=== PATIENT | female | born 1970 | race Caucasian/White ===

== ENCOUNTER 2016-06-29 07:07 | Observation (INO) | payer MEDICAID, SELFPAY ==
[2016-06-29] VITALS (16 sets, daily range): BP systolic 102–115; BP diastolic 57–76; PULSE 91–112; RESP 16–32; TEMP 36.4–36.9; O2SAT 95–99; BMI 16.4; BMI 14.5
--- NOTE | 2016-06-29 07:24 | RAD_ITS ---
STUDY: X-RAY CHEST REASON FOR EXAM: Female, 46 years old. The patient has a history of COPD. TECHNIQUE: AP and lateral views of the chest. COMPARISON: Comparison is made with prior study dated June 25, 2016. FINDINGS: EKG electrodes are seen. A battery pack device is seen overlying the right upper hemithorax. Hyperinflation. Once again, there is a severe degree of emphysematous changes in both lungs worse in the upper lobes and more prominent on the left side. This is unchanged. There is no demonstrated pleural abnormality. Normal size heart. Normal mediastinum and yamila. Normal visualized pulmonary arteries. Normal visualized aortic arch and descending thoracic aorta. Normal visualized thoracic spine. Normal visualized ribs, clavicles, and shoulders. There is no demonstrated abnormality of the visualized soft tissue structures of the upper abdomen. RAD/Chest PA and Lateral IMPRESSION: Hyperinflation. Severe emphysematous changes. There has been essentially no change since prior study. Electronically Signed: Jameson Navarro MD at 8:18 EDT Tel [phone], Service support [phone],
--- NOTE | 2016-06-29 07:24 | EKG12_ITS ---
Test Reason : SOB Blood Pressure : / mmHG Vent. Rate : 098 BPM Atrial Rate : 098 BPM P-R Int : 134 ms QRS Dur : 072 ms QT Int : 336 ms P-R-T Axes : 083 203 069 degrees QTc Int : 428 ms Sinus rhythm Biatrial enlargement Abnormal ECG Low voltage QRS Confirmed by LEBRON MINAYA ([id number]), video news editor MICHEL KINNEY ([id number]) on 07/01/2016 2:55:00 PM Referred By: CLAUDIA Confirmed By:LEBRON MINAYA
[2016-06-29] MEDS: Ipratropium/Albuterol Sulfate 3 ML AMPUL.NEB INHALATION ×5 (07:34→22:27)
[2016-06-29] MEDS: MethylPREDNISolone 125 MG/2 ML Vial IV (07:41)
[2016-06-29 07:57] LABS: Absolute Lymphocyte Count 3.38 X10^3/ul (0.83-4.51); Absolute Neutrophil Count 7.4 X10^3/uL (2.0-7.7); Basophil# 0.06 X10^3/uL; Basophil% 0.5 % (0-1); Eosinophil# 0.26 X10^3/uL; Eosinophils% 2.2 % (0-5); Hemoglobin 14.6 g/dl (12.0-15.0); Lymphocyte # 3.38 X10^3/ul (4.0); Lymphocyte % 28.3 % (19-41); Mean Corpuscular Hgb 31.2 pg (27.0-32.0); Mean Corpuscular Volume 91.9 fL (81-99); Mean Platelet Vol. 9.2 fl (6.2-12.0); Monocyte# 0.83 X10^3/uL; Monocyte% 6.9 % (0-10); Neutrophil # 7.39 X10^3/uL (2.7-7.7); Neutrophil % 61.8 % (47-70); Platelet Count 296 K/mm3 (150-450); RBC Distribution Width CV 12.8 % (11.6-14.6); Red Blood Count 4.68 M/mm3 (4.2-5.4)
[2016-06-29 07:58] LABS: POSITIVE COUNT NO; POSITIVE DIFFERENTIAL NO; POSITIVE MORPHOLOGY NO
[2016-06-29 08:10] LABS: Anion Gap 11 (5-15); BUN 8 mg/dL (7-18); BUN/Creat Ratio 12.5 RATIO (10-20); Chloride 98 mmol/L (98-107); Creatinine, Serum 0.64 mg/dL (0.55-1.02); EST Glomerular Filtration Rate 105 mL/min (>60); Est Glom Filt Rate - Afr Amer 127 mL/min (>60); Estimated Creatinine Clearance 75.86 ml/min; Glucose 95 mg/dL (70-110); Potassium 3.6 mmol/L (3.5-5.1); Sodium Level 137 mmol/L (136-145)
--- NOTE | 2016-06-29 08:25 | HP.PCM_ITS ---
History of Present Illness Date of Admission: 06/29/16 Chief Complaint: Shortness of breath The patient is a 46 year old femur female came into the ED complaining of shortness of breath. Patient states that she does have worsening shortness of breath she noticed for the last 2 weeks. Per patient she was treated as outpatient with antibiotics for which he thought his pneumonia, but she did not notice improvement. In the ED patient was tachypnea, labored breathing, but was saturating high 90s on 2 L of oxygen. She did have decreased air entry and wheezing all over. Afebrile. Mildly tachycardic. Patient reports worsening cough productive of yellow sputum for the last 2 weeks, pain in the level of right diaphragm that is persistent and is worse with coughing. She reports chills and rigors, although her temperature at home was 97?F. She reports decreased appetite, mild nausea, but no vomiting. Denies urinary/neuro complaints. She continues to smoke 1 cigarette every hour. Past medical history. Advanced COPD with severe emphysema. Malnutrition. Generalized anxiety disorder. Obsessive-compulsive disorder. Osteoporosis. PTSD. History of panic attacks. Restless leg syndrome. Tobacco use disorder. History of noncompliance with medical recommendations. Social history. Patient lives by herself, visiting aides assisting her with her daily activities. She is using walker to ambulate. Per patient she has some arrangements with assisted, but she is waiting for approval. Patient continues to smoke about 1 pack per day daily,, states that she smokes a cigarette every hour. Denies use of alcohol or street drugs. She is a former alcoholic. Family history. History of psychiatric problems, asthma, COPD, diabetes, dementia, CAD, hypertension. Past Medical History Past Medical History (Chronic Problems): Chronic Problems COPD emphysema severe (Chronic) Generalized anxiety disorder (Chronic) Moderate malnutrition (Chronic) Neuropathy (Chronic) Noncompliance (Chronic) Obsessive compulsive disorder (Chronic) Osteoporosis (Chronic) PTSD (post-traumatic stress disorder) (Chronic) Panic attacks (Chronic) Restless leg syndrome (Chronic) Tobacco abuse (Chronic) Underweight (Chronic) Allergies sulfasalazine Allergy (Verified 06/29/16 07:09) Hives aspartame [From Nutrasweet Aspartame] Adverse Reaction (Verified 06/29/16 07:09) light headedness and nausea light headedness and nausea citric acid Adverse Reaction (Verified 06/29/16 07:09) Mucosal lesions docusate sodium [From Colace] Adverse Reaction (Verified 06/29/16 07:09) dizzy, lightheaded, hallucinations dizzy, light headed, hallucinations fluoxetine Adverse Reaction (Verified 06/29/16 07:09) made me mean made me mean nicotine polacrilex [From Nicorette] Adverse Reaction (Verified 06/29/16 07:09) dizzy spells, light headedness dizzy spells, light headedness phenytoin sodium [From Dilantin] Adverse Reaction (Verified 06/29/16 07:09) made me feel drugged up used for scleroderma, made me feel drugged up phenytoin sodium extended [From Dilantin] Adverse Reaction (Verified 06/29/16 07 :09) made me feel drugged up Home Medications: Ambulatory Orders Medication Instructions Recorded Alendronate Sodium [Fosamax] 70 mg PO TH 02/12/15 Fluticasone/Salmeterol [Advair 1 puff INHALATION BID 02/12/15 250/50 Mcg Diskus] Pantoprazole Sodium [Protonix] 20 mg PO DAILY #30 tablet 08/10/15 Ergocalciferol [Vitamin D] 50,000 unit PO TH 11/06/15 Polyethylene Glycol 3350 [Miralax] 17 gm PO DAILY 11/06/15 Calcium Carbonate/Vitamin D3 2 tab PO DAILY 03/28/16 [Calcium 600-Vit D3 200 Tablet] Ipratropium/Albuterol Sulfate 3 ml INHALATION Q4H 03/28/16 [Duoneb] Guaifenesin [Mucinex] 1,200 mg PO BID #60 tablet 03/30/16 Levalbuterol Tartrate [Xopenex Hfa 2 puff INHALATION Q4H PRN PRN #1 04/23/16 Inhaler] hfa.aer.ad PredniSONE 40 mg PO DAILY@0800 #8 tablet 06/25/16 Surgical History: noncontributory Psychiatric History: No pertinent psych hx INSTRUCTIONAL SUPERVISOR History: No pertinent INSTRUCTIONAL SUPERVISOR history Smoking Status: Current every day smoker - *Family History Maternal History Items: - - Scoliosis and possible bipolar disorder Paternal History Items: Asthma, COPD, Diabetes, Dementia, Heart Disease, Hypertension Sibling History Items: Asthma Offspring History Items: Asthma Review of Systems Constitutional: Reports: Anorexia, Chills, Malaise, Weakness, Weight Change, Fatigue. Denies: Fever, Night Sweats Eyes: Denies: Vision Change HEENT: Denies: Visual Changes Cardiovascular: Reports: Chest Pain - At the level of right diaphragm. Denies: Chest Pressure, Chest Tightness, Edema, Light Headedness, Palpitations, Syncope Respiratory: Reports: Cough, Pleuritic Pain, Shortness of Breath, Shortness of breath at rest, Sputum production, Wheezing. Denies: Hemoptysis Gastrointestinal: Reports: Constipation, Nausea - With cough. Denies: Abdominal Pain, Diarrhea, Dyspepsia, Hematochezia, Melena, Vomiting Genitourinary: Denies: Dysuria, Hematuria, Hesitancy, Incontinence, Retention, Urgency Gynecological: Denies: Vaginal discharge, Vaginal itching Musculoskeletal: Denies: Hand Pain, Joint Pain, Leg Pain, Muscle pain Skin: Denies: Dryness, Jaundice, Lesions Neurological: Denies: Blurred vision, Double vision, Change in Speech, Slurred speech, Confusion, Difficulty swallowing, Focal weakness, Headaches, Incoordination, Numbness, Tingling, Tremor, Seizures Psychiatric: Reports: Anxiety, Depression. Denies: Suicidal Ideations Endocrine: Denies: Change in Body Habitus Hematologic/ Lymphatic: Denies: Adenopathy, Anemia, Petechiae, Purpura, Hx of blood clot VTE Information - Inpt Only VTE Present on Admission: No Objective: General: Patient is laying in bed, in mild respiratory distress due to tachypnea , using accessory muscles. She is able to speak in brief sentences. Awake, alert, oriented ?3. Noted significant muscle wasting all over, no fat tissue noticed, BMI of 14.5. HEENT: Atraumatic, Normocephalic. Clear conjunctiva. Oral mucosa is slightly dry. Neck: No nodules noted, no asymmetry. PERRLA. Skin: Clean, dry, thin and fragile. No visible rashes. Lungs: Diminished air entry bilaterally, wheezing all over, breathing is labored , tachypneic, use of accessory muscles. Mild tenderness to touch in the level of right hemidiaphragm. CVS: S1-S2 present, no murmurs appreciated, regular rate, good radial pulses. Capillary refill is less than 3 Seconds. Abdomen: Soft, nontender, nondistended, bowel sounds present. No CVA tenderness. Extremities: No clubbing, No cyanosis. No visible deformities. No lower extremity edema. Psych/Mental Status: Patient does look somewhat anxious, but cooperative and appropriate. Neuro: No focal neurological findings. - Physical Exam Vital Signs Temp Pulse Resp BP Pulse Ox 36.9 C 99 16 115/69 99 06/29/16 07:09 06/29/16 07:30 06/29/16 07:30 06/29/16 07:09 06/29/16 07:09 Oxygen Flow Rate 2 Oxygen Delivery Method Nasal Cannula Weight: 44.7 kg Body Mass Index (BMI) 16.4 Laboratory Tests Past 24 Hrs 06/29/16 06/29/16 07:30 07:30 WBC 12.0 H RBC 4.68 Hgb 14.6 Hct 43.0 MCV 91.9 MCH 31.2 MCHC 34.0 RDW 12.8 RDW Differential 43.0 Plt Count 296 MPV 9.2 Immature Gran % (Auto) 0.300 Neut % (Auto) 61.8 Lymph % (Auto) 28.3 [place] % (Auto) 6.9 Eos % (Auto) 2.2 Baso % (Auto) 0.5 Absolute Neuts (auto) 7.4 Absolute Lymphs (auto) 3.38 Total Counted Not Reportable Sodium 137 Potassium 3.6 Chloride 98 Carbon Dioxide 28.0 Anion Gap 11 BUN 8 Creatinine 0.64 Estim Creat Clear Calc 75.86 Est GFR (MDRD) Af Amer 127 Est GFR (MDRD) Non-Af 105 BUN/Creatinine Ratio 12.5 Glucose 95 Calcium 9.0 Troponin I < 0.02 Assessment/Plan * Acute COPD exacerbation, appears to be in respiratory distress on arrival, although no hypoxia noted. Patient failed outpatient therapy. Chest x-ray is unchanged, mild elevation of WBC. Clinically she does have acute COPD exacerbation. Suspect upper respiratory infection/acute bronchitis, will follow with respiratory panel and sputum cultures. COPD treatment per protocol. * Failure to thrive with severe deconditioning. PT/OT to evaluate and treat. Patient states it had previous arrangements with assisted placement. Like to be placed in a assisted. * Severe malnutrition. Due to chronic illness as above. Inspector Experimental Assembly consulted. * Tobacco use disorder. Patient still smokes 1 cigarette every hour, states that she is allergic to nicotine patch. I had extensive discussion with her about nicotine use and imminent progression of her COPD, nevertheless it does not sound like she is ready to quit. * Patient does look slightly dehydrated, reports decreased oral intake due to increasing shortness of breath. Will give IV fluids. Encourage oral intake. * DVT prophylaxis with heparin SQ. * The rest of the patient's chronic medical conditions are stable, no signs of exacerbation. Mayra Dictation.
[2016-06-29] MEDS: Dext 5%-0.45% NS 1,000 ML 75 ML IV (10:42)
--- NOTE | 2016-06-29 10:58 | EDS_ITS ---
DATE OF SERVICE: 06/29/2016 METHOD OF ARRIVAL: EMS. CHIEF COMPLAINT: Shortness of breath. PRIMARY CARE: Dr. Mari. HENDRICKSON HISTORY: A 46-year-old female with history of COPD. She currently is on home O2, but this may not last, PTSD, neuropathy, panic disorder, restless leg. The patient comes in with shortness of breath going on for a couple of weeks, gotten worse. She describes it worsening with exertion, it is moderate. She states that ____ and breathing treatments have helped, but she still was worsened. She describes a productive yellow sputum. She has had rhinorrhea. She describes some chest tightness for more than 24 hours constantly. REVIEW OF SYSTEMS: Other than the runny nose, cough, chest discomfort, she has had some loose diarrhea. The patient was seen here on the for the same complaints, was discharged home on steroids, which she has continued to take, but still does not feel well. PHYSICAL EXAMINATION: VITAL SIGNS: Stable. She is tachycardic and tachypneic, but not hypoxic on her O2. HEENT: Unremarkable. NECK: Nontender. HEART: Regular, but borderline tachycardic. LUNGS: Have wheezing throughout. ABDOMEN: Soft, nontender with the remainder of the exam unremarkable. TESTS: Chest x-ray shows hyperaeration, no consolidation. EKG is sinus at 98 with bilateral atrial enlargement. CBC: Her white count is 12, suspect from steroids. Chemistry panel is normal. Troponin is negative. EMERGENCY DEPARTMENT COURSE: The patient was started on IV fluids, aerosols and steroids were given IV. At this time, she has improved, but not back to her baseline. Plan will be admit. CLINICAL IMPRESSION: 1. Dyspnea. 2. Chronic obstructive pulmonary disease exacerbation. MD Emerson Roper C: Ruddy Mari DO T: [facility] JOB: [id number]
[2016-06-29] MEDS: Pantoprazole Sodium 20 MG Tablet PO (13:29)
[2016-06-29] MEDS: Polyethylene Glycol 3350 17 GM PACKET PO (13:29)
[2016-06-29] MEDS: Calcium Carb/Vitamin D 1 TABLET Tablet 2 TABLET PO (13:30)
[2016-06-30] VITALS (17 sets, daily range): BP systolic 105–116; BP diastolic 62–69; PULSE 93–124; RESP 16–20; TEMP 36.6–36.7; O2SAT 2–98
[2016-06-30] MEDS: Dext 5%-0.45% NS 1,000 ML 75 ML IV (01:12)
[2016-06-30] MEDS: Ipratropium/Albuterol Sulfate 3 ML AMPUL.NEB INHALATION ×6 (02:45→23:40)
[2016-06-30 05:40] LABS: Absolute Lymphocyte Count 0.84 X10^3/ul (0.83-4.51); Absolute Neutrophil Count 16.4 X10^3/uL (2.0-7.7); Basophil# 0.01 X10^3/uL; Basophil% 0.1 % (0-1); Hemoglobin 12.9 g/dl (12.0-15.0); Lymphocyte # 0.84 X10^3/ul (4.0); Lymphocyte % 4.6 % (19-41); Mean Corp Hgb Conc 33.9 g/gl (32-36); Mean Corpuscular Hgb 30.9 pg (27.0-32.0); Mean Corpuscular Volume 91.1 fL (81-99); Mean Platelet Vol. 9.5 fl (6.2-12.0); Neutrophil # 16.44 X10^3/uL (2.7-7.7); Neutrophil % 89.1 % (47-70); Platelet Count 302 K/mm3 (150-450); RBC Distribution Width CV 12.6 % (11.6-14.6); RBC Distribution Width SD 40.9 fl (35.1-43.9); Red Blood Count 4.17 M/mm3 (4.2-5.4); White Blood Count 18.4 K/mm3 (4.4-11.0)
[2016-06-30 05:53] LABS: POSITIVE COUNT NO; POSITIVE DIFFERENTIAL NO; POSITIVE MORPHOLOGY NO
[2016-06-30 06:12] LABS: Anion Gap 8 (5-15); BUN 9 mg/dL (7-18); BUN/Creat Ratio 14.2 RATIO (10-20); Calcium,Total 8.8 mg/dL (8.5-10.1); Chloride 101 mmol/L (98-107); Creatinine, Serum 0.64 mg/dL (0.55-1.02); EST Glomerular Filtration Rate 106 mL/min (>60); Est Glom Filt Rate - Afr Amer 128 mL/min (>60); Estimated Creatinine Clearance 69.24 ml/min; Glucose 164 mg/dL (70-110); Potassium 4.1 mmol/L (3.5-5.1); Sodium Level 135 mmol/L (136-145)
[2016-06-30] MEDS: Polyethylene Glycol 3350 17 GM PACKET PO (07:49)
[2016-06-30] MEDS: Calcium Carb/Vitamin D 1 TABLET Tablet 2 TABLET PO (07:49)
[2016-06-30] MEDS: Pantoprazole Sodium 20 MG Tablet PO (07:49)
--- NOTE | 2016-06-30 08:56 | PN_ITS ---
Subjective: Patient is a 46-year-old female with history of advanced COPD came into the ED complaining of worsening shortness of breath. Admitted to the hospital due to COPD exacerbation. Subjective. Patient was seen and examined, sitting in bed, more comfortable today, says that feels better and her breathing is better today. She was able to ambulate with physical therapy more comfortable today. We were able to wean her off oxygen. Denies pain. Denies fever/chills, no nausea/vomiting/diarrhea, no / neuro complaints. General: Patient is sitting in bed, comfortable and cooperative. Awake, alert, oriented ?3. Noted significant muscle wasting all over, no fat tissue noticed, BMI of 14.5. HEENT: Atraumatic, Normocephalic. Clear conjunctiva. Oral mucosa is moist. Neck: No nodules noted, no asymmetry. PERRLA. Skin: Clean, dry, thin and fragile. No visible rashes. Lungs: Improved air entry, minimal wheezing mostly in the upper lobes. CVS: S1-S2 present, no murmurs appreciated, regular rate, good radial pulses. Abdomen: Soft, nontender, nondistended, bowel sounds present. No CVA tenderness. Extremities: No clubbing, No cyanosis. No visible deformities. No lower extremity edema. Psych/Mental Status: Patient is comfortable, cooperative and appropriate. Neuro: No focal neurological findings. Assessment and plan. * Acute COPD exacerbation, appeared to be in respiratory distress on arrival, although no hypoxia noted. Patient failed outpatient therapy. Chest x-ray is unchanged, mild elevation of WBC. Clinically she does have acute COPD exacerbation. Suspect upper respiratory infection/acute bronchitis, will follow with respiratory panel and sputum cultures. COPD treatment per protocol. * History of chronic hypoxic respiratory failure, on home oxygen at 2 L continuously. Patient's hypoxia is improving, will try to wean off oxygen as tolerated. * Leukocytosis-likely reactive due to systemic steroids. * Failure to thrive with severe deconditioning. PT/OT to evaluate and treat. Patient states it had previous arrangements with snf placement. Like to be placed in a snf. * Severe malnutrition. Due to chronic illness as above. Ux Architect consulted. * Tobacco use disorder. Patient still smokes 1 cigarette every hour, states that she is allergic to nicotine patch. I had extensive discussion with her about nicotine use and imminent progression of her COPD, nevertheless it does not sound like she is ready to quit. * Dehydration. Patient did look slightly dehydrated on admission, reports decreased oral intake due to increasing shortness of breath. Gave IV fluids. Encourage oral intake. Improved. * DVT prophylaxis with heparin SQ. * The rest of the patient chronic medical conditions are stable, no signs of exacerbation. Dragon Dictation. Vitals/I&O's: Vital Signs Temp Pulse Resp BP Pulse Ox 36.7 C 102 20 114/69 2 06/30/16 07:46 06/30/16 07:57 06/30/16 07:46 06/30/16 07:46 06/30/16 07:46 Oxygen Flow Rate 2 Oxygen Delivery Method Nasal Cannula Weight: 40.8 kg Body Mass Index (BMI) 14.5 Intake and Output for Last 24 Hours 06/28/16 06/29/16 06/30/16 23:59 23:59 23:59 Intake Total 3918 1716 Output Total 3850 2200 Balance 68 -484 Microbiology Past 72 Hours 06/29/16 10:48 Mucosa - Nasopharyngeal Respiratory Panel (PCR) - Final Laboratory Results 06/30/16 05:10: Sodium 135 L, Potassium 4.1, Chloride 101, Carbon Dioxide 26.0, Anion Gap 8, BUN 9, Creatinine 0.64, Estim Creat Clear Calc 69.24, Est GFR (MDRD ) Af Amer 128, Est GFR (MDRD) Non-Af 106, BUN/Creatinine Ratio 14.2, Glucose 164 H, Calcium 8.8 06/30/16 05:10: WBC 18.4 H, RBC 4.17 L, Hgb 12.9, Hct 38.0, MCV 91.1, MCH 30.9, MCHC 33.9, RDW 12.6, RDW Differential 40.9, Plt Count 302, MPV 9.5, Immature Gran % (Auto) 0.200, Neut % (Auto) 89.1 H, Lymph % (Auto) 4.6 L, [place] % (Auto) 6.0, Eos % (Auto) 0.0, Baso % (Auto) 0.1, Absolute Neuts (auto) 16.4 H, Absolute Lymphs (auto) 0.84, Total Counted Not Reportable Current Medications Acetaminophen (Tylenol) 650 mg PO Q6H PRN PRN PRN Reason: Mild Pain (scale 0-3)/T>100.7 Albuterol Sulfate (Ventolin Aerosols) 2.5 mg INHALATION Q2H PRN PRN PRN Reason: SHORTNESS OF BREATH Albuterol/Ipratropium (Duoneb) 3 ml INHALATION Q4H.RT [facility] Last Admin: 06/30/16 07:26 Dose: 3 ml Calcium/Vitamin D (Os-Phillip 500mg + D) 2 tablet PO DAILYCM [facility] Last Admin: 06/30/16 07:49 Dose: 2 tablet Guaifenesin (Mucinex) 1,200 mg PO BID [facility] Last Admin: 06/30/16 07:49 Dose: 1,200 mg Heparin Sodium (Porcine) (Heparin Na) 5,000 unit SC BID [facility] Last Admin: 06/30/16 07:48 Dose: Not Given Dextrose/Sodium Chloride () 1,000 mls @ 75 mls/hr IV .[id number] [facility] Stop: 06/30/16 12:33 Last Admin: 06/30/16 01:12 Dose: 75 mls/hr Levofloxacin 500 mg/ N/A 100 mls @ 100 mls/hr IV Q24 [facility] Stop: 07/03/16 10:59 Last Admin: 06/29/16 12:21 Dose: 100 mls/hr Methylprednisolone (Solu-Medrol) 40 mg IV Q8 [facility] Stop: 06/30/16 14:01 Last Admin: 06/30/16 05:27 Dose: 40 mg Nutritional Formula (Lactose Free) (Ensure Enlive) 120 ml PO 4X/DAY [facility] Last Admin: 06/30/16 07:48 Dose: Not Given Ondansetron HCl (Zofran) 4 mg IV Q8H PRN PRN PRN Reason: Nausea Pantoprazole Sodium (Protonix) 20 mg PO DAILY [facility] Last Admin: 06/30/16 07:49 Dose: 20 mg Polyethylene Glycol (Miralax) 17 gm PO DAILY [facility] Last Admin: 06/30/16 07:49 Dose: 17 gm Prednisone (Prednisone) 40 mg PO DAILY@0800 [facility] Sodium Chloride () 5 ml IV UD PRN PRN Reason: SALINE FLUSH
--- NOTE | 2016-06-30 11:10 | TREXTCAR_ITS ---
- Diet 06/29/16 09:14 Diet:Regular Diet Type of Dietary Supplement:: [place] Breakfast - Routine Orders/Code Status Enema Type: Fleetz Enema Frequency: Daily PRN Suppository Type: Dulcolax 10mg Suppository Frequency: Daily PRN O2 Frequency: PRN Keep PO Greater than or Equal to (%): 90 Routine Lab Work: CBC, BMP, - - Repeat blood work in 1 - Therapies Weight Bearing: Full weight bearing Physical Therapy: Eval and Treat Occupational Therapy: Eval and Treat - Allergies/Procedures Done in Hospital Allergies/Adverse Reactions: Allergies sulfasalazine Allergy (Verified 06/29/16 07:09) Hives aspartame [From Nutrasweet Aspartame] Adverse Reaction (Verified 06/29/16 07:09) light headedness and nausea light headedness and nausea citric acid Adverse Reaction (Verified 06/29/16 07:09) Mucosal lesions docusate sodium [From Colace] Adverse Reaction (Verified 06/29/16 07:09) dizzy, lightheaded, hallucinations dizzy, light headed, hallucinations fluoxetine Adverse Reaction (Verified 06/29/16 07:09) made me mean made me mean nicotine polacrilex [From Nicorette] Adverse Reaction (Verified 06/29/16 07:09) dizzy spells, light headedness dizzy spells, light headedness phenytoin sodium [From Dilantin] Adverse Reaction (Verified 06/29/16 07:09) made me feel drugged up used for scleroderma, made me feel drugged up phenytoin sodium extended [From Dilantin] Adverse Reaction (Verified 06/29/16 07 :09) made me feel drugged up - Type of Care/Length of Stay Estimated LOS: Convalescent Care Less Than 30 days Type of Care Needed: Skilled Rehab Potential: Fair Prognosis: Fair - Additional Orders/Day of Discharge Day of Discharge: 07/01/16 - Dietary and Speech Recommendations Dietitian Recommendations/Changes: Recommend regular, liberal diet d/t malnutrition. Will d/c ensure medpass d/t pt's dislike. Will provide fortified foods. Will provide magic cup w/ dinner. - Follow Up Care Primary Care Physician: Ruddy Mari DO [Primary Care Provider] - Please follow up with your Primary Care Physician in: 1 WEEK Please Follow Up With: Tres You When: 2 WEEKS
--- NOTE | 2016-06-30 11:19 | CASEMGMT ---
Addendum entered by Libia Sood 06/30/16 14:55: SW spoke w/Bernadette Roa with [facility], let her know we are working on getting pt into [facility] from here. She asked for SW to let her know when pt goes to [facility]. ADRIANNE explained it will be today or tomorrow, SW will continue to follow. SIDRA Walker, [employer]AC[employer] Original Note: Addendum entered by Libia Sood 06/30/16 12:47: SW faxed all information to [facility] for a level of care. SW will continue to follow. SIDRA Walker, [employer]PER[employer]AC[employer] Original Note: SW spoke w/physician during rounds, pt had told physician she was planning to go to a half-way from home. SW met w/pt in room in regard to discharge plan. She states that she had spoken with the social science manager, Nichole at [facility], and that her upper caser Bernadette Roa with [facility] was working on getting pt into [facility]. She states that her upper caser at [facility], Obdulia Morgan also is helping. Pt is agreeable to go to [facility]. ADRIANNE explained will see if we can get pt into [facility] from here. ADRIANNE called Bernadette Roa, message left. SW called [facility], spoke w/Nichole, she confirms they were going to take pt. She has not done a PAS/RR or level of care yet. They would be able to take pt, she is okay w/SW doing a hospital exemption since pt is here as an inpt. ADRIANNE explained will work on getting a level of care. Nichole states this would be helpful. ADRIANNE faxed clinical information to [facility]. ADRIANNE will fax information for level of care to [facility] once all needed paperwork is completed. SIDRA Walker, [employer]
[2016-06-30] MEDS: 0.9% NaCl Peripheral Flush Adult/Peds 5 ML IV (12:57)
--- NOTE | 2016-06-30 14:12 | CHAPLAIN ---
patient has been seen by this pilot captain numerous times in other admissions to hospital; therefore I have background information already on this story; pt always wants pilot captain and the support of the priests; pt tells me that she is being transferred to [facility]; pt says this is a new development and it is happening fast; pt has concerns about going to an ECF but is accepting of this; pt wonders how she can have her possessions moved to there; there is some anxiety for her; at this point pt tells me that she cannot ask her aunt because her aunt will take away all of her cigarettes; this will come up again later and we talk about her continual smoking even though she has a small lung capacity; pt says that she has used less cigarettes in recent months but will not stop because she has the right to smoke if she wants to; pt asks me to pray that her lung capacity will increase and I ask her how consistent is that with her willingness to stop; pt responds that God can do anything for us; I offer prayer and support
--- NOTE | 2016-06-30 16:32 | CASEMGMT ---
The level of care has not yet been received from [facility]. SW let the physician know pt will be here until tomorrow. SW also let the pt know she will be here until tomorrow. SW will continue to follow. SW did complete the hospital exemption in the HENS system. SIDRA Walker, [employer]IVER BOX TOE
--- NOTE | 2016-06-30 22:52 | NURSING ---
Patients home advair placed in bottom med drawer with patients name placed on bag, this was brought in by patients ex- Moises. Will notify next shift.
[2016-07-01] VITALS (11 sets, daily range): BP systolic 120–129; BP diastolic 62–74; PULSE 99–122; RESP 16–24; TEMP 36.4–36.9; O2SAT 94–97
[2016-07-01] MEDS: Ipratropium/Albuterol Sulfate 3 ML AMPUL.NEB INHALATION ×3 (03:12→11:01)
[2016-07-01 06:46] LABS: Absolute Lymphocyte Count 2.63 X10^3/ul (0.83-4.51); Absolute Neutrophil Count 12.6 X10^3/uL (2.0-7.7); Basophil# 0.01 X10^3/uL; Basophil% 0.1 % (0-1); Eosinophil# 0.04 X10^3/uL; Eosinophils% 0.2 % (0-5); Hematocrit 40.1 % (37-47); Hemoglobin 13.2 g/dl (12.0-15.0); Lymphocyte # 2.63 X10^3/ul (4.0); Lymphocyte % 15.8 % (19-41); Mean Corp Hgb Conc 32.9 g/gl (32-36); Mean Corpuscular Hgb 30.4 pg (27.0-32.0); Mean Corpuscular Volume 92.4 fL (81-99); Mean Platelet Vol. 9.5 fl (6.2-12.0); Monocyte# 1.32 X10^3/uL; Monocyte% 7.9 % (0-10); Neutrophil % 75.8 % (47-70); Platelet Count 296 K/mm3 (150-450); RBC Distribution Width CV 12.8 % (11.6-14.6); RBC Distribution Width SD 42.3 fl (35.1-43.9); Red Blood Count 4.34 M/mm3 (4.2-5.4); White Blood Count 16.6 K/mm3 (4.4-11.0)
[2016-07-01 06:59] LABS: POSITIVE COUNT NO; POSITIVE DIFFERENTIAL NO; POSITIVE MORPHOLOGY NO
--- NOTE | 2016-07-01 07:52 | PN_ITS ---
Vitals/I&O's: Vital Signs Temp Pulse Resp BP Pulse Ox 36.9 C 114 20 120/73 96 07/01/16 02:10 07/01/16 07:33 07/01/16 03:12 07/01/16 02:10 07/01/16 02:10 Oxygen Flow Rate 1 Oxygen Delivery Method Room Air Weight: 40.8 kg Body Mass Index (BMI) 14.5 Intake and Output for Last 24 Hours 06/29/16 06/30/16 07/01/16 23:59 23:59 23:59 Intake Total 3918 3841 1000 Output Total 3850 5200 2400 Balance 33 -1619 -2434 Microbiology Past 72 Hours 06/30/16 08:35 Sputum, Expectorated/Coughed Gram Stain - Final 06/29/16 10:48 Mucosa - Nasopharyngeal Respiratory Panel (PCR) - Final Laboratory Results 07/01/16 05:56: WBC 16.6 H, RBC 4.34, Hgb 13.2, Hct 40.1, MCV 92.4, MCH 30.4, MCHC 32.9, RDW 12.8, RDW Differential 42.3, Plt Count 296, MPV 9.5, Immature Gran % (Auto) 0.200, Neut % (Auto) 75.8 H, Lymph % (Auto) 15.8 L, Iron % (Auto) 7.9, Eos % (Auto) 0.2, Baso % (Auto) 0.1, Absolute Neuts (auto) 12.6 H, Absolute Lymphs (auto) 2.63, Total Counted Not Reportable Current Medications Acetaminophen (Tylenol) 650 mg PO Q6H PRN PRN PRN Reason: Mild Pain (scale 0-3)/T>100.7 Albuterol Sulfate (Ventolin Aerosols) 2.5 mg INHALATION Q2H PRN PRN PRN Reason: SHORTNESS OF BREATH Albuterol/Ipratropium (Duoneb) 3 ml INHALATION Q4H.RT [facility] Last Admin: 07/01/16 06:40 Dose: 3 ml Calcium/Vitamin D (Os-Phillip 500mg + D) [facility] Admin: 06/30/16 07:49 Dose: 2 tablet Guaifenesin (Mucinex) 1,200 mg PO BID [facility] Last Admin: 03/16/17 21:55 Dose: 1,200 mg Heparin Sodium (Porcine) (Heparin Na) 5,000 unit SC BID [facility] Last Admin: 06/30/16 21:54 Dose: Not Given Levofloxacin (Levaquin) 500 mg PO DAILY@0600 [facility] Stop: 07/03/16 06:01 Last Admin: 07/01/16 05:22 Dose: 500 mg Ondansetron HCl (Zofran) 4 mg IV Q8H PRN PRN PRN Reason: Nausea Pantoprazole Sodium (Protonix) 20 mg PO DAILY [facility] Last Admin: 06/30/16 07:49 Dose: 20 mg Polyethylene Glycol (Miralax) 17 gm PO DAILY [facility] Last Admin: 06/30/16 07:49 Dose: 17 gm Prednisone (Prednisone) 40 mg PO DAILY@0800 [facility] Sodium Chloride () 5 ml IV UD PRN PRN Reason: SALINE FLUSH Last Admin: 06/30/16 12:57 Dose: 5 ml
[2016-07-01] MEDS: Polyethylene Glycol 3350 17 GM PACKET PO (08:03)
[2016-07-01] MEDS: Pantoprazole Sodium 20 MG Tablet PO (08:04)
[2016-07-01] MEDS: Calcium Carb/Vitamin D 1 TABLET Tablet 2 TABLET PO (08:04)
[2016-07-01] MEDS: Albuterol 2.5 MG/3 ML VIAL.NEB. INHALATION (08:41)
--- NOTE | 2016-07-01 10:59 | PCM.DC.SUM ---
Discharge Date and Diagnosis Date of Admission: 06/29/16 Date of Discharge: 07/01/16 - Primary Discharge Diagnosis Acute COPD exacerbation Failure to thrive with severe deconditioning Severe malnutrition Tobacco use disorder Dehydration - Secondary Discharge Diagnosis Chronic Problems COPD emphysema severe (Chronic) Generalized anxiety disorder (Chronic) Moderate malnutrition (Chronic) Neuropathy (Chronic) Noncompliance (Chronic) Obsessive compulsive disorder (Chronic) Osteoporosis (Chronic) PTSD (post-traumatic stress disorder) (Chronic) Panic attacks (Chronic) Restless leg syndrome (Chronic) Tobacco abuse (Chronic) Underweight (Chronic) Hospital Course and Treatment Imaging Results: Clinical Impression(s) from Imaging Studies Chest X-Ray 06/29/16 07:24 IMPRESSION: Hyperinflation. Severe emphysematous changes. There has been essentially no change since prior study. Electronically Signed: Jameson Navarro MD at 8:18 EDT Tel [phone], Service support [phone], Operations: None Summary of Care Provided: Patient is a 46-year-old female with history of advanced COPD came into the ED complaining of worsening shortness of breath. Admitted to the hospital due to COPD exacerbation. Hospital course: Acute COPD exacerbation, appeared to be in respiratory distress on arrival, although no hypoxia noted. Patient failed outpatient therapy. Chest x-ray is unchanged, mild elevation of WBC. Clinically she does have acute COPD exacerbation. Suspect upper respiratory infection/acute bronchitis, respiratory panel and sputum cultures-negative. COPD treatment per protocol. History of chronic hypoxic respiratory failure, on home oxygen at 2 L continuously. Patient's hypoxia is improving, patient was ultimately weaned off oxygen, did well on room air. Leukocytosis-likely reactive due to systemic steroids. Failure to thrive with severe deconditioning. PT/OT to evaluate and treat. Patient states it had previous arrangements with penitentiary placement. Like to be placed in a penitentiary. Severe malnutrition. Due to chronic illness as above. Road Grader Operator consulted. Tobacco use disorder. Patient still smokes 1 cigarette every hour, states that she is allergic to nicotine patch. I had extensive discussion with her about nicotine use and imminent progression of her COPD, nevertheless it does not sound like she is ready to quit. Dehydration. Patient did look slightly dehydrated on admission, reports decreased oral intake due to increasing shortness of breath. Gave IV fluids. Encourage oral intake. Improved. DVT prophylaxis with heparin SQ. The rest of the patient chronic medical conditions are stable, no signs of exacerbation. On the day of discharge patient was seen and examined. Sitting in bed, comfortable. Denies any new complaints. No new findings of the physical exam. Discussed with patient current medical condition, options and plans for management. Patient understood and agreed. All questions were answered. Dragon dictation. Home Medications: Medications to take at Discharge Alendronate Sodium [Fosamax] 70 mg PO TH 02/12/15 Fluticasone/Salmeterol [Advair 250/50 Mcg Diskus] 1 puff INHALATION BID 02/12/15 Pantoprazole Sodium [Protonix] 20 mg PO DAILY #30 tablet 08/10/15 Ergocalciferol [Vitamin D] 50,000 unit PO TH 11/06/15 Polyethylene Glycol 3350 [Miralax] 17 gm PO DAILY 11/06/15 Calcium Carbonate/Vitamin D3 [Calcium 600-Vit D3 200 Tablet] 2 tab PO DAILY 03/28/16 Ipratropium/Albuterol Sulfate [Duoneb] 3 ml INHALATION Q4H 03/28/16 Guaifenesin [Mucinex] 1,200 mg PO BID #60 tablet 03/30/16 Levalbuterol Tartrate [Xopenex Hfa Inhaler] 2 puff INHALATION Q4H PRN PRN #1 hfa.aer.ad 04/23/16 Albuterol Aerosols [Ventolin Aerosols] 2.5 mg INHALATION Q2H PRN PRN #0 vial.neb. 07/01/16 Levofloxacin [Levaquin] 500 mg PO DAILY@0600 #4 tablet 07/01/16 Prednisone 10 mg PO DAILY #26 tab.ds.pk 07/01/16 Senna [Senokot] 1 tablet PO DAILY tablet 07/01/16 Following Prescrptions Were Given to Patient: Prednisone 10 mg PO DAILY #26 tab.ds.pk Primary Care Physician: Ruddy Mari DO [Primary Care Provider] - Please follow up with your Primary Care Physician in: 1 WEEK Please Follow Up With: Tres You When: 2 WEEKS Disposition: Half-Way facility Minutes spent on discharge:: 40 Patient Condition:: Fair Meaningful Use Info Meaningful Use Diagnoses (Choose all that apply): None applicable
--- NOTE | 2016-07-01 11:32 | CASEMGMT ---
SW received intermediate level of care from [facility]. Physician completed discharge paperwork, SW faxed it to [facility] along with the level of care and hospital exemption. SW set up a 1pm ambulette w/[facility] [place]. SW let pt know, she is agreeable. SW also let Nichole at [facility] know the time, RN here also knows the time. No further needs are anticipated. SIDRA Walker, CONTRACT SHELTERED WORKSHOP SUPERVISOR
== END 2016-07-01 13:02 | disposition skilled nursing facility (03) | DRG 140 ==
LOC: ED 08-31 08:10 → MS2 08-31 08:10
PROVIDERS: Admitting Provider Internal Medicine; Emergency Provider Emergency Medicine; Family Provider Student in an Organized Health Care Education/Training Program; PCP Student in an Organized Health Care Education/Training Program; Visit Provider Internal Medicine
DX: J44.1 Chronic obstructive pulmonary disease with (acute) exacerbation (principal); E43 Unspecified severe protein-calorie malnutrition; Z68.1 Body mass index [BMI] 19.9 or less, adult; Z99.81 Dependence on supplemental oxygen; R62.7 Adult failure to thrive; F17.210 Nicotine dependence, cigarettes, uncomplicated; E86.0 Dehydration; F41.1 Generalized anxiety disorder; G62.9 Polyneuropathy, unspecified; F42.9 Obsessive-compulsive disorder, unspecified; M81.0 Age-related osteoporosis without current pathological fracture; F43.12 Post-traumatic stress disorder, chronic; G25.81 Restless legs syndrome; F41.0 Panic disorder [episodic paroxysmal anxiety]; Z91.19 Patient's noncompliance with other medical treatment and regimen; J96.11 Chronic respiratory failure with hypoxia
CPT/HCPCS: 36415; 71020; 80048; 84484; 85025; 87070; 87205; 87633; 93005; 94640; 97116; 97161; 97166; 97802; 99218; 99285; G0378; J7799

== ENCOUNTER 2018-07-27 12:08 | Inpatient (IN) | payer MEDICAID, SELFPAY ==
[2018-07-27] VITALS (18 sets, daily range): BP systolic 87–117; BP diastolic 50–86; PULSE 88–102; RESP 13–24; TEMP 36.2–37.2; O2SAT 93–98; BMI 15.0; BMI 14.1
--- NOTE | 2018-07-27 12:19 | ED.RN ---
After being checked in Pt expresses multiple new complaints. States shes not eating and drinking because I just don't feel like it Pt expresses she feels dizzy and nauseous at times. When asked when all these symptoms started pt states they have been going on for a while
--- NOTE | 2018-07-27 12:32 | EKG12_ITS ---
Test Reason : CP ADMISSION Blood Pressure : / mmHG Vent. Rate : 097 BPM Atrial Rate : 097 BPM P-R Int : 124 ms QRS Dur : 080 ms QT Int : 430 ms P-R-T Axes : 085 082 244 degrees QTc Int : 546 ms Normal sinus rhythm Pulmonary disease pattern ST & Marked T wave abnormality, consider anterolateral ischemia Prolonged QT Abnormal ECG When compared with ECG of 27-JUL-2018 12:53, MANUAL COMPARISON REQUIRED, DATA IS UNCONFIRMED Confirmed by RONEN WASHINGTON, JUNG ([id number]), school photograph editor MICHEL KINNEY ([id number]) on 08/01/2018 1:46:23 PM Referred By: Juan Skaggs Confirmed By:JUNG HARDWICK MD
--- NOTE | 2018-07-27 12:33 | RAD_ITS ---
STUDY: X-RAY CHEST REASON FOR EXAM: Female, 48 years old. Cough and shortness of breath. TECHNIQUE: Single AP portable view of the chest. COMPARISON: Comparison is made with prior study dated June 29, 2016. FINDINGS: Marked degree of hyperinflation. Marked degree of the increased bilateral bronchovascular markings especially in the upper lobes suggestive of diffuse emphysematous changes and possible bullous formation. There has been essentially no change as compared to prior study. Blunting of both costophrenic angles. Normal size heart. Normal mediastinum and yamila. Normal visualized pulmonary arteries. Normal visualized aortic arch and descending thoracic aorta. Normal visualized thoracic spine. Normal visualized ribs, clavicles, and shoulders. There is no demonstrated abnormality of the visualized soft tissue structures of the upper abdomen. RAD/Chest 1 View (Portable) IMPRESSION: Stable examination. Marked degree of hyperinflation as well as decreased bilateral bronchovascular markings suggestive of severe emphysema with possible bullous formation in both lungs. Electronically Signed: Jameson Navarro, at 12:51 EDT , Service support ,
[2018-07-27] MEDS: MethylPREDNISolone 125 MG/2 ML Vial IV (12:54)
[2018-07-27] MEDS: Ipratropium/Albuterol Sulfate 3 ML AMPUL.NEB INHALATION ×3 (12:54→23:04)
[2018-07-27] MEDS: Albuterol 2.5 MG/3 ML VIAL.NEB. INHALATION (12:54)
[2018-07-27 13:06] LABS: Absolute Lymphocyte Count 1.16 X10^3/ul (0.83-4.51); Absolute Neutrophil Count 7.4 X10^3/uL (2.0-7.7); Basophil# 0.03 X10^3/uL; Basophil% 0.3 % (0-1); Eosinophil# 0.02 X10^3/uL; Eosinophils% 0.2 % (0-5); Hemoglobin 13.7 g/dl (12.0-15.0); Lymphocyte # 1.16 X10^3/ul (4.0); Mean Corp Hgb Conc 32.6 g/gl (32-36); Mean Corpuscular Hgb 29.7 pg (27.0-32.0); Mean Corpuscular Volume 91.1 fL (81-99); Mean Platelet Vol. 10.5 fl (6.2-12.0); Monocyte# 0.32 X10^3/uL; Monocyte% 3.6 % (0-10); Neutrophil # 7.35 X10^3/uL (2.7-7.7); Neutrophil % 82.8 % (47-70); POSITIVE COUNT NO; POSITIVE DIFFERENTIAL NO; POSITIVE MORPHOLOGY NO; Platelet Count 232 K/mm3 (150-450); RBC Distribution Width CV 13.6 % (11.6-14.6); RBC Distribution Width SD 44.9 fl (35.1-43.9); Red Blood Count 4.61 M/mm3 (4.2-5.4); White Blood Count 8.9 K/mm3 (4.4-11.0)
[2018-07-27] MEDS: Aspirin 81 MG TAB.CHEW 162 MG PO (13:07)
[2018-07-27 13:16] LABS: Anion Gap 2 (5-15); BUN 5 mg/dL (7-18); BUN/Creat Ratio 7.4 RATIO (10-20); Calcium,Total 9.3 mg/dL (8.5-10.1); Chloride 101 mmol/L (98-107); Creatinine, Serum 0.68 mg/dL (0.55-1.02); EST Glomerular Filtration Rate 98 mL/min (>60); Est Glom Filt Rate - Afr Amer 119 mL/min (>60); Estimated Creatinine Clearance 65.91 ml/min; Glucose 142 mg/dL (74-106); Potassium 4.2 mmol/L (3.5-5.1); Sodium Level 138 mmol/L (136-145)
[2018-07-27 14:06] LABS: Partial Thromboplast Time 32.5 Seconds (24.1-36.2)
[2018-07-27] MEDS: HEPARIN/D5w 25,000 UNITS 25,000 UNITS/250 ML IV.SOLN. 7 UNITS IV (14:09)
--- NOTE | 2018-07-27 14:25 | CON.PCM_ITS ---
Problem List (1) Chest pain Status: Acute (2) Abnormal EKG Status: Acute (3) Non-STEMI (non-ST elevated myocardial infarction) Status: Acute (4) Shortness of breath Status: Acute (5) Tobacco abuse Status: Chronic Reason for Consult Date of Consultation: 07/27/18 Reason for Consultation: Chest pain, non-STEMI, abnormal EKG, tobacco abuse History of Present Illness: The patient is a 48 year old F with severe COPD, on chronic O2 therapy, status post tracheostomy in 2018, despite all this is a current half pack per day smoker, used to smoke about 5 packs/day starting in 1986. Patient has no known coronary artery disease and is never had a catheterization. She apparently sees Dr. Katz a well logger in the region, and was told that she has cor pulmonale although we do not have echo confirmation of that. She lives in an assisted living center. Patient has had multiple admissions for COPD exacerbation. While she was in her bed she developed what she described as severe shortness of breath and could not catch her breath. This was associated with pinpoint fleeting type chest pain and when her symptoms did not improve she came to the [facility] ER. In addition she had an episode of diarrhea this morning. She complained of diaphoresis, but it is very warm and her apartment. She denied any nausea or vomiting but did complain of shortness of breath during this time. An initial EKG was performed which showed normal sinus rhythm with newly discovered anterior and inferior T wave inversion. Her previous EKG showed normal sinus rhythm with baseline right bundle branch block. Her initial troponin is 0.10. She is currently stable, chest pain-free, and in no acute distress. At no time when she hypertensive. [] Past Medical History Allergies/Adverse Reactions: Allergies sulfasalazine Allergy (Verified 07/27/18 12:15) Hives aspartame [From Nutrasweet Aspartame] Adverse Reaction (Verified 07/27/18 12:15) light headedness and nausea light headedness and nausea citric acid Adverse Reaction (Verified 07/27/18 12:15) Mucosal lesions docusate sodium [From Colace] Adverse Reaction (Verified 07/27/18 12:15) dizzy, lightheaded, hallucinations dizzy, light headed, hallucinations fluoxetine Adverse Reaction (Verified 07/27/18 12:15) made me mean made me mean nicotine polacrilex [From Nicorette] Adverse Reaction (Verified 07/27/18 12:15) dizzy spells, light headedness dizzy spells, light headedness phenytoin sodium [From Dilantin] Adverse Reaction (Verified 07/27/18 12:15) made me feel drugged up used for scleroderma, made me feel drugged up phenytoin sodium extended [From Dilantin] Adverse Reaction (Verified 07/27/18 12:15) made me feel drugged up Home Medications: Ambulatory Orders Medication Instructions Recorded Alendronate Sodium [Fosamax] 70 mg PO TH 02/12/15 Fluticasone/Salmeterol [Advair 1 puff INHALATION BID 02/12/15 250/50 Mcg Diskus] Polyethylene Glycol 3350 [Miralax] 17 gm PO DAILY PRN 11/06/15 Ipratropium/Albuterol Sulfate 3 ml INHALATION Q4H 03/28/16 [Duoneb] Albuterol Aerosols [Ventolin 2.5 mg INHALATION Q2H PRN PRN #0 07/01/16 Aerosols] vial.neb. Prednisone 10 mg PO DAILY #26 tab.ds.pk 07/01/16 Senna [Senokot] 1 tablet PO DAILY tablet 07/01/16 Acetaminophen [Tylenol Extra 500 mg PO Q4H PRN PRN 07/27/18 Strength] Acidophilus 1 tab BID 07/27/18 Azithromycin 250 mg DAILY 07/27/18 Benzonatate [Tessalon Perle] 100 mg PO TID PRN PRN 07/27/18 Budesonide Aerosol [Pulmicort 0.5 mg INHALATION BID 07/27/18 Aerosol] Buspirone HCl 5 mg BID 07/27/18 Calcium Carb/Magnesium Hydrox 1 each PO TID 07/27/18 [Antacid Chewable Tablet] Calcium Carb/Vitamin D 1 tab PO BIDCM 07/27/18 [Caltrate-600 With Vit D Tab] Guaifenesin [Mucinex] 600 mg PO BID 07/27/18 Hydrocodone-Acetamin 5-325 mg 1 tab TID PRN 07/27/18 Loratadine 10 mg DAILY 07/27/18 Lorazepam [Ativan] 1 mg PO BID 07/27/18 Lorazepam [Ativan] 1 mg PO BID PRN PRN 07/27/18 Melatonin 10 mg PO QHS 07/27/18 Mucinex 400 mg TID PRN 07/27/18 Multivitamins,Therapeutic 1 tablet PO DAILY 07/27/18 [Multivitamin] Omeprazole 40 mg DAILY 07/27/18 Paroxetine HCl 20 mg DAILY 07/27/18 Past Medical History (Chronic Problems): Chronic Problems Osteoporosis (Chronic) Neuropathy (Chronic) Restless leg syndrome (Chronic) Moderate malnutrition (Chronic) Panic attacks (Chronic) Generalized anxiety disorder (Chronic) COPD emphysema severe (Chronic) Tobacco abuse (Chronic) Underweight (Chronic) PTSD (post-traumatic stress disorder) (Chronic) Obsessive compulsive disorder (Chronic) Noncompliance (Chronic) Surgical History: noncontributory Psychiatric History: No pertinent psych hx CELL ROOM OPERATOR History: No pertinent CELL ROOM OPERATOR history - *Family History Maternal History Items: - - Scoliosis and possible bipolar disorder Paternal History Items: Asthma, COPD, Diabetes, Dementia, Heart Disease, Hypertension Sibling History Items: Asthma Offspring History Items: Asthma Smoking Status: Current every day smoker Review of Systems - Review of Systems General: Denies: Fever, Night Sweats, Fatigue Cardiovascular: Reports: Chest Discomfort at Rest, Shortness of Breath at Rest, Shortness of Breath with Exertion Respiratory: Denies: Cough, Sputum Production, Hemoptysis Gastrointestinal: Denies: Hematemesis, Hematochezia, Melena Genitourinary: Denies: Dysuria, Hematuria Subjectve: Patient laying in bed, no acute distress. Objective: Vital Signs Temp Pulse Resp BP Pulse Ox 98.8 F 92 13 91/59 L 97 07/27/18 12:08 07/27/18 12:56 07/27/18 12:56 07/27/18 12:15 07/27/18 12:56 Oxygen Flow Rate (L/min) 3 Oxygen Delivery Method Nasal Cannula Weight: 93 lb Body Mass Index (BMI) 15.0 General: Awake, Alert, Oriented x 3 HEENT: PERRL, EOMI, Sclera Non Icteric Neck: Supple, Good ROM, No Lymph Node Enlargement Lungs: Clear to auscultation Cardiovascular: Regular Rhythm, Normal S1, Normal S2, No Rubs, No Gallops Murmur Murmur: Grade 2/6, Holosystolic Vascular: No Carotid Bruits, Normal Femoral Pulses, Normal Radial Pulses, Normal Dorsalis Pedal Pulse, Normal Posterior Tibial Pulses Abdomen: Bowel Sounds Present, Soft, Non Tender, No HSM, No Organomegaly Extremities: No Cyanosis, No Clubbing, No edema Neurological: No Focal Motor or Sensory Deficit 07/27/18 12:45: WBC 8.9, RBC 4.61, Hgb 13.7, Hct 42.0, MCV 91.1, MCH 29.7, MCHC 32.6, RDW 13.6, RDW Differential 44.9 H, Plt Count 232, MPV 10.5, Immature Gran % (Auto) 0.100, Neut % (Auto) 82.8 H, Lymph % (Auto) 13.0 L, [place] % (Auto) 3.6, Eos % (Auto) 0.2, Baso % (Auto) 0.3, Absolute Neuts (auto) 7.4, Total Counted Not Reportable 07/27/18 12:45: Sodium 138, Potassium 4.2, Chloride 101, Carbon Dioxide 35.0 H, Anion Gap 2 L, BUN 5 L, Creatinine 0.68, Est GFR (MDRD) Af Amer 119, Est GFR (MDRD) Non-Af 98, BUN/Creatinine Ratio 7.4 L, Glucose 142 H, Calcium 9.3 07/27/18 12:45: Troponin I 0.103 H 07/27/18 12:45: APTT 32.5 Rhythm: EKG: ECHO: Stress Test: Cardiac Cath: PCI: CT Surgery: Holter monitor: EPS: PPM: CXR: Chest CT Scan: Assessment/Plan 1. Abnormal EKG: The patient presents with significant air hunger, shortness of breath, superimposed on recent event of diarrhea, with new onset anterior inferior T wave inversion. She supposedly comes with a diagnosis of cor pulmonale given her by Dr. Katz, but she cannot recall ever having an echocardiogram let alone a catheterization. We have no records of this in our computer. She is on no anticoagulation despite her diagnosis of cor pulmonale. She is on chronic O2 therapy, but unfortunately continues to smoke. In addition she had a very small troponin release with her first initial troponin. She is currently asymptomatic. It is possible the patient may have significant coronary occlusive disease especially given her severe amount of smoking and known COPD at a young age. I recommended that we have an urgent echocardiogram done at the bedside to dete juan if she has any wall motion and normalities consistent with either anterior ischemia and/or Takostubos cardiomyopathy to explain her EKG changes. She had no overt anginal symptoms but simply pinpoint fleeting type chest pain while she was under significant amount of anxiety. In addition recommend loading her with 4 baby aspirin, 180 of Brilinta given her abnormal troponin and abnormal EKG followed by 90 mg p.o. twice daily, as well as 4000 units of IV heparin followed by an IV heparin drip. Once the echocardiogram is completed we will determine whether the patient requires a left and right heart catheterization versus a stress test. Beta-adamaris therapy may be somewhat problematic given her severe COPD. Patient may benefit from calcium channel blockers to assist with coronary vasodilatation such as Cardizem CD 120 mg p.o. daily. Would recommend ruling out for myocardial infarction and admitting her to the hospital under the hospitalist service. 2. Tobacco cessation: I had a long and thorough discussion regarding the patient's tobacco use and strongly encouraged her to discontinue all tobacco products. Fortunately she has the sense not to smoke with her oxygen on. 3. Hyperlipidemia: Recommend obtaining a fasting lipid profile and treating her LDL to below 70. 4. Thank you very much for the opportunity to participate in the cardiac care of your patient. Consultation time took place between 145 and 2:30 PM. Code Visit Inpatient E&M: 33490 Subs Hosp L2
--- NOTE | 2018-07-27 14:29 | ECHOD_ITS ---
Reason For Study: Abn EKG Procedure This was a 2D Doppler, Color Flow transthoracic echocardiogram. The study was technically difficult. Exam performed portable in ED. Left Ventricle Normal size and thickness. The estimated ejection fraction is 65 %. Normal diastology for age. No regional wall motion abnormalities noted. Right Ventricle Normal size and thickness. Normal systolic function. Atria Normal left atrium. Normal right atrium. Normal atrial septum. Mitral Valve The mitral valve is structurally normal. No prolapse or stenosis seen. Tricuspid Valve Normal tricuspid valve. Mild (1+) tricuspid valve insufficiency. Right ventricular systolic pressure estimated to be 34 mmHg. Aortic Valve Trisinus/trileaflet aortic valve. Normal aortic valve. Pulmonic Valve Normal pulmonic valve. Great Vessels Normal aortic root. Normal arch. Normal inferior vena cava. Inferior vena cava collapse with sniff. Pericardium/Pleural Trivial pericardial effusion. There are no echocardiographic indications of cardiac tamponade. MMode/2D Measurements & Calculations LVIDd: 3.8 cm IVSd: 0.53 cm Ao root diam: 2.7 cm LVIDs: 2.0 cm LVPWd: 0.69 cm LA dimension: 2.0 cm FS: 48.0 % Doppler Measurements & Calculations MV E max bambi: 56.3 cm/sec Ao V2 max: 113.9 cm/sec LV V1 max: 89.0 cm/sec MV A max bambi: 52.2 cm/sec Ao max P.2 mmHg LV V1 max P.2 mmHg MV E/A: 1.1 PA V2 max: 98.0 cm/sec TR max bambi: 269.5 cm/sec TR max P.3 mmHg Interpretation Summary The estimated ejection fraction is 65 %. Normal diastology for age. Mild (1+) tricuspid valve insufficiency. Right ventricular systolic pressure estimated to be 34 mmHg. Trivial pericardial effusion. There are no echocardiographic indications of cardiac tamponade. No evidence of cor pulmonale. There is no comparison study available. Ordering Physician: Jace English Referring Physician: Ruddy Zapata Performed By: Kellen Daley RDCS
[2018-07-27] MEDS: TICAGRELOR 90 MG TABLET 180 MG PO (14:43)
[2018-07-27] MEDS: Heparin 10,000 UNITS/10 ML Vial 4000 UNITS IV (14:43)
[2018-07-27 14:48] LABS: Lactic Acid 1.9 mmol/L (0.4-2.0)
--- NOTE | 2018-07-27 14:55 | ED.RN ---
Extensive education given on the medications administered, the testing done in ED and the possible testing to up done after admission. Pt appeared anxious before and during conversation but after lengthy conversation pt seems more calm and relaxed. Pt given water and a snack per patient request after permission from Dr. Trujillo was given.
--- NOTE | 2018-07-27 15:08 | ED.DCSUM_ITS ---
History of Present Illness Chief Complaint: Anxiety Narrative: This is a 48-year-old female with a history of COPD, on continuous oxygen at baseline, presenting from assisted living with an anxiety attack. She states that she has a history of anxiety and panic attacks and felt very anxious as afternoon, developing chest pain as well. She states that the chest pain was brief, no specific locality, just diffuse. Her main symptom was anxiety and a feeling of panic which she states felt similar to her usual anxiety attack. She took an Ativan and her symptoms nearly resolved prior to arrival. - Past Medical History (1) Abnormal EKG Status: Acute (2) Chest pain Status: Acute (3) Non-STEMI (non-ST elevated myocardial infarction) Status: Acute (4) Shortness of breath Status: Acute (5) Thrush Status: Acute (6) COPD emphysema severe Status: Chronic (7) Generalized anxiety disorder Status: Chronic (8) Moderate malnutrition Status: Chronic (9) Neuropathy Status: Chronic (10) Noncompliance Status: Chronic (11) Obsessive compulsive disorder Status: Chronic (12) Osteoporosis Status: Chronic (13) PTSD (post-traumatic stress disorder) Status: Chronic (14) Panic attacks Status: Chronic (15) Restless leg syndrome Status: Chronic (16) Tobacco abuse Status: Chronic (17) Underweight Status: Chronic Past Medical History - Allergies and Home Meds Allergies/Adverse Reactions: Allergies sulfasalazine Allergy (Verified 07/27/18 12:15) Hives aspartame [From Nutrasweet Aspartame] Adverse Reaction (Verified 07/27/18 12:15) light headedness and nausea light headedness and nausea citric acid Adverse Reaction (Verified 07/27/18 12:15) Mucosal lesions docusate sodium [From Colace] Adverse Reaction (Verified 07/27/18 12:15) dizzy, lightheaded, hallucinations dizzy, light headed, hallucinations fluoxetine Adverse Reaction (Verified 07/27/18 12:15) made me mean made me mean nicotine polacrilex [From Nicorette] Adverse Reaction (Verified 07/27/18 12:15) dizzy spells, light headedness dizzy spells, light headedness phenytoin sodium [From Dilantin] Adverse Reaction (Verified 07/27/18 12:15) made me feel drugged up used for scleroderma, made me feel drugged up phenytoin sodium extended [From Dilantin] Adverse Reaction (Verified 07/27/18 12:15) made me feel drugged up Primary Care Physician: Ruddy Mari DO [Primary Care Provider] - Surgical History: noncontributory Smoking Status: Current every day smoker - Family History Maternal Family History: Reports: - - Scoliosis and possible bipolar disorder Paternal Family History: Reports: Asthma, COPD, Diabetes, Dementia, Heart Disease, Hypertension Sibling Family History: Reports: Asthma Offspring Family History: Reports: Asthma Review of Systems All systems negative except as indicated General: Reports: Malaise. Denies: Chills, Fever, Sweats Eyes: Denies: Visual changes - bilaterally, Diplopia ENT: Denies: Rhinorrhea, Sore throat Cardiovascular: Reports: Chest pain. Denies: Palpitations Respiratory: Reports: Dyspnea, Cough, Dyspnea on exertion Gastrointestinal: Denies: Abdominal pain, Nausea, Vomiting, Diarrhea, Melena, Hematochezia Genitourinary: Denies: Dysuria, Hematuria, Frequency Musculoskeletal: Denies: Back pain, Extremity Pain Skin: Denies: Rash, Wounds Neurological: Denies: Headache, Weakness, Numbness Psych: Reports: Anxiety. Denies: Depression, Suicidal thoughts, Suicidal ideations Hematologic: Denies: Easy bleeding Physical Exam Vital Signs/Narrative: Vital Signs Temp Pulse Resp BP Pulse Ox 07/27/18 14:30 93 17 95/71 97 07/27/18 14:00 98.7 F 94 17 104/62 97 07/27/18 13:30 93 18 102/72 96 07/27/18 13:15 91 17 88/68 L 95 07/27/18 13:00 96 19 H 92/64 96 07/27/18 12:56 92 13 97 07/27/18 12:15 89 20 H 91/59 L 98 07/27/18 12:08 98.8 F 99 22 H 88/78 L 96 Inital Vital Signs reviewed: Yes General: Well developed, Cachectic, Acute Distress Head: Normocephalic, Atraumatic Eyes: Perrl, EOMI ENT: Moist mucous membranes, No rhinorrhea Neck: Supple, Nontender Cardiovascular: Regular rate, Regular rhythm, No murmurs Respiratory: No distress, Chest nontender, Decreased Air Movement Abdomen: Soft, Nontender, Nondistended, Normal bowel sounds Back: Nontender, Normal Inspection Extremities: Nontender, No edema Skin: Normal color, No rash Neurological: Alert, Oriented x3, Cranial nerves II-XII grossly intact, Normal Strength, Normal Sensation Psychological: Normal affect, Normal Mood Diagnostic/Tx/Re-eval - Medical Decision Making EKG revealed a sinus rhythm with diffuse T wave inversion and slight ST elevation in aVR. Rate was 95. No QRS widening. It was changed from prior. Chest x-ray negative for acute process. CBC and chemistries reviewed. Creatinine normal. Troponin elevated at 0.110. She was treated with aspirin. I discussed the case with Dr. English who came down to the emergency department and performed a consultation. He recommended a heparin drip, Plavix, echocardiogram, and admission to the PCU. He will follow. She may undergo heart catheterization depending on ultrasound results. She re mained chest pain-free in the emergency department and vital signs remained within normal limits. I did consider pulmonary embolism however she has no clinical evidence of DVT and she states the pain was not pleuritic in nature. She is not hypoxic on her baseline amount of oxygen and we are treating her with a heparin drip so I did not want to risk another contrast load with the heart catheterization planned and therefore did not perform CT angiogram. At time of dictation, she is resting comfortably. - Critical Care Time Critical care time (excluding procedures): 30-74 minutes, Discussing w/Patient &/or Family/[employer], Discussing w/Consultants, Arranging Admission or Transfer, Performing Direct Patient Care at Bedside ED Disposition - Plan for ED Patient: Diagnosis: NSTEMI (non-ST elevated myocardial infarction) Referrals: Ruddy Mari DO [Primary Care Provider] -
--- NOTE | 2018-07-27 15:15 | CM.ED ---
Social Work Note Attempted to pt who was presently in with nursing staff. Reviewed pt's chart and it appears that she lives alone in a [facility] apartment in [place]. History of Home Care Waiver Services. Placed call to [facility] at [phone] and left a vm with her continuous pillowcase cutter, Giancarlo Parkinson, requesting a return phone call to verify pt's services. SW to continue to follow and assist with discharge planning. Antonina Alba, SANITARIAN AIDE, [place]
[2018-07-27 15:23] LABS: Cholesterol 234 mg/dL (200); High Density Lipoprotein 81 mg/dL; Triglycerides 116 mg/dL; Very Low Density Lipoprotein 23 mg/dL (5-40)
--- NOTE | 2018-07-27 15:52 | PCM.HP.STD ---
Problem List (1) COPD exacerbation Status: Chronic (2) Abnormal EKG Status: Acute (3) Chest pain Status: Acute (4) Non-STEMI (non-ST elevated myocardial infarction) Status: Acute (5) Shortness of breath Status: Acute (6) Thrush Status: Acute (7) COPD emphysema severe Status: Chronic (8) Generalized anxiety disorder Status: Chronic (9) Moderate malnutrition Status: Chronic (10) Neuropathy Status: Chronic (11) Noncompliance Status: Chronic (12) Obsessive compulsive disorder Status: Chronic (13) Osteoporosis Status: Chronic (14) PTSD (post-traumatic stress disorder) Status: Chronic (15) Panic attacks Status: Chronic (16) Restless leg syndrome Status: Chronic (17) Tobacco abuse Status: Chronic (18) Underweight Status: Chronic History of Present Illness Date of Admission: 07/27/18 Chief Complaint: Shortness of breath and chest pain The patient is a 48 year of with history of severe COPD/emphysema on 3 L of home oxygen at [facility] came to ED with anxiety attack this afternoon. Later on she also developed intermittent chest pain, diffuse over left side, most to right across ribs. She has severe shortness of breath even on minimal activity like dressing but he states she is not short of breath at rest. Shortness of breath got worse and last 1 or 2 weeks. She is not a good historian and currently also gets short of breath on conversation. [] In ED, her blood pressure was low 88/68, heart rate in 90s pulse ox 95% on 3 L of oxygen. EKG was done for chest pain and showed T inversion in V3 to V6 and inferior leads which was new since previous EKG of June 2016. Troponin is also elevated 0.103. Barrel Bander was consulted and is started on aspirin, loading dose of Brilinta, IV heparin drip with loading dose and a stat echo. She is also on multiple antianxiety/antidepression medications including Ativan, trazodone, paroxetine and buspirone. Past Medical History Past Medical History (Chronic Problems): Chronic Problems COPD exacerbation (Chronic) Osteoporosis (Chronic) Neuropathy (Chronic) Restless leg syndrome (Chronic) Moderate malnutrition (Chronic) Panic attacks (Chronic) Generalized anxiety disorder (Chronic) COPD emphysema severe (Chronic) Tobacco abuse (Chronic) Underweight (Chronic) PTSD (post-traumatic stress disorder) (Chronic) Obsessive compulsive disorder (Chronic) Noncompliance (Chronic) Allergies sulfasalazine Allergy (Verified 07/27/18 12:15) Hives aspartame [From Nutrasweet Aspartame] Adverse Reaction (Verified 07/27/18 12:15) light headedness and nausea light headedness and nausea citric acid Adverse Reaction (Verified 07/27/18 12:15) Mucosal lesions docusate sodium [From Colace] Adverse Reaction (Verified 07/27/18 12:15) dizzy, lightheaded, hallucinations dizzy, light headed, hallucinations fluoxetine Adverse Reaction (Verified 07/27/18 12:15) made me mean made me mean nicotine polacrilex [From Nicorette] Adverse Reaction (Verified 07/27/18 12:15) dizzy spells, light headedness dizzy spells, light headedness phenytoin sodium [From Dilantin] Adverse Reaction (Verified 07/27/18 12:15) made me feel drugged up used for scleroderma, made me feel drugged up phenytoin sodium extended [From Dilantin] Adverse Reaction (Verified 07/27/18 12:15) made me feel drugged up Home Medications: Ambulatory Orders Medication Instructions Recorded Ipratropium/Albuterol Sulfate 3 ml INHALATION 4X/DAY 03/28/16 [Duoneb] Budesonide Aerosol [Pulmicort 0.5 mg INHALATION BID 07/27/18 Aerosol] Calcium Carbonate [Calcium] 500 mg PO TID 07/27/18 Calcium Carbonate/Vitamin D3 1 tab PO BID 07/27/18 [Calcium 600-Vit D3 200 Tablet] Guaifenesin [Mucus Relief ER] 600 mg PO BID 07/27/18 Lactobacillus Acidophilus 1 each PO BID 07/27/18 [Acidophilus] Loratadine 10 mg PO DAILY 07/27/18 Lorazepam [Ativan] 1 mg PO BID 07/27/18 Melatonin 10 mg PO QHS 07/27/18 Multivitamins,Therapeutic 1 tablet PO DAILY 07/27/18 [Multivitamin] Omeprazole 40 mg PO DAILY 07/27/18 Paroxetine HCl 20 mg PO DAILY 07/27/18 Polyvinyl Alcohol [Artificial 15 ml OP 4X/DAY 07/27/18 Tears] Prednisone 10 mg PO DAILY 07/27/18 Senna [Senokot] 2 tablet PO BID 07/27/18 Trazodone HCl 25 mg PO QHS 07/27/18 busPIRone [Buspar] 7.5 mg PO BID 07/27/18 Surgical History: noncontributory Smoking Status: Current every day smoker - *Family History Maternal History Items: - - Scoliosis and possible bipolar disorder Paternal History Items: Asthma, COPD, Diabetes, Dementia, Heart Disease, Hypertension Sibling History Items: Asthma Offspring History Items: Asthma Review of Systems Constitutional: Reports: Fatigue, - - Very short of breath. Denies: Chills, Fever, Weight Change HEENT: Denies: Head Aches, Sinus Congestion, Sinus Drainage Cardiovascular: Reports: Chest Pain. Denies: Palpitations Respiratory: Reports: Cough, Shortness of breath at rest, Shortness of breath upon exertion. Denies: Sputum production Gastrointestinal: Denies: Abdominal Pain, Nausea, Vomiting Genitourinary: Denies: Dysuria, Frequency, Hematuria, Hesitancy Musculoskeletal: Denies: Joint Pain, Joint Tenderness Skin: Denies: Rash, Wounds Neurological: Denies: Numbness, Tingling, Focal weakness Psychiatric: Reports: Anxiety, Depression - Is. Denies: Homicidal Ideations, Suicidal Ideations Hematologic/ Lymphatic: Denies: Easy Bruising, Easy Bleeding VTE Information - Inpt Only VTE Present on Admission: No VTE Mechan Device Prophylaxis: SCD's VTE Pharm Prophylaxis ordered?: Yes Patient Problems: Active and Suspected Problems Chest pain (Acute) Abnormal EKG (Acute) Non-STEMI (non-ST elevated myocardial infarction) (Acute) - Physical Exam General: Oriented x3, Cooperative, Lethargic HEENT: Atraumatic, PERRLA, EOMI, Normocephalic Oral: Dry Mucosa Neck: Supple, No JVD, Negative Carotid Bruits Lungs: Diminished - Air entry severely diminished., Rhonchi, Short of Breath, Tachypneic, Using Accessory Muscles Cardiovascular: Regular rate, Regular Rhythm, Normal S1, Normal S2, No murmurs Abdomen: Bowel Sounds Present, Soft, Non Tender, Non-Distended Extremities: No edema, Capillary Refill Less than 3 Seconds Skin: No rashes, No breakdown Musculoskeletal: No Tenderness to Palpation of Joints or Extremities, Arthritic Changes, Muscle Wasting Lymphatic: Cervical Adenopathy Neurological: Cranial nerves II-XII grossly intact, Deep Tendon Reflexes 2+/4 and Symmetrical, Neuro grossly intact Psych/Mental Status: Anxious, Depressed Vital Signs Temp Pulse Resp BP Pulse Ox 98.2 F 93 16 104/62 96 07/27/18 15:48 07/27/18 15:48 07/27/18 15:48 07/27/18 15:48 07/27/18 15:48 Oxygen Flow Rate (L/min) 3 Oxygen Delivery Method Nasal Cannula Weight: 93 lb Body Mass Index (BMI) 15.0 Laboratory Tests Past 24 Hrs 07/27/18 07/27/18 07/27/18 12:45 12:45 12:45 WBC 8.9 RBC 4.61 Hgb 13.7 Hct 42.0 MCV 91.1 MCH 29.7 MCHC 32.6 RDW 13.6 RDW Differential 44.9 H Plt Count 232 MPV 10.5 Immature Gran % (Auto) 0.100 Neut % (Auto) 82.8 H Lymph % (Auto) 13.0 L [place] % (Auto) 3.6 Eos % (Auto) 0.2 Baso % (Auto) 0.3 Absolute Neuts (auto) 7.4 Absolute Lymphs (auto) 1.16 Total Counted Not Reportable APTT Sodium 138 Potassium 4.2 Chloride 101 Carbon Dioxide 35.0 H Anion Gap 2 L BUN 5 L Creatinine 0.68 Estim Creat Clear Calc 65.91 Est GFR (MDRD) Af Amer 119 Est GFR (MDRD) Non-Af 98 BUN/Creatinine Ratio 7.4 L Glucose 142 H Lactic Acid Calcium 9.3 Troponin I 0.103 H Triglycerides Cholesterol LDL Cholesterol VLDL Cholesterol HDL Cholesterol 07/27/18 07/27/18 07/27/18 12:45 12:45 13:45 WBC RBC Hgb Hct MCV MCH MCHC RDW RDW Differential Plt Count MPV Immature Gran % (Auto) Neut % (Auto) Lymph % (Auto) [place] % (Auto) Eos % (Auto) Baso % (Auto) Absolute Neuts (auto) Absolute Lymphs (auto) Total Counted APTT 32.5 Sodium Potassium Chloride Carbon Dioxide Anion Gap BUN Creatinine Estim Creat Clear Calc Est GFR (MDRD) Af Amer Est GFR (MDRD) Non-Af BUN/Creatinine Ratio Glucose Lactic Acid 1.9 Calcium Troponin I Triglycerides 116 Cholesterol 234 H LDL Cholesterol 130 VLDL Cholesterol 23 HDL Cholesterol 81 Assessment/Plan All Active Problems Chest pain (Acute) Abnormal EKG (Acute) Non-STEMI (non-ST elevated myocardial infarction) (Acute) Shortness of breath (Acute) Thrush (Acute) Hyponatremia (Resolved) The patient is a 48 year of with history of severe COPD/emphysema on 3 L of home oxygen at [facility] living [place] came to ED with anxiety attack this afternoon. Later on she also developed intermittent chest pain, diffuse over left side, most to right across ribs. She has severe shortness of breath even on minimal activity like dressing but he states she is not short of breath at rest. Shortness of breath got worse and last 1 or 2 weeks. She is not a good historian and currently also gets short of breath on conversation. [] In ED, her blood pressure was low 88/68, heart rate in 90s pulse ox 95% on 3 L of oxygen. EKG was done for chest pain and showed T inversion in V3 to V6 and inferior leads which was new since previous EKG of June 2016. Troponin is also elevated 0.103. Barrel Bander was consulted and is started on aspirin, loading dose of Brilinta, IV heparin drip with loading dose and a stat echo. She is also on multiple antianxiety/antidepression medications including Ativan, trazodone, paroxetine and buspirone. 1. Atypical chest pain possible non-STEMI/Takotsubo syndrome: The patient is being admitted in the stepdown. Patient is on IV heparin drip, aspirin, Brilinta. As patient in COPD exacerbation, she is not candidate for beta-adamaris at this time but may be considered later on. No KAMERON or arm elevated secondary to mild hypotension in the ER but may be considered later on 2. COPD exacerbation: Patient has severe emphysema as mentioned above. On DuoNeb, albuterol as needed, Solu-Medrol, doxycycline, incentive spirometry and chest physiotherapy. BiPAP as needed. ABG ordered. Patient had previously VBG. Because of multiple QT prolonging antidepressant drugs, will not recommend Zithromax. 3. Severe protein calorie malnutrition secondary to advanced COPD: Patient BMI is 14. Mounter S[employer] consult. 4. Chronic smoker/nicotine dependence: Patient started smoking at the age of 16 with a pack of cigarettes per day. Smoked 3 packs/day from 199903/18/2016 and currently about half a pack a day. On nicotine patch. Smoking cessation counseling done. 5. Multiple anxiety and depression conditions including anxiety/panic attack, PTSD, obsessive-compulsive disorder: Home antidepressant medications continued. Laboratory Results 07/27/18 12:45: WBC 8.9, RBC 4.61, Hgb 13.7, Hct 42.0, MCV 91.1, MCH 29.7, MCHC 32.6, RDW 13.6, RDW Differential 44.9 H, Plt Count 232, MPV 10.5, Immature Gran % (Auto) 0.100, Neut % (Auto) 82.8 H, Lymph % (Auto) 13.0 L, [place] % (Auto) 3.6, Eos % (Auto) 0.2, Baso % (Auto) 0.3, Absolute Neuts (auto) 7.4, Absolute Lymphs (auto) 1.16, Total Counted Not Reportable 07/27/18 12:45: Sodium 138, Potassium 4.2, Chloride 101, Carbon Dioxide 35.0 H, Anion Gap 2 L, BUN 5 L, Creatinine 0.68, Estim Creat Clear Calc 65.91, Est GFR (MDRD) Af Amer 119, Est GFR (MDRD) Non-Af 98, BUN/Creatinine Ratio 7.4 L, Glucose 142 H, Calcium 9.3 07/27/18 12:45: Troponin I 0.103 H 07/27/18 12:45: APTT 32.5 07/27/18 12:45: Triglycerides 116, Cholesterol 234 H, LDL Cholesterol 130, VLDL Cholesterol 23, HDL Cholesterol 81 07/27/18 13:45: Lactic Acid 1.9 Clinical Impression(s) from Imaging Studies Chest X-Ray 07/27/18 12:33 IMPRESSION: Stable examination. Marked degree of hyperinflation as well as decreased bilateral bronchovascular markings suggestive of severe emphysema with possible bullous formation in both lungs. Code Visit Inpatient E&M: 13642 Init Hosp L3
--- NOTE | 2018-07-27 15:55 | HP.PCM_ITS ---
Problem List (1) COPD exacerbation Status: Chronic (2) Abnormal EKG Status: Acute (3) Chest pain Status: Acute (4) Non-STEMI (non-ST elevated myocardial infarction) Status: Acute (5) Shortness of breath Status: Acute (6) Thrush Status: Acute (7) COPD emphysema severe Status: Chronic (8) Generalized anxiety disorder Status: Chronic (9) Moderate malnutrition Status: Chronic (10) Neuropathy Status: Chronic (11) Noncompliance Status: Chronic (12) Obsessive compulsive disorder Status: Chronic (13) Osteoporosis Status: Chronic (14) PTSD (post-traumatic stress disorder) Status: Chronic (15) Panic attacks Status: Chronic (16) Restless leg syndrome Status: Chronic (17) Tobacco abuse Status: Chronic (18) Underweight Status: Chronic History of Present Illness Date of Admission: 07/27/18 Chief Complaint: Shortness of breath and chest pain The patient is a 48 year of with history of severe COPD/emphysema on 3 L of home oxygen at [facility] came to ED with anxiety attack this afternoon. Later on she also developed intermittent chest pain, diffuse over left side, most to right across ribs. She has severe shortness of breath even on minimal activity like dressing but he states she is not short of breath at rest. Shortness of breath got worse and last 1 or 2 weeks. She is not a good historian and currently also gets short of breath on conversation. [] In ED, her blood pressure was low 88/68, heart rate in 90s pulse ox 95% on 3 L of oxygen. EKG was done for chest pain and showed T inversion in V3 to V6 and inferior leads which was new since previous EKG of June 2016. Troponin is also elevated 0.103. Graduate Fellow was consulted and is started on aspirin, loading dose of Brilinta, IV heparin drip with loading dose and a stat echo. She is also on multiple antianxiety/antidepression medications including Ativan, trazodone, paroxetine and buspirone. Past Medical History Past Medical History (Chronic Problems): Chronic Problems COPD exacerbation (Chronic) Osteoporosis (Chronic) Neuropathy (Chronic) Restless leg syndrome (Chronic) Moderate malnutrition (Chronic) Panic attacks (Chronic) Generalized anxiety disorder (Chronic) COPD emphysema severe (Chronic) Tobacco abuse (Chronic) Underweight (Chronic) PTSD (post-traumatic stress disorder) (Chronic) Obsessive compulsive disorder (Chronic) Noncompliance (Chronic) Allergies sulfasalazine Allergy (Verified 07/27/18 12:15) Hives aspartame [From Nutrasweet Aspartame] Adverse Reaction (Verified 07/27/18 12:15) light headedness and nausea light headedness and nausea citric acid Adverse Reaction (Verified 07/27/18 12:15) Mucosal lesions docusate sodium [From Colace] Adverse Reaction (Verified 07/27/18 12:15) dizzy, lightheaded, hallucinations dizzy, light headed, hallucinations fluoxetine Adverse Reaction (Verified 07/27/18 12:15) made me mean made me mean nicotine polacrilex [From Nicorette] Adverse Reaction (Verified 07/27/18 12:15) dizzy spells, light headedness dizzy spells, light headedness phenytoin sodium [From Dilantin] Adverse Reaction (Verified 07/27/18 12:15) made me feel drugged up used for scleroderma, made me feel drugged up phenytoin sodium extended [From Dilantin] Adverse Reaction (Verified 07/27/18 12:15) made me feel drugged up Home Medications: Ambulatory Orders Medication Instructions Recorded Ipratropium/Albuterol Sulfate 3 ml INHALATION 4X/DAY 03/28/16 [Duoneb] Budesonide Aerosol [Pulmicort 0.5 mg INHALATION BID 07/27/18 Aerosol] Calcium Carbonate [Calcium] 500 mg PO TID 07/27/18 Calcium Carbonate/Vitamin D3 1 tab PO BID 07/27/18 [Calcium 600-Vit D3 200 Tablet] Guaifenesin [Mucus Relief ER] 600 mg PO BID 07/27/18 Lactobacillus Acidophilus 1 each PO BID 07/27/18 [Acidophilus] Loratadine 10 mg PO DAILY 07/27/18 Lorazepam [Ativan] 1 mg PO BID 07/27/18 Melatonin 10 mg PO QHS 07/27/18 Multivitamins,Therapeutic 1 tablet PO DAILY 07/27/18 [Multivitamin] Omeprazole 40 mg PO DAILY 07/27/18 Paroxetine HCl 20 mg PO DAILY 07/27/18 Polyvinyl Alcohol [Artificial 15 ml OP 4X/DAY 07/27/18 Tears] Prednisone 10 mg PO DAILY 07/27/18 Senna [Senokot] 2 tablet PO BID 07/27/18 Trazodone HCl 25 mg PO QHS 07/27/18 busPIRone [Buspar] 7.5 mg PO BID 07/27/18 Surgical History: noncontributory Smoking Status: Current every day smoker - *Family History Maternal History Items: - - Scoliosis and possible bipolar disorder Paternal History Items: Asthma, COPD, Diabetes, Dementia, Heart Disease, Hypertension Sibling History Items: Asthma Offspring History Items: Asthma Review of Systems Constitutional: Reports: Fatigue, - - Very short of breath. Denies: Chills, Fever, Weight Change HEENT: Denies: Head Aches, Sinus Congestion, Sinus Drainage Cardiovascular: Reports: Chest Pain. Denies: Palpitations Respiratory: Reports: Cough, Shortness of breath at rest, Shortness of breath upon exertion. Denies: Sputum production Gastrointestinal: Denies: Abdominal Pain, Nausea, Vomiting Genitourinary: Denies: Dysuria, Frequency, Hematuria, Hesitancy Musculoskeletal: Denies: Joint Pain, Joint Tenderness Skin: Denies: Rash, Wounds Neurological: Denies: Numbness, Tingling, Focal weakness Psychiatric: Reports: Anxiety, Depression - Is. Denies: Homicidal Ideations, Suicidal Ideations Hematologic/ Lymphatic: Denies: Easy Bruising, Easy Bleeding VTE Information - Inpt Only VTE Present on Admission: No VTE Mechan Device Prophylaxis: SCD's VTE Pharm Prophylaxis ordered?: Yes Patient Problems: Active and Suspected Problems Chest pain (Acute) Abnormal EKG (Acute) Non-STEMI (non-ST elevated myocardial infarction) (Acute) - Physical Exam General: Oriented x3, Cooperative, Lethargic HEENT: Atraumatic, PERRLA, EOMI, Normocephalic Oral: Dry Mucosa Neck: Supple, No JVD, Negative Carotid Bruits Lungs: Diminished - Air entry severely diminished., Rhonchi, Short of Breath, T achypneic, Using Accessory Muscles Cardiovascular: Regular rate, Regular Rhythm, Normal S1, Normal S2, No murmurs Abdomen: Bowel Sounds Present, Soft, Non Tender, Non-Distended Extremities: No edema, Capillary Refill Less than 3 Seconds Skin: No rashes, No breakdown Musculoskeletal: No Tenderness to Palpation of Joints or Extremities, Arthritic Changes, Muscle Wasting Lymphatic: Cervical Adenopathy Neurological: Cranial nerves II-XII grossly intact, Deep Tendon Reflexes 2+/4 and Symmetrical, Neuro grossly intact Psych/Mental Status: Anxious, Depressed Vital Signs Temp Pulse Resp BP Pulse Ox 98.2 F 93 16 104/62 96 07/27/18 15:48 07/27/18 15:48 07/27/18 15:48 07/27/18 15:48 07/27/18 15:48 Oxygen Flow Rate (L/min) 3 Oxygen Delivery Method Nasal Cannula Weight: 93 lb Body Mass Index (BMI) 15.0 Laboratory Tests Past 24 Hrs 07/27/18 07/27/18 07/27/18 12:45 12:45 12:45 WBC 8.9 RBC 4.61 Hgb 13.7 Hct 42.0 MCV 91.1 MCH 29.7 MCHC 32.6 RDW 13.6 RDW Differential 44.9 H Plt Count 232 MPV 10.5 Immature Gran % (Auto) 0.100 Neut % (Auto) 82.8 H Lymph % (Auto) 13.0 L [place] % (Auto) 3.6 Eos % (Auto) 0.2 Baso % (Auto) 0.3 Absolute Neuts (auto) 7.4 Absolute Lymphs (auto) 1.16 Total Counted Not Reportable APTT Sodium 138 Potassium 4.2 Chloride 101 Carbon Dioxide 35.0 H Anion Gap 2 L BUN 5 L Creatinine 0.68 Estim Creat Clear Calc 65.91 Est GFR (MDRD) Af Amer 119 Est GFR (MDRD) Non-Af 98 BUN/Creatinine Ratio 7.4 L Glucose 142 H Lactic Acid Calcium 9.3 Troponin I 0.103 H Triglycerides Cholesterol LDL Cholesterol VLDL Cholesterol HDL Cholesterol 07/27/18 07/27/18 07/27/18 12:45 12:45 13:45 WBC RBC Hgb Hct MCV MCH MCHC RDW RDW Differential Plt Count MPV Immature Gran % (Auto) Neut % (Auto) Lymph % (Auto) [place] % (Auto) Eos % (Auto) Baso % (Auto) Absolute Neuts (auto) Absolute Lymphs (auto) Total Counted APTT 32.5 Sodium Potassium Chloride Carbon Dioxide Anion Gap BUN Creatinine Estim Creat Clear Calc Est GFR (MDRD) Af Amer Est GFR (MDRD) Non-Af BUN/Creatinine Ratio Glucose Lactic Acid 1.9 Calcium Troponin I Triglycerides 116 Cholesterol 234 H LDL Cholesterol 130 VLDL Cholesterol 23 HDL Cholesterol 81 Assessment/Plan All Active Problems Chest pain (Acute) Abnormal EKG (Acute) Non-STEMI (non-ST elevated myocardial infarction) (Acute) Shortness of breath (Acute) Thrush (Acute) Hyponatremia (Resolved) The patient is a 48 year of with history of severe COPD/emphysema on 3 L of home oxygen at [facility] [place] came to ED with anxiety attack this afternoon. Later on she also developed intermittent chest pain, diffuse over left side, most to right across ribs. She has severe shortness of breath even on minimal activity like dressing but he states she is not short of breath at rest. Shortness of breath got worse and last 1 or 2 weeks. She is not a good historian and currently also gets short of breath on conversation. [] In ED, her blood pressure was low 88/68, heart rate in 90s pulse ox 95% on 3 L of oxygen. EKG was done for chest pain and showed T inversion in V3 to V6 and inferior leads which was new since previous EKG of June 2016. Troponin is also elevated 0.103. Graduate Fellow was consulted and is started on aspirin, loading dose of Brilinta, IV heparin drip with loading dose and a stat echo. She is also on multiple antianxiety/antidepression medications including Ativan, trazodone, paroxetine and buspirone. 1. Atypical chest pain possible non-STEMI/Takotsubo syndrome: The patient is be ing admitted in the stepdown. Patient is on IV heparin drip, aspirin, Brilinta. As patient in COPD exacerbation, she is not candidate for beta-adamaris at this time but may be considered later on. No KAMERON or arm elevated secondary to mild hypotension in the ER but may be considered later on 2. COPD exacerbation: Patient has severe emphysema as mentioned above. On DuoNeb, albuterol as needed, Solu-Medrol, doxycycline, incentive spirometry and chest physiotherapy. BiPAP as needed. ABG ordered. Patient had previously VBG. Because of multiple QT prolonging antidepressant drugs, will not recommend Zithromax. 3. Severe protein calorie malnutrition secondary to advanced COPD: Patient BMI is 14. Molding Line Assistant consult. 4. Chronic smoker/nicotine dependence: Patient started smoking at the age of 16 with a pack of cigarettes per day. Smoked 3 packs/day from 199903/18/2016 and currently about half a pack a day. On nicotine patch. Smoking cessation counseling done. 5. Multiple anxiety and depression conditions including anxiety/panic attack, PTSD, obsessive-compulsive disorder: Home antidepressant medications continued. Laboratory Results 07/27/18 12:45: WBC 8.9, RBC 4.61, Hgb 13.7, Hct 42.0, MCV 91.1, MCH 29.7, MCHC 32.6, RDW 13.6, RDW Differential 44.9 H, Plt Count 232, MPV 10.5, Immature Gran % (Auto) 0.100, Neut % (Auto) 82.8 H, Lymph % (Auto) 13.0 L, [place] % (Auto) 3.6, Eos % (Auto) 0.2, Baso % (Auto) 0.3, Absolute Neuts (auto) 7.4, Absolute Lymphs (auto) 1.16, Total Counted Not Reportable 07/27/18 12:45: Sodium 138, Potassium 4.2, Chloride 101, Carbon Dioxide 35.0 H, Anion Gap 2 L, BUN 5 L, Creatinine 0.68, Estim Creat Clear Calc 65.91, Est GFR (MDRD) Af Amer 119, Est GFR (MDRD) Non-Af 98, BUN/Creatinine Ratio 7.4 L, Gluc ose 142 H, Calcium 9.3 07/27/18 12:45: Troponin I 0.103 H 07/27/18 12:45: APTT 32.5 07/27/18 12:45: Triglycerides 116, Cholesterol 234 H, LDL Cholesterol 130, VLDL Cholesterol 23, HDL Cholesterol 81 07/27/18 13:45: Lactic Acid 1.9 Clinical Impression(s) from Imaging Studies Chest X-Ray 07/27/18 12:33 IMPRESSION: Stable examination. Marked degree of hyperinflation as well as decreased bilateral bronchovascular markings suggestive of severe emphysema with possible bullous formation in both lungs. Code Visit Inpatient E&M: 10059 Init Hosp L3
--- NOTE | 2018-07-27 16:08 | EKG12_ITS ---
Test Reason : Blood Pressure : / mmHG Vent. Rate : 095 BPM Atrial Rate : 095 BPM P-R Int : 116 ms QRS Dur : 080 ms QT Int : 420 ms P-R-T Axes : 084 087 251 degrees QTc Int : 527 ms Normal sinus rhythm Indeterminate axis Pulmonary disease pattern ST & Marked T wave abnormality, consider anterolateral ischemia Prolonged QT Abnormal ECG Confirmed by LEBRON MINAYA ([id number]), department editor MICHEL KINNEY ([id number] on 07/30/2018 4:46:28 PM Referred By: Juan Skaggs Confirmed By:LEBRON MINAYA
[2018-07-27 16:45] LABS: Allen Test POS; Base Excess 2 mmol/L (-2 to +2); Bicarbonate 26.5 mmol/L (22-26); Blood Gas Specimen Type ART; O2 Delivery Device Nasal Can; PO2 44 mmHG (75-100); SITE R Radial; SO2 80 % (95-99); Time Given 1638; Total Carbon Dioxide 28 mmol/L; pCO2 41.7 mmHg (35-45); pH 7.41 (7.35-7.45)
[2018-07-27] MEDS: 0.9% Normal Saline 1,000 ML 100 ML IV (16:48)
[2018-07-27] MEDS: LORazepam 1 MG Tablet PO ×2 (16:49→21:50)
--- NOTE | 2018-07-27 16:50 | CPS ---
1450 Dr Skaggs made aware of ABG result and informed that based off result sample may have been mixed. Pt pulse ox on [address] lpm was 97%. Dr Skaggs made aware and was asked if he would like pt re-stuck for ABG. Dr Skaggs stated no need to re-stick pt.
[2018-07-27] MEDS: Calcium Carb/Vitamin D 1 TABLET Tablet PO (17:43)
[2018-07-27] MEDS: oxyCODONE 5 MG Tablet PO (19:06)
--- NOTE | 2018-07-27 20:15 | CPS ---
Patient stated she does not wear a Bipap/Cpap at night. She does not want to wear one at all because it scares her and she can't breathe on it.
[2018-07-27] MEDS: busPIRone 5 MG Tablet PO (21:50)
[2018-07-27] MEDS: Doxycycline 100 MG CAPSULE PO (21:50)
[2018-07-27] MEDS: MELATONIN 10 MG TABLET PO (21:50)
[2018-07-27] MEDS: TICAGRELOR 90 MG TABLET PO (21:50)
[2018-07-27] MEDS: Atorvastatin Calcium 40 MG Tablet PO (21:50)
[2018-07-27] MEDS: guaiFENesin 600 MG Tablet PO (21:50)
[2018-07-27 22:04] LABS: Partial Thromboplast Time > 250.0 Seconds (24.1-36.2)
[2018-07-27] MEDS: BENZOCAINE/MENTHOL 1 LOZENGE 2 LOZENGE MUCOUS MEM (23:27)
[2018-07-28] VITALS (22 sets, daily range): BP systolic 95–129; BP diastolic 54–75; PULSE 74–105; RESP 16–24; TEMP 36.6–37; O2SAT 94–100
[2018-07-28] MEDS: 0.9% Normal Saline 1,000 ML 999 ML IV (00:31)
[2018-07-28] MEDS: LORazepam 1 MG Tablet PO ×4 (02:59→21:57)
[2018-07-28] MEDS: Ipratropium/Albuterol Sulfate 3 ML AMPUL.NEB INHALATION ×6 (03:13→22:23)
[2018-07-28] MEDS: 0.9% Normal Saline 1,000 ML 100 ML IV ×3 (03:47→22:07)
[2018-07-28 04:27] LABS: Hemoglobin 11.7 g/dl (12.0-15.0); Mean Corp Hgb Conc 32.5 g/gl (32-36); Mean Corpuscular Hgb 29.3 pg (27.0-32.0); Mean Corpuscular Volume 90.2 fL (81-99); Platelet Count 218 K/mm3 (150-450); RBC Distribution Width CV 13.2 % (11.6-14.6); Red Blood Count 3.99 M/mm3 (4.2-5.4); White Blood Count 11.4 K/mm3 (4.4-11.0)
[2018-07-28 04:36] LABS: Scan Indicated on CBC? Y/N NO
[2018-07-28 04:41] LABS: Partial Thromboplast Time 59.4 Seconds (24.1-36.2)
[2018-07-28 05:06] LABS: ALB/GLOB Ratio 1.4 RATIO (0.9-2.4); AST(SGOT) 33 U/L (15-37); Alanine Aminotransfer ALT/SGPT 35 U/L (13-56); Albumin, Serum 3.4 g/dL (3.2-5.0); Alkaline Phosphatase 34 U/L (45-117); Anion Gap 3 (5-15); BUN 4 mg/dL (7-18); BUN/Creat Ratio 9.5 RATIO (10-20); Calcium,Total 7.7 mg/dL (8.5-10.1); Chloride 110 mmol/L (98-107); Creatinine, Serum 0.42 mg/dL (0.55-1.02); EST Glomerular Filtration Rate 169 mL/min (>60); Est Glom Filt Rate - Afr Amer 204 mL/min (>60); Estimated Creatinine Clearance 100.98 ml/min; Globulin 2.4 g/dL (2.2-4.2); Glucose 130 mg/dL (74-106); Potassium 3.9 mmol/L (3.5-5.1); Protein, Total 5.8 g/dL (6.4-8.2); Sodium Level 142 mmol/L (136-145)
[2018-07-28 08:25] LABS: Free T3 1.7 pg/mL (2.18-3.98); T4 Free Direct 1.09 ng/dL (0.76-1.46)
--- NOTE | 2018-07-28 09:14 | PCM.PN.CARD ---
Subjectve: Patient doing better this morning, still complains of some minor chest pain but much improved. Telemetry overnight showed normal sinus rhythm with rare PACs. EKG shows normal sinus rhythm with anterior lateral T wave inversion. Echocardiogram yesterday showed intact LV function without evidence of Takostubos cardiomyopathy. Peak troponin of 0.123. Trending downwards. Trivial anterior pericardial effusion without evidence of collapse. Objective: Vital Signs Temp Pulse Resp BP Pulse Ox 98 F 87 22 H 100/56 L 100 07/28/18 08:35 07/28/18 08:35 07/28/18 08:35 07/28/18 08:35 07/28/18 08:35 Oxygen Flow Rate (L/min) 3 Oxygen Delivery Method Nasal Cannula Weight: 88 lb Body Mass Index (BMI) 14.1 Intake and Output for Last 24 Hours 07/26/18 07/27/18 07/28/18 23:59 23:59 23:59 Intake Total 217 / 217 1119.4 / 1119.4 Output Total 100 / 100 900 / 900 Balance 117 / 117 219.4 / 219.4 General: Awake, Alert, Oriented x 3 HEENT: PERRL, EOMI, Sclera Non Icteric Neck: Supple, Good ROM, No Lymph Node Enlargement Lungs: Clear to auscultation Cardiovascular: Regular Rhythm, Normal S1, Normal S2, No Murmurs, No Rubs, No Gallops Vascular: No Carotid Bruits, Normal Femoral Pulses, Normal Radial Pulses, Normal Dorsalis Pedal Pulse, Normal Posterior Tibial Pulses Abdomen: Bowel Sounds Present, Soft, Non Tender, No HSM, No Organomegaly Extremities: No Cyanosis, No Clubbing, No edema Neurological: No Focal Motor or Sensory Deficit 07/27/18 12:45: WBC 8.9, RBC 4.61, Hgb 13.7, Hct 42.0, MCV 91.1, MCH 29.7, MCHC 32.6, RDW 13.6, RDW Differential 44.9 H, Plt Count 232, MPV 10.5, Immature Gran % (Auto) 0.100, Neut % (Auto) 82.8 H, Lymph % (Auto) 13.0 L, [place] % (Auto) 3.6, Eos % (Auto) 0.2, Baso % (Auto) 0.3, Absolute Neuts (auto) 7.4, Total Counted Not Reportable 04/12/19 12:45: Sodium 138, Potassium 4.2, Chloride 101, Carbon Dioxide 35.0 H, Anion Gap 2 L, BUN 5 L, Creatinine 0.68, Est GFR (MDRD) Af Amer 119, Est GFR (MDRD) Non-Af 98, BUN/Creatinine Ratio 7.4 L, Glucose 142 H, Calcium 9.3 07/27/18 12:45: Troponin I 0.103 H 07/27/18 12:45: APTT 32.5 07/27/18 12:45: Triglycerides 116, Cholesterol 234 H, LDL Cholesterol 130, VLDL Cholesterol 23, HDL Cholesterol 81 07/27/18 13:45: Lactic Acid 1.9 07/27/18 16:39: pH 7.41, Bicarbonate Actual 26.5 H, POC Total CO2 28, Base Excess 2, O2 Saturation 80 L, ABG pCO2 41.7, ABG pO2 44 L, Jcarlos Test POS 07/27/18 17:55: Troponin I 0.123 H 07/27/18 20:25: APTT > 250.0 H* 07/27/18 20:25: Troponin I 0.094 H 07/28/18 03:58: WBC 11.4 H, RBC 3.99 L, Hgb 11.7 L, Hct 36.0 L, MCV 90.2, MCH 29.3, MCHC 32.5, RDW 13.2, RDW Differential 43.0, Plt Count 218, MPV 11.0 07/28/18 03:58: Sodium 142, Potassium 3.9, Chloride 110 H, Carbon Dioxide 29.0, Anion Gap 3 L, BUN 4 L, Creatinine 0.42 L, Est GFR (MDRD) Af Amer 204, Est GFR (MDRD) Non-Af 169, BUN/Creatinine Ratio 9.5 L, Glucose 130 H, Calcium 7.7 L, Total Bilirubin 0.40 07/28/18 03:58: APTT 59.4 H Rhythm: EKG: ECHO: Stress Test: Cardiac Cath: PCI: CT Surgery: Holter monitor: EPS: PPM: CXR: Chest CT Scan: Medical Necessity - Tobacco Use Smoking Status: Current every day smoker Assessment/Plan 1. Abnormal EKG: The patient presents with significant air hunger, shortness of breath, superimposed on recent event of diarrhea, with new onset anterior inferior T wave inversion. She supposedly comes with a diagnosis of cor pulmonale given her by Dr. Katz, but she cannot recall ever having an echocardiogram let alone a catheterization. We have no records of this in our computer. She is on no anticoagulation despite her diagnosis of cor pulmonale. She is on chronic O2 therapy, but unfortunately continues to smoke. In addition she had a very small troponin release with her first initial troponin. She is currently asymptomatic. It is possible the patient may have significant coronary occlusive disease especially given her severe amount of smoking and known COPD at a young age. Stat bedside echocardiogram showed intact LV function, no evidence of cardiomyopathy, and a trivial amount of anterior pericardial effusion without evidence of pericardial tamponade. Patient was placed on IV heparin drip and loaded with aspirin and Brilinta. Patient's peak troponin was 0.123, and is trending downwards. She had no overt anginal symptoms but simply pinpoint fleeting type chest pain while she was under significant amount of anxiety. Given her cardiac history we will proceed with left and right heart catheterization on Monday morning. Recommend continuing her IV heparin drip to keep her PTT between 50 and 70 given her ongoing EKG changesBeta-adamaris therapy may be somewhat problematic given her severe COPD. Given her tachycardia, and severe emphysema, recommend starting her on Cardizem CD 120 mg p.o. daily and titrating up from there to keep her heart rate less than 100. 2. Tobacco cessation: I had a long and thorough discussion regarding the patient's tobacco use and strongly encouraged her to discontinue all tobacco products. Fortunately she has the sense not to smoke with her oxygen on. Patient did not tolerate the nicotine patch or the nicotine gum, and has tried Wellbutrin in the past with minimal improvement. She was offered Chantix and then it was removed for unknown reasons. Possibly due to psychiatric issues. 3. Hyperlipidemia: Recommend obtaining a fasting lipid profile and treating her LDL to below 70. 4. Thank you very much for the opportunity to participate in the cardiac care of your patient. Discussed with Dr. Cardenas. Code Visit Inpatient E&M: 95890 Subs Hosp L2
[2018-07-28] MEDS: busPIRone 5 MG Tablet PO ×2 (09:30→21:56)
[2018-07-28] MEDS: Doxycycline 100 MG CAPSULE PO ×2 (09:30→21:57)
[2018-07-28] MEDS: Pantoprazole Sodium 40 MG Tablet PO (09:30)
[2018-07-28] MEDS: Paroxetine 20 MG Tablet PO (09:30)
[2018-07-28] MEDS: Senna Tablet 1 TABLET PO (09:30)
[2018-07-28] MEDS: Multivitamins,Therapeutic Tablet 1 TABLET PO (09:31)
[2018-07-28] MEDS: guaiFENesin 600 MG Tablet PO ×2 (09:31→21:56)
[2018-07-28] MEDS: Calcium Carb/Vitamin D 1 TABLET Tablet PO ×2 (09:31→16:46)
[2018-07-28] MEDS: Aspirin E.C. 81 MG Tablet PO (09:31)
[2018-07-28] MEDS: TICAGRELOR 90 MG TABLET PO ×2 (09:31→22:07)
[2018-07-28 09:47] LABS: Partial Thromboplast Time 55.7 Seconds (24.1-36.2)
[2018-07-28] MEDS: dilTIAZem CD 120 MG Capsule PO (10:51)
--- NOTE | 2018-07-28 11:10 | NURSING ---
Student nurse charting reviewed.
--- NOTE | 2018-07-28 12:13 | PCM.PN.HOSP ---
Patient Problems: Active and Suspected Problems Chest pain (Acute) Abnormal EKG (Acute) Non-STEMI (non-ST elevated myocardial infarction) (Acute) Subjective: Patient was admitted with a complaint of an anxiety attack as well as intermittent chest pain which is diffuse over the left side and moved to her right and across her ribs. She also had associated severe shortness of breath and has a history of chronic respiratory failure due to COPD on 3 L of oxygen at home. She was admitted from assisted living facility where EKG done showed T wave inversions in leads V3 to V6 in the inferior leads as well which were new. Troponin was elevated at 0.103. She has been managed for non-STEMI. Patient seen and examined this morning. She looks very anxious but states she has not had any chest pain overnight. She denies any shortness of breath or palpitations, dizziness, diarrhea or vomiting. Patient did complain of severe anxiety which is not new and wanted medication to help with anxiety. Labs and vitals reviewed. Vitals/I&O's: Vital Signs Temp Pulse Resp BP Pulse Ox 98.2 F 104 H 20 H 129/75 H 99 07/28/18 10:26 07/28/18 11:08 07/28/18 11:08 07/28/18 10:26 07/28/18 11:08 Oxygen Flow Rate (L/min) 4 Oxygen Delivery Method Nasal Cannula Weight: 88 lb Body Mass Index (BMI) 14.1 Intake and Output for Last 24 Hours 07/26/18 07/27/18 07/28/18 23:59 23:59 23:59 Intake Total 217 / 217 1119.4 / 1119.4 Output Total 100 / 100 900 / 900 Balance 117 / 117 219.4 / 219.4 General: Alert, Oriented x3, Cooperative, No apparent distress HEENT: Atraumatic, PERRLA, EOMI, Normocephalic Oral: Moist Mucosa Neck: Supple, No JVD, Negative Carotid Bruits Lungs: Clear to auscultation, Normal air movement, - - on 3L of oxygen, which is her baseline Cardiovascular: Regular rate, Regular Rhythm, Normal S1, Normal S2, No murmurs Abdomen: Bowel Sounds Present, Soft, Non Tender, Non-Distended, No Hepato-splenomegaly Extremities: No clubbing, No cyanosis, No edema, Capillary Refill Less than 3 Seconds Skin: No rashes, No breakdown Musculoskeletal: No Tenderness to Palpation of Joints or Extremities Lymphatic: No Cervical, Supraclavicular, or Inguinal Adenopathy Neurological: Cranial nerves II-XII grossly intact, Neuro grossly intact, Motor Exam 5/5 strength throughout Psych/Mental Status: Anxious, Alert and oriented to time, place, person, mood and affect Microbiology Past 72 Hours 07/27/18 16:38 Mucosa - Nasopharyngeal Respiratory Panel (PCR) - Final Laboratory Results 07/27/18 12:45: WBC 8.9, RBC 4.61, Hgb 13.7, Hct 42.0, MCV 91.1, MCH 29.7, MCHC 32.6, RDW 13.6, RDW Differential 44.9 H, Plt Count 232, MPV 10.5, Immature Gran % (Auto) 0.100, Neut % (Auto) 82.8 H, Lymph % (Auto) 13.0 L, [place] % (Auto) 3.6, Eos % (Auto) 0.2, Baso % (Auto) 0.3, Absolute Neuts (auto) 7.4, Absolute Lymphs (auto) 1.16, Total Counted Not Reportable 07/27/18 12:45: Sodium 138, Potassium 4.2, Chloride 101, Carbon Dioxide 35.0 H, Anion Gap 2 L, BUN 5 L, Creatinine 0.68, Estim Creat Clear Calc 65.91, Est GFR (MDRD) Af Amer 119, Est GFR (MDRD) Non-Af 98, BUN/Creatinine Ratio 7.4 L, Glucose 142 H, Calcium 9.3 07/27/18 12:45: Troponin I 0.103 H 07/27/18 12:45: APTT 32.5 07/27/18 12:45: Triglycerides 116, Cholesterol 234 H, LDL Cholesterol 130, VLDL Cholesterol 23, HDL Cholesterol 81 07/27/18 13:45: Lactic Acid 1.9 07/27/18 16:39: Specimen Type ART, Sample Site R Radial, pH 7.41, Bicarbonate Actual 26.5 H, POC Total CO2 28, Base Excess 2, O2 Saturation 80 L, ABG pCO2 41.7, ABG pO2 44 L, Jcarlos Test POS, O2 Delivery Device Nasal Can, Liter Flow 3.0, Blood Gas Notified Whom VINCENT W[place], Blood Gas Notified Time 1638 07/27/18 17:55: Troponin I 0.123 H 07/27/18 20:25: APTT > 250.0 H* 07/27/18 20:25: Troponin I 0.094 H 07/28/18 03:58: WBC 11.4 H, RBC 3.99 L, Hgb 11.7 L, Hct 36.0 L, MCV 90.2, MCH 29.3, MCHC 32.5, RDW 13.2, RDW Differential 43.0, Plt Count 218, MPV 11.0 07/28/18 03:58: Sodium 142, Potassium 3.9, Chloride 110 H, Carbon Dioxide 29.0, Anion Gap 3 L, BUN 4 L, Creatinine 0.42 L, Estim Creat Clear Calc 100.98, Est GFR (MDRD) Af Amer 204, Est GFR (MDRD) Non-Af 169, BUN/Creatinine Ratio 9.5 L, Glucose 130 H, Calcium 7.7 L, Total Bilirubin 0.40, AST 33, ALT 35, Alkaline Phosphatase 34 L, Total Protein 5.8 L, Albumin 3.4, Globulin 2.4, Albumin/Globulin Ratio 1.4, TSH 0.10 L 07/28/18 03:58: APTT 59.4 H 07/28/18 03:58: Free T4 1.09, Free T3 pg/dL 1.7 L 07/28/18 09:30: APTT 55.7 H Diagnostic Data Chest X-Ray 07/27/18 12:33 IMPRESSION: Stable examination. Marked degree of hyperinflation as well as decreased bilateral bronchovascular markings suggestive of severe emphysema with possible bullous formation in both lungs. Electronically Signed: Jameson Navarro, at 12:51 EDT , Service support , Current Medications Acetaminophen (Tylenol) 650 mg PO Q6H PRN PRN PRN Reason: Mild Pain (scale 0-3)/T>100.7 Hydrocodone Bitart/Acetaminophen ([place] 5mg-325mg) 1 tablet PO TID PRN PRN Reason: PAIN Albuterol Sulfate (Ventolin Aerosols) 2.5 mg INHALATION Q2H PRN PRN PRN Reason: SHORTNESS OF BREATH Albuterol/Ipratropium (Duoneb) 3 ml INHALATION Q4H.RT [facility] Last Admin: 07/28/18 11:08 Dose: 3 ml Aspirin (Ecotrin) 81 mg PO DAILY@0800 [facility] Last Admin: 07/28/18 09:31 Dose: 81 mg Atorvastatin Calcium (Lipitor) 40 mg PO QHS [facility] Last Admin: 07/27/18 21:50 Dose: 40 mg Benzonatate (Tessalon Perle) 100 mg PO TID PRN PRN PRN Reason: COUGH Buspirone HCl (Buspar) 5 mg PO BID [facility] Last Admin: 07/28/18 09:30 Dose: 5 mg Calcium/Vitamin D (Os-Phillip 500mg + D) [facility] Last Admin: 07/28/18 09:31 Dose: 1 tablet Diltiazem HCl (Cardizem Cd) 120 mg PO DAILY [facility] Last Admin: 07/28/18 10:51 Dose: 120 mg Doxycycline Monohydrate (Doxycycline) 100 mg PO BID [facility] Stop: 08/01/18 22:01 Last Admin: 07/28/18 09:30 Dose: 100 mg Guaifenesin (Mucinex) 600 mg PO BID [facility] Last Admin: 07/28/18 09:31 Dose: 600 mg Heparin Sodium (Porcine) (Heparin Na) 0 unit IV UD PRN; Protocol Sodium Chloride () 500 mls @ 999 mls/hr IV .Q31M ONE Last Admin: 07/27/18 12:52 Dose: 999 mls/hr Heparin Sodium/Dextrose () 25,000 units in 250 mls @ 10 mls/hr IV .Q25H [facility]; Protocol Last Admin: 07/27/18 14:09 Dose: 7 mls/hr Sodium Chloride () 1,000 mls @ 100 mls/hr IV .Q10H [facility] Last Admin: 07/28/18 03:47 Dose: 100 mls/hr Loratadine (Claritin) 10 mg PO DAILY PRN PRN Reason: NASAL CONGESTATION Lorazepam (Ativan) 1 mg PO BID PRN PRN PRN Reason: ANXIETY Last Admin: 07/28/18 02:59 Dose: 1 mg Lorazepam (Ativan) 1 mg PO BID [facility] Last Admin: 07/28/18 09:31 Dose: 1 mg Melatonin (Melatonin) 10 mg PO QHS [facility] Last Admin: 07/27/18 21:50 Dose: 10 mg Methylprednisolone (Solu-Medrol) 40 mg IV Q8 [facility] Last Admin: 07/28/18 06:48 Dose: 40 mg Multivitamins (Multivitamin) 1 tablet PO DAILY@0800 [facility] Last Admin: 07/28/18 09:31 Dose: 1 tablet Nitroglycerin (Nitrostat) 0.4 mg SUBLINGUAL Q5M PRN PRN Reason: CHEST PAIN Nutritional Formula (Lactose Free) (Ensure Enlive) 120 ml PO 4X/DAY [facility] Last Admin: 07/28/18 09:28 Dose: 120 ml Oxycodone HCl (Oxyir) 5 mg PO Q4H PRN PRN PRN Reason: Moderate Pain (pain scale 4-5) Last Admin: 07/27/18 19:06 Dose: 5 mg Pantoprazole Sodium (Protonix) 40 mg PO DAILY [facility] Last Admin: 07/28/18 09:30 Dose: 40 mg Paroxetine HCl (Paxil) 20 mg PO DAILY [facility] Last Admin: 07/28/18 09:30 Dose: 20 mg Polyethylene Glycol (Miralax) 17 gm PO DAILY PRN PRN Reason: Constipation Senna (Senokot) 1 tablet PO DAILY [facility] Last Admin: 07/28/18 09:30 Dose: 1 tablet Sodium Chloride () 5 - 15 ml IV UD PRN PRN Reason: SALINE FLUSH Throat Lozenges (Cepacol Sore Throat Lozenge) 2 lozenge MUCOUS MEM Q2H PRN PRN PRN Reason: SORE THROAT Last Admin: 07/27/18 23:27 Dose: 2 lozenge Ticagrelor (Brilinta) 90 mg PO BID [facility] Last Admin: 07/28/18 09:31 Dose: 90 mg Medical Necessity - Tobacco Use Smoking Status: Current every day smoker Assessment/Plan All Active Problems Chest pain (Acute) Abnormal EKG (Acute) Non-STEMI (non-ST elevated myocardial infarction) (Acute) Shortness of breath (Acute) Thrush (Acute) Hyponatremia (Resolved) 1. NSTEMI chest pain didnt recur overnight CKG showed T wave inversions in leads V3-6 and inferior leads. troponin trended 0.103->0.123->0.094 on heparin drip, and received a loading dose of brilinta. currently on asprin, heparin and brilinta. to have cardiac cath Monday per cardiology 2D echo report pending started on cardizem for tachycardia, as beta adamaris might aggravate her COPD 2. COPD exacerbation: SOB has improved. on her baseline 3L of oxygen. Breathing treatments. On PO doxycycline. ABG done showed pH of 7.41 with PCO2 of 41 and PO2 of 44. on her baseline 3L of oxygen. 3. Nicotine dependence Still continues to smoke initially on oxygen. States she is now smokes about 10 cigarettes a day but smoked 3 packs a day up to 2067. States she is allergic to nicotine patch and nicotine gum. Counseled to stop smoking. Also states that she was told not to take Chantix but is not clear of the reason why. 4. severe anxiety: On Ativan 1 mg twice daily, paroxetine and trazodone as well as buspirone. 5. Severe protein calorie malnutrition: BMI is only 14. Nutrition consulted. DVT prophylaxis: On heparin drip. Code Visit Inpatient E&M: 51621 Subs Hosp L3
--- NOTE | 2018-07-28 12:20 | PN_ITS ---
Patient Problems: Active and Suspected Problems Chest pain (Acute) Abnormal EKG (Acute) Non-STEMI (non-ST elevated myocardial infarction) (Acute) Subjective: Patient was admitted with a complaint of an anxiety attack as well as intermittent chest pain which is diffuse over the left side and moved to her right and across her ribs. She also had associated severe shortness of breath and has a history of chronic respiratory failure due to COPD on 3 L of oxygen at home. She was admitted from assisted living facility where EKG done showed T wave inversions in leads V3 to V6 in the inferior leads as well which were new. Troponin was elevated at 0.103. She has been managed for non-STEMI. Patient seen and examined this morning. She looks very anxious but states she has not had any chest pain overnight. She denies any shortness of breath or palpitations, dizziness, diarrhea or vomiting. Patient did complain of severe anxiety which is not new and wanted medication to help with anxiety. Labs and vitals reviewed. Vitals/I&O's: Vital Signs Temp Pulse Resp BP Pulse Ox 98.2 F 104 H 20 H 129/75 H 99 07/28/18 10:26 07/28/18 11:08 07/28/18 11:08 07/28/18 10:26 07/28/18 11:08 Oxygen Flow Rate (L/min) 4 Oxygen Delivery Method Nasal Cannula Weight: 88 lb Body Mass Index (BMI) 14.1 Intake and Output for Last 24 Hours 07/26/18 07/27/18 07/28/18 23:59 23:59 23:59 Intake Total 217 / 217 1119.4 / 1119.4 Output Total 100 / 100 900 / 900 Balance 117 / 117 219.4 / 219.4 General: Alert, Oriented x3, Cooperative, No apparent distress HEENT: Atraumatic, PERRLA, EOMI, Normocephalic Oral: Moist Mucosa Neck: Supple, No JVD, Negative Carotid Bruits Lungs: Clear to auscultation, Normal air movement, - - on 3L of oxygen, which is her baseline Cardiovascular: Regular rate, Regular Rhythm, Normal S1, Normal S2, No murmurs Abdomen: Bowel Sounds Present, Soft, Non Tender, Non-Distended, No Hepato- splenomegaly Extremities: No clubbing, No cyanosis, No edema, Capillary Refill Less than 3 Seconds Skin: No rashes, No breakdown Musculoskeletal: No Tenderness to Palpation of Joints or Extremities Lymphatic: No Cervical, Supraclavicular, or Inguinal Adenopathy Neurological: Cranial nerves II-XII grossly intact, Neuro grossly intact, Motor Exam 5/5 strength throughout Psych/Mental Status: Anxious, Alert and oriented to time, place, person, mood and affect Microbiology Past 72 Hours 07/27/18 16:38 Mucosa - Nasopharyngeal Respiratory Panel (PCR) - Final Laboratory Results 07/27/18 12:45: WBC 8.9, RBC 4.61, Hgb 13.7, Hct 42.0, MCV 91.1, MCH 29.7, MCHC 32.6, RDW 13.6, RDW Differential 44.9 H, Plt Count 232, MPV 10.5, Immature Gran % (Auto) 0.100, Neut % (Auto) 82.8 H, Lymph % (Auto) 13.0 L, [place] % (Auto) 3.6, Eos % (Auto) 0.2, Baso % (Auto) 0.3, Absolute Neuts (auto) 7.4, Absolute Lymphs (auto) 1.16, Total Counted Not Reportable 07/27/18 12:45: Sodium 138, Potassium 4.2, Chloride 101, Carbon Dioxide 35.0 H, Anion Gap 2 L, BUN 5 L, Creatinine 0.68, Estim Creat Clear Calc 65.91, Est GFR (MDRD) Af Amer 119, Est GFR (MDRD) Non-Af 98, BUN/Creatinine Ratio 7.4 L, Glucose 142 H, Calcium 9.3 07/27/18 12:45: Troponin I 0.103 H 07/27/18 12:45: APTT 32.5 07/27/18 12:45: Triglycerides 116, Cholesterol 234 H, LDL Cholesterol 130, VLDL Cholesterol 23, HDL Cholesterol 81 07/27/18 13:45: Lactic Acid 1.9 07/27/18 16:39: Specimen Type ART, Sample Site R Radial, pH 7.41, Bicarbonate Actual 26.5 H, POC Total CO2 28, Base Excess 2, O2 Saturation 80 L, ABG pCO2 41.7, ABG pO2 44 L, Jcarlos Test POS, O2 Delivery Device Nasal Can, Liter Flow 3.0, Blood Gas Notified Whom VINCENT [place], Blood Gas Notified Time 1638 07/27/18 17:55: Troponin I 0.123 H 07/27/18 20:25: APTT > 250.0 H* 07/27/18 20:25: Troponin I 0.094 H 07/28/18 03:58: WBC 11.4 H, RBC 3.99 L, Hgb 11.7 L, Hct 36.0 L, MCV 90.2, MCH 29.3, MCHC 32.5, RDW 13.2, RDW Differential 43.0, Plt Count 218, MPV 11.0 07/28/18 03:58: Sodium 142, Potassium 3.9, Chloride 110 H, Carbon Dioxide 29.0, Anion Gap 3 L, BUN 4 L, Creatinine 0.42 L, Estim Creat Clear Calc 100.98, Est GFR (MDRD) Af Amer 204, Est GFR (MDRD) Non-Af 169, BUN/Creatinine Ratio 9.5 L, Glucose 130 H, Calcium 7.7 L, Total Bilirubin 0.40, AST 33, ALT 35, Alkaline Phosphatase 34 L, Total Protein 5.8 L, Albumin 3.4, Globulin 2.4, Albumin/Globulin Ratio 1.4, TSH 0.10 L 07/28/18 03:58: APTT 59.4 H 07/28/18 03:58: Free T4 1.09, Free T3 pg/dL 1.7 L 07/28/18 09:30: APTT 55.7 H Diagnostic Data Chest X-Ray 07/27/18 12:33 IMPRESSION: Stable examination. Marked degree of hyperinflation as well as decreased bilateral bronchovascular markings suggestive of severe emphysema with possible bullous formation in both lungs. Electronically Signed: Jameson Navarro, at 12:51 EDT , Service support , Current Medications Acetaminophen (Tylenol) 650 mg PO Q6H PRN PRN PRN Reason: Mild Pain (scale 0-3)/T>100.7 Hydrocodone Bitart/Acetaminophen ([place] 5mg-325mg) 1 tablet PO TID PRN PRN Reason: PAIN Albuterol Sulfate (Ventolin Aerosols) 2.5 mg INHALATION Q2H PRN PRN PRN Reason: SHORTNESS OF BREATH Albuterol/Ipratropium (Duoneb) 3 ml INHALATION Q4H.RT [facility] Last Admin: 07/28/18 11:08 Dose: 3 ml Aspirin (Ecotrin) 81 mg PO DAILY@0800 [facility] Last Admin: 07/28/18 09:31 Dose: 81 mg Atorvastatin Calcium (Lipitor) 40 mg PO QHS [facility] Last Admin: 07/27/18 21:50 Dose: 40 mg Benzonatate (Tessalon Perle) 100 mg PO TID PRN PRN PRN Reason: COUGH Buspirone HCl (Buspar) 5 mg PO BID [facility] Last Admin: 07/28/18 09:30 Dose: 5 mg Calcium/Vitamin D (Os-Phillip 500mg + D) [facility] Last Admin: 07/28/18 09:31 Dose: 1 tablet Diltiazem HCl (Cardizem Cd) 120 mg PO DAILY [facility] Last Admin: 07/28/18 10:51 Dose: 120 mg Doxycycline Monohydrate (Doxycycline) 100 mg PO BID [facility] Stop: 08/01/18 22:01 Last Admin: 07/28/18 09:30 Dose: 100 mg Guaifenesin (Mucinex) 600 mg PO BID [facility] Last Admin: 07/28/18 09:31 Dose: 600 mg Heparin Sodium (Porcine) (Heparin Na) 0 unit IV UD PRN; Protocol Sodium Chloride () 500 mls @ 999 mls/hr IV .Q31M ONE Last Admin: 07/27/18 12:52 Dose: 999 mls/hr Heparin Sodium/Dextrose () 25,000 units in 250 mls @ 10 mls/hr IV .Q25H [facility]; Protocol Last Admin: 07/27/18 14:09 Dose: 7 mls/hr Sodium Chloride () 1,000 mls @ 100 mls/hr IV .Q10H [facility] Last Admin: 07/28/18 03:47 Dose: 100 mls/hr Loratadine (Claritin) 10 mg PO DAILY PRN PRN Reason: NASAL CONGESTATION Lorazepam (Ativan) 1 mg PO BID PRN PRN PRN Reason: ANXIETY Last Admin: 07/28/18 02:59 Dose: 1 mg Lorazepam (Ativan) 1 mg PO BID [facility] Last Admin: 07/28/18 09:31 Dose: 1 mg Melatonin (Melatonin) 10 mg PO QHS [facility] Last Admin: 07/27/18 21:50 Dose: 10 mg Methylprednisolone (Solu-Medrol) 40 mg IV Q8 [facility] Last Admin: 07/28/18 06:48 Dose: 40 mg Multivitamins (Multivitamin) 1 tablet PO DAILY@0800 [facility] Last Admin: 07/28/18 09:31 Dose: 1 tablet Nitroglycerin (Nitrostat) 0.4 mg SUBLINGUAL Q5M PRN PRN Reason: CHEST PAIN Nutritional Formula (Lactose Free) (Ensure Enlive) 120 ml PO 4X/DAY [facility] Last Admin: 07/28/18 09:28 Dose: 120 ml Oxycodone HCl (Oxyir) 5 mg PO Q4H PRN PRN PRN Reason: Moderate Pain (pain scale 4-5) Last Admin: 07/27/18 19:06 Dose: 5 mg Pantoprazole Sodium (Protonix) 40 mg PO DAILY [facility] Last Admin: 07/28/18 09:30 Dose: 40 mg Paroxetine HCl (Paxil) 20 mg PO DAILY [facility] Last Admin: 07/28/18 09:30 Dose: 20 mg Polyethylene Glycol (Miralax) 17 gm PO DAILY PRN PRN Reason: Constipation Senna (Senokot) 1 tablet PO DAILY [facility] Last Admin: 07/28/18 09:30 Dose: 1 tablet Sodium Chloride () 5 - 15 ml IV UD PRN PRN Reason: SALINE FLUSH Throat Lozenges (Cepacol Sore Throat Lozenge) 2 lozenge MUCOUS MEM Q2H PRN PRN PRN Reason: SORE THROAT Last Admin: 07/27/18 23:27 Dose: 2 lozenge Ticagrelor (Brilinta) 90 mg PO BID [facility] Last Admin: 07/28/18 09:31 Dose: 90 mg Medical Necessity - Tobacco Use Smoking Status: Current every day smoker Assessment/Plan All Active Problems Chest pain (Acute) Abnormal EKG (Acute) Non-STEMI (non-ST elevated myocardial infarction) (Acute) Shortness of breath (Acute) Thrush (Acute) Hyponatremia (Resolved) 1. NSTEMI * chest pain didnt recur overnight * CKG showed T wave inversions in leads V3-6 and inferior leads. * troponin trended 0.103->0.123->0.094 * on heparin drip, and received a loading dose of brilinta. currently on asprin, heparin and brilinta. * to have cardiac cath Monday per cardiology * 2D echo report pending * started on cardizem for tachycardia, as beta adamaris might aggravate her COPD * 2. COPD exacerbation: * SOB has improved. on her baseline 3L of oxygen. * Breathing treatments. On PO doxycycline. * ABG done showed pH of 7.41 with PCO2 of 41 and PO2 of 44. * on her baseline 3L of oxygen. * 3. Nicotine dependence * Still continues to smoke initially on oxygen. States she is now smokes about 10 cigarettes a day but smoked 3 packs a day up to 2067. * States she is allergic to nicotine patch and nicotine gum. Counseled to stop smoking. * Also states that she was told not to take Chantix but is not clear of the reason why. * 4. severe anxiety: On Ativan 1 mg twice daily, paroxetine and trazodone as well as buspirone. 5. Severe protein calorie malnutrition: BMI is only 14. Nutrition consulted. DVT prophylaxis: On heparin drip. Code Visit Inpatient E&M: 57252 Subs Hosp L3
[2018-07-28] MEDS: Acetaminophen 325 MG Tablet 650 MG PO (14:39)
[2018-07-28 15:55] LABS: Partial Thromboplast Time 49.9 Seconds (24.1-36.2)
--- NOTE | 2018-07-28 16:26 | CM.UR ---
RN CM Assessment Met face to face with patient for initial transition planning/care coordination assessment. Introduced myself and my role. Verb understanding and agreement for assessment. Presentation: NSTEMI, COPD Thought she was having anxiety attack. PCP: Dr. Mari Specialists: None Preferred Pharmacy: [place] [facility] Insurance: [facility] Prescription Benefit: Yes. gets meds through [place]. LNOK: Aunbelkis Oneill Home: Lives in [facility] ADLs: Needs help with most ADLs and IADLs Transportation: requires w/c ambulance DME: Has o2, w/c, hospital bed, shower chair, handheld shower, grab bars, nebulizer. O2 is from [facility]. SNF/HHC: Used to have waiver through [place]. Previously been at [facility]. Passport/waiver event mgr: [facility] [phone] Advance Directives: States has both and DPOA is Aunbelkis Oneill JARED PLAN: Back to [place]
[2018-07-28] MEDS: Heparin Injection (Vial) 5,000 UNIT/ML VIAL IV (16:31)
[2018-07-28] MEDS: Albuterol 2.5 MG/3 ML VIAL.NEB. INHALATION ×2 (20:28→23:59)
--- NOTE | 2018-07-28 20:28 | CPS ---
PATIENT RECIEVED PRN TREATMENT DUE TO SOB.
[2018-07-28] MEDS: Atorvastatin Calcium 40 MG Tablet PO (21:56)
[2018-07-28] MEDS: MELATONIN 10 MG TABLET PO (21:56)
[2018-07-28] MEDS: Fluticasone 0.05% 1 SPRAY NASAL.SRY NASAL (21:57)
[2018-07-28] MEDS: traZODone 50 MG Tablet 25 MG PO (21:57)
[2018-07-28] MEDS: 0.9% NaCl Peripheral Flush Adult/Peds IV (22:08)
--- NOTE | 2018-07-28 23:04 | CPS ---
PATIENT REFUSED BIPAP AT TIME OF VISIT.
[2018-07-28 23:13] LABS: Partial Thromboplast Time 90.5 Seconds (24.1-36.2)
[2018-07-29] VITALS (20 sets, daily range): BP systolic 94–111; BP diastolic 61–81; PULSE 77–140; RESP 18–24; TEMP 36.2–36.7; O2SAT 94–99
--- NOTE | 2018-07-29 00:05 | CPS ---
patient requested prn treatment due to sob post return from bathroom.
[2018-07-29] MEDS: LORazepam 1 MG Tablet PO ×4 (02:01→21:06)
[2018-07-29] MEDS: Ipratropium/Albuterol Sulfate 3 ML AMPUL.NEB INHALATION ×6 (02:46→22:34)
[2018-07-29 06:29] LABS: Absolute Lymphocyte Count 0.28 X10^3/ul (0.83-4.51); Hematocrit 34.5 % (37-47); Hemoglobin 11.1 g/dl (12.0-15.0); Lymphocyte # 0.28 X10^3/ul (4.0); Lymphocyte % 2.4 % (19-41); Mean Corp Hgb Conc 32.2 g/gl (32-36); Mean Corpuscular Hgb 29.6 pg (27.0-32.0); Mean Platelet Vol. 11.2 fl (6.2-12.0); Monocyte# 0.27 X10^3/uL; Monocyte% 2.3 % (0-10); Neutrophil % 95.2 % (47-70); Platelet Count 185 K/mm3 (150-450); RBC Distribution Width CV 13.6 % (11.6-14.6); RBC Distribution Width SD 44.7 fl (35.1-43.9); Red Blood Count 3.75 M/mm3 (4.2-5.4); White Blood Count 11.6 K/mm3 (4.4-11.0)
[2018-07-29 06:41] LABS: Differential Indicated SCAN CRITERIA MET; POSITIVE COUNT NO; POSITIVE DIFFERENTIAL YES; POSITIVE MORPHOLOGY NO
[2018-07-29 06:47] LABS: Anion Gap 5 (5-15); BUN 3 mg/dL (7-18); BUN/Creat Ratio 7.2 RATIO (10-20); Calcium,Total 8.1 mg/dL (8.5-10.1); Chloride 112 mmol/L (98-107); Creatinine, Serum 0.41 mg/dL (0.55-1.02); EST Glomerular Filtration Rate 172 mL/min (>60); Est Glom Filt Rate - Afr Amer 208 mL/min (>60); Estimated Creatinine Clearance 103.44 ml/min; Glucose 136 mg/dL (74-106); Potassium 3.6 mmol/L (3.5-5.1); Sodium Level 146 mmol/L (136-145)
[2018-07-29 07:00] LABS: Differential Comment SCANNED
[2018-07-29 07:47] LABS: Partial Thromboplast Time 54.5 Seconds (24.1-36.2)
[2018-07-29] MEDS: Calcium Carb/Vitamin D 1 TABLET Tablet PO ×2 (09:39→16:40)
[2018-07-29] MEDS: Aspirin E.C. 81 MG Tablet PO (09:39)
[2018-07-29] MEDS: guaiFENesin 600 MG Tablet PO ×2 (09:39→21:08)
[2018-07-29] MEDS: Pantoprazole Sodium 40 MG Tablet PO (09:39)
[2018-07-29] MEDS: Senna Tablet 1 TABLET PO (09:39)
[2018-07-29] MEDS: Paroxetine 20 MG Tablet PO (09:39)
[2018-07-29] MEDS: Doxycycline 100 MG CAPSULE PO ×2 (09:39→21:07)
[2018-07-29] MEDS: dilTIAZem CD 120 MG Capsule PO (09:40)
[2018-07-29] MEDS: busPIRone 5 MG Tablet PO ×2 (09:40→21:07)
[2018-07-29] MEDS: Multivitamins,Therapeutic Tablet 1 TABLET PO (09:40)
[2018-07-29] MEDS: Fluticasone 0.05% 1 SPRAY NASAL.SRY NASAL ×2 (09:41→21:07)
--- NOTE | 2018-07-29 09:50 | PN.CARD_ITS ---
Subjectve: Patient continues to have difficulty with shortness of breath this morning, currently undergoing a coaching session for anxiety. Patient has had some difficulty laying down flat, but this is not a new thing. No chest pain or angina. Telemetry shows sinus tachycardia with inverted T waves. Left her catheterization pending tomorrow morning. Objective: Vital Signs Temp Pulse Resp BP Pulse Ox 97.8 F 101 H 20 H 101/63 96 07/29/18 08:00 07/29/18 08:00 07/29/18 08:00 07/29/18 08:00 07/29/18 08:00 Oxygen Flow Rate (L/min) 3 Oxygen Delivery Method Nasal Cannula Weight: 87 lb 15.995 oz Body Mass Index (BMI) 14.1 Intake and Output for Last 24 Hours 07/27/18 07/28/18 07/29/18 23:59 23:59 23:59 Intake Total 217 / 217 3939.4 / 3939.4 1488.9 / 1488.9 Output Total 100 / 100 2225 / 2225 1275 / 1275 Balance 117 / 117 1714.4 / 1714.4 213.9 / 213.9 General: Awake, Alert, Oriented x 3 HEENT: PERRL, EOMI, Sclera Non Icteric Neck: Supple, Good ROM, No Lymph Node Enlargement Lungs: Clear to auscultation, Diminished [place] Cardiovascular: Regular Rhythm, Normal S1, Normal S2, No Murmurs, No Rubs, No Gallops Vascular: No Carotid Bruits, Normal Femoral Pulses, Normal Radial Pulses, Normal Dorsalis Pedal Pulse, Normal Posterior Tibial Pulses Abdomen: Bowel Sounds Present, Soft, Non Tender, No HSM, No Organomegaly Extremities: No Cyanosis, No Clubbing, No edema Neurological: No Focal Motor or Sensory Deficit 07/28/18 09:30: APTT 55.7 H 07/28/18 15:33: APTT 49.9 H 07/28/18 22:40: APTT 90.5 H* 07/29/18 05:35: WBC 11.6 H, RBC 3.75 L, Hgb 11.1 L, Hct 34.5 L, MCV 92.0, MCH 29.6, MCHC 32.2, RDW 13.6, RDW Differential 44.7 H, Plt Count 185, MPV 11.2, Immature Gran % (Auto) 0.100, Neut % (Auto) 95.2 H, Lymph % (Auto) 2.4 L, [place] % (Auto) 2.3, Eos % (Auto) 0.0, Baso % (Auto) 0.0, Absolute Neuts (auto) 11.0 H, Total Counted Not Reportable 07/29/18 05:35: Sodium 146 H, Potassium 3.6, Chloride 112 H, Carbon Dioxide 29.0, Anion Gap 5, BUN 3 L, Creatinine 0.41 L, Est GFR (MDRD) Af Amer 208, Est GFR (MDRD) Non-Af 172, BUN/Creatinine Ratio 7.2 L, Glucose 136 H, Calcium 8.1 L 07/29/18 07:10: APTT 54.5 H Rhythm: EKG: ECHO: Stress Test: Cardiac Cath: PCI: CT Surgery: Holter monitor: EPS: PPM: CXR: Chest CT Scan: Medical Necessity - Tobacco Use Smoking Status: Current every day smoker Assessment/Plan 1. Abnormal EKG: The patient presents with significant air hunger, shortness of breath, superimposed on recent event of diarrhea, with new onset anterior inferior T wave inversion. She supposedly comes with a diagnosis of cor pulmona le given her by Dr. Katz, but she cannot recall ever having an echocardiogram let alone a catheterization. We have no records of this in our computer. She is on no anticoagulation despite her diagnosis of cor pulmonale. She is on chronic O2 therapy, but unfortunately continues to smoke. In addition she had a very small troponin release with her first initial troponin. She is currently asymptomatic. It is possible the patient may have significant coronary occlusive disease especially given her severe amount of smoking and known COPD at a young age. Stat bedside echocardiogram showed intact LV function, no evidence of cardiomyopathy, and a trivial amount of anterior pericardial effusion without evidence of pericardial tamponade. Patient was placed on IV heparin drip and loaded with aspirin and Brilinta. Patient's peak troponin was 0.123, and is trending downwards. She had no overt anginal symptoms but simply pinpoint fleeting type chest pain while she was under significant amount of anxiety. Given her cardiac history we will proceed with left and right heart catheterization on Monday morning. Recommend continuing her IV heparin drip to keep her PTT between 50 and 70 given her ongoing EKG changes. Beta-adamaris therapy may be somewhat problematic given her severe COPD. Given her tachycardia, and severe emphysema, we did start Cardizem CD 120 mg p.o. daily yesterday and would not recommend increasing it given her hypotension. I would not recommend amiodarone either as the patient has severe COPD and this make worsen her pulmonary function test and DLCO. 2. Tobacco cessation: I had a long and thorough discussion regarding the patient's tobacco use and strongly encouraged her to discontinue all tobacco products. Fortunately she has the sense not to smoke with her oxygen on. Patient did not tolerate the nicotine patch or the nicotine gum, and has tried Wellbutrin in the past with minimal improvement. She was offered Chantix and then it was removed for unknown reasons. Possibly due to psychiatric issues. 3. Hyperlipidemia: Recommend obtaining a fasting lipid profile and treating her LDL to below 70. 4. Thank you very much for the opportunity to participate in the cardiac care of your patient. Left and right heart cath tomorrow morning assuming the patient is able to lay down flat. Code Visit Inpatient E&M: 36118 Subs Hosp L2
[2018-07-29] MEDS: TICAGRELOR 90 MG TABLET PO ×2 (10:03→21:11)
[2018-07-29] MEDS: BENZOCAINE/MENTHOL 1 LOZENGE 2 LOZENGE MUCOUS MEM ×3 (10:37→20:06)
--- NOTE | 2018-07-29 11:37 | PCM.PN.HOSP ---
Patient Problems: Active and Suspected Problems Chest pain (Acute) Abnormal EKG (Acute) Non-STEMI (non-ST elevated myocardial infarction) (Acute) Subjective: Patient seen and examined. She still complains of severe anxiety. Chest pain did not recur overnight. She still does have shortness of breath which is her baseline. She denies any palpitations. Review of systems otherwise negative. Labs and vitals reviewed. Sodium noted to have trended up slightly at 146 with chloride also up to 112. She still remains mildly tachycardic and tachypneic. Vitals/I&O's: Vital Signs Temp Pulse Resp BP Pulse Ox 97.8 F 104 H 22 H 101/63 99 07/29/18 08:00 07/29/18 10:45 07/29/18 10:45 07/29/18 08:00 07/29/18 10:45 Oxygen Flow Rate (L/min) 4 Oxygen Delivery Method Nasal Cannula Weight: 87 lb 15.995 oz Body Mass Index (BMI) 14.1 Intake and Output for Last 24 Hours 07/27/18 07/28/18 07/29/18 23:59 23:59 23:59 Intake Total 217 / 217 3939.4 / 3939.4 1488.9 / 1488.9 Output Total 100 / 100 2225 / 2225 1275 / 1275 Balance 117 / 117 1714.4 / 1714.4 213.9 / 213.9 General: Alert, Oriented x3, Cooperative, No apparent distress HEENT: Atraumatic, PERRLA, EOMI, Normocephalic Oral: Moist Mucosa Neck: Supple, No JVD, Negative Carotid Bruits Lungs: Clear to auscultation, Normal air movement, - - on 3L of oxygen, which is her baseline Cardiovascular: Regular rate, Regular Rhythm, Normal S1, Normal S2, No murmurs Abdomen: Bowel Sounds Present, Soft, Non Tender, Non-Distended, No Hepato-splenomegaly Extremities: No clubbing, No cyanosis, No edema, Capillary Refill Less than 3 Seconds Skin: No rashes, No breakdown Musculoskeletal: No Tenderness to Palpation of Joints or Extremities Lymphatic: No Cervical, Supraclavicular, or Inguinal Adenopathy Neurological: Cranial nerves II-XII grossly intact, Neuro grossly intact, Motor Exam 5/5 strength throughout Psych/Mental Status: Anxious, Alert and oriented to time, place, person, mood and affect Microbiology Past 72 Hours 07/27/18 13:45 Blood Culture (Wb) #2 - Right Forearm Blood Culture - Preliminary No growth in 48 hours. 07/27/18 13:40 Blood Culture (Wb) #2 - Anticubital Left Blood Culture - Preliminary No growth in 48 hours. 07/27/18 16:38 Mucosa - Nasopharyngeal Respiratory Panel (PCR) - Final Laboratory Results 07/28/18 15:33: APTT 49.9 H 07/28/18 22:40: APTT 90.5 H* 07/29/18 05:35: WBC 11.6 H, RBC 3.75 L, Hgb 11.1 L, Hct 34.5 L, MCV 92.0, MCH 29.6, MCHC 32.2, RDW 13.6, RDW Differential 44.7 H, Plt Count 185, MPV 11.2, Immature Gran % (Auto) 0.100, Neut % (Auto) 95.2 H, Lymph % (Auto) 2.4 L, [place] % (Auto) 2.3, Eos % (Auto) 0.0, Baso % (Auto) 0.0, Absolute Neuts (auto) 11.0 H, Absolute Lymphs (auto) 0.28 L, Total Counted Not Reportable, Differential Comment SCANNED 07/29/18 05:35: Sodium 146 H, Potassium 3.6, Chloride 112 H, Carbon Dioxide 29.0, Anion Gap 5, BUN 3 L, Creatinine 0.41 L, Estim Creat Clear Calc 103.44, Est GFR (MDRD) Af Amer 208, Est GFR (MDRD) Non-Af 172, BUN/Creatinine Ratio 7.2 L, Glucose 136 H, Calcium 8.1 L 07/29/18 07:10: APTT 54.5 H Current Medications Acetaminophen (Tylenol) 650 mg PO Q6H PRN PRN PRN Reason: Mild Pain (scale 0-3)/T>100.7 Last Admin: 07/28/18 14:39 Dose: 650 mg Hydrocodone Bitart/Acetaminophen ([place] 5mg-325mg) 1 tablet PO TID PRN PRN Reason: PAIN Albuterol Sulfate (Ventolin Aerosols) 2.5 mg INHALATION Q2H PRN PRN PRN Reason: SHORTNESS OF BREATH Last Admin: 07/28/18 23:59 Dose: 2.5 mg Albuterol/Ipratropium (Duoneb) 3 ml INHALATION Q4H.RT [facility] Last Admin: 07/29/18 10:45 Dose: 3 ml Aspirin (Ecotrin) 81 mg PO DAILY@0800 [facility] Last Admin: 07/29/18 09:39 Dose: 81 mg Atorvastatin Calcium (Lipitor) 40 mg PO QHS [facility] Last Admin: 07/28/18 21:56 Dose: 40 mg Benzonatate (Tessalon Perle) 100 mg PO TID PRN PRN PRN Reason: COUGH Buspirone HCl (Buspar) 5 mg PO BID [facility] Last Admin: 07/29/18 09:40 Dose: 5 mg Calcium/Vitamin D (Os-Phillip 500mg + D[facility] Last Admin: 07/29/18 09:39 Dose: 1 tablet Diltiazem HCl (Cardizem Cd) 120 mg PO DAILY [facility] Last Admin: 07/29/18 09:40 Dose: 120 mg Diphenhydramine HCl (Benadryl) 50 mg PO X1 ONE Stop: 07/30/18 07:01 Doxycycline Monohydrate (Doxycycline) 100 mg PO BID [facility] Stop: 08/01/18 22:01 Last Admin: 07/29/18 09:39 Dose: 100 mg Fluticasone Propionate (Flonase Nasal [place]) 1 spray NASAL BID [facility] Last Admin: 07/29/18 09:41 Dose: 1 spray Guaifenesin (Mucinex) 600 mg PO BID [facility] Last Admin: 07/29/18 09:39 Dose: 600 mg Heparin Sodium (Porcine) (Heparin Na) 0 unit IV UD PRN; Protocol Last Admin: 07/28/18 16:31 Dose: 1,000 unit Heparin Sodium/Dextrose () 25,000 units in 250 mls @ 10 mls/hr IV .Q25H [facility]; Protocol Last Admin: 07/29/18 02:23 Dose: Not Given Sodium Chloride () 1,000 mls @ 15 mls/hr IV .Q48H [facility] Loratadine (Claritin) 10 mg PO DAILY PRN PRN Reason: NASAL CONGESTATION Lorazepam (Ativan) 1 mg PO BID PRN PRN PRN Reason: ANXIETY Last Admin: 07/29/18 02:01 Dose: 1 mg Lorazepam (Ativan) 1 mg PO BID [facility] Last Admin: 07/29/18 09:44 Dose: 1 mg Melatonin (Melatonin) 10 mg PO QHS [facility] Last Admin: 07/28/18 21:56 Dose: 10 mg Methylprednisolone (Solu-Medrol) 40 mg IV Q8 [facility] Last Admin: 07/29/18 05:45 Dose: 40 mg Multivitamins (Multivitamin) 1 tablet PO DAILY@0800 [facility] Last Admin: 07/29/18 09:40 Dose: 1 tablet Nitroglycerin (Nitrostat) 0.4 mg SUBLINGUAL Q5M PRN PRN Reason: CHEST PAIN Nutritional Formula (Lactose Free) (Ensure Enlive) 120 ml PO 4X/DAY [facility] Last Admin: 07/29/18 09:42 Dose: Not Given Oxycodone HCl (Oxyir) 5 mg PO Q4H PRN PRN PRN Reason: Moderate Pain (pain scale 4-5) Last Admin: 07/27/18 19:06 Dose: 5 mg Pantoprazole Sodium (Protonix) 40 mg PO DAILY [facility] Last Admin: 07/29/18 09:39 Dose: 40 mg Paroxetine HCl (Paxil) 20 mg PO DAILY [facility] Last Admin: 07/29/18 09:39 Dose: 20 mg Polyethylene Glycol (Miralax) 17 gm PO DAILY PRN PRN Reason: Constipation Senna (Senokot) 1 tablet PO DAILY [facility] Last Admin: 07/29/18 09:39 Dose: 1 tablet Sodium Chloride () 5 - 15 ml IV UD PRN PRN Reason: SALINE FLUSH Last Admin: 07/28/18 22:08 Dose: 10 ml Throat Lozenges (Cepacol Sore Throat Lozenge) 2 lozenge MUCOUS MEM Q2H PRN PRN PRN Reason: SORE THROAT Last Admin: 07/29/18 10:37 Dose: 1 lozenge Ticagrelor (Brilinta) 90 mg PO BID [facility] Last Admin: 07/29/18 10:03 Dose: 90 mg Trazodone HCl (Desyrel) 25 mg PO QHS [facility] Last Admin: 07/28/18 21:57 Dose: 25 mg Medical Necessity - Tobacco Use Smoking Status: Current every day smoker Assessment/Plan All Active Problems Chest pain (Acute) Abnormal EKG (Acute) Non-STEMI (non-ST elevated myocardial infarction) (Acute) Shortness of breath (Acute) Thrush (Acute) Hyponatremia (Resolved) 1. NSTEMI chest pain didnt recur overnight CKG showed T wave inversions in leads V3-6 and inferior leads. troponin trended 0.103->0.123->0.094 on heparin drip, and received a loading dose of brilinta. currently on asprin, heparin and brilinta. to have cardiac cath Monday per cardiology 2D echo: EF of 65%, normal diastology for age, no regionl wall motion abnormalities. RVSp is 34mmhg on cardizem for tachycardia; no beta adamaris o/a of COPD. 2. COPD exacerbation: SOB has improved. on her baseline 3L of oxygen. Breathing treatments. On PO doxycycline. ABG done showed pH of 7.41 with PCO2 of 41 and PO2 of 44. on her baseline 3L of oxygen. 3. Nicotine dependence Still continues to smoke initially on oxygen. States she is now smokes about 10 cigarettes a day but smoked 3 packs a day up to 2067. States she is allergic to nicotine patch and nicotine gum. Counseled to stop smoking. counselled to quit 4. severe anxiety: On Ativan 1 mg twice daily, paroxetine and trazodone as well as buspirone. 5. Severe protein calorie malnutrition: BMI is only 14. Nutrition consulted. DVT prophylaxis: On heparin drip. Code Visit Inpatient E&M: 78393 [facility] Hosp L3
--- NOTE | 2018-07-29 11:48 | PN_ITS ---
Patient Problems: Active and Suspected Problems Chest pain (Acute) Abnormal EKG (Acute) Non-STEMI (non-ST elevated myocardial infarction) (Acute) Subjective: Patient seen and examined. She still complains of severe anxiety. Chest pain did not recur overnight. She still does have shortness of breath which is her baseline. She denies any palpitations. Review of systems otherwise negative. Labs and vitals reviewed. Sodium noted to have trended up slightly at 146 with chloride also up to 112. She still remains mildly tachycardic and tachypneic. Vitals/I&O's: Vital Signs Temp Pulse Resp BP Pulse Ox 97.8 F 104 H 22 H 101/63 99 07/29/18 08:00 07/29/18 10:45 07/29/18 10:45 07/29/18 08:00 07/29/18 10:45 Oxygen Flow Rate (L/min) 4 Oxygen Delivery Method Nasal Cannula Weight: 87 lb 15.995 oz Body Mass Index (BMI) 14.1 Intake and Output for Last 24 Hours 07/27/18 07/28/18 07/29/18 23:59 23:59 23:59 Intake Total 217 / 217 3939.4 / 3939.4 1488.9 / 1488.9 Output Total 100 / 100 2225 / 2225 1275 / 1275 Balance 117 / 117 1714.4 / 1714.4 213.9 / 213.9 General: Alert, Oriented x3, Cooperative, No apparent distress HEENT: Atraumatic, PERRLA, EOMI, Normocephalic Oral: Moist Mucosa Neck: Supple, No JVD, Negative Carotid Bruits Lungs: Clear to auscultation, Normal air movement, - - on 3L of oxygen, which is her baseline Cardiovascular: Regular rate, Regular Rhythm, Normal S1, Normal S2, No murmurs Abdomen: Bowel Sounds Present, Soft, Non Tender, Non-Distended, No Hepato- splenomegaly Extremities: No clubbing, No cyanosis, No edema, Capillary Refill Less than 3 Seconds Skin: No rashes, No breakdown Musculoskeletal: No Tenderness to Palpation of Joints or Extremities Lymphatic: No Cervical, Supraclavicular, or Inguinal Adenopathy Neurological: Cranial nerves II-XII grossly intact, Neuro grossly intact, Motor Exam 5/5 strength throughout Psych/Mental Status: Anxious, Alert and oriented to time, place, person, mood and affect Microbiology Past 72 Hours 07/27/18 13:45 Blood Culture (Wb) #2 - Right Forearm Blood Culture - Preliminary No growth in 48 hours. 07/27/18 13:40 Blood Culture (Wb) #2 - Anticubital Left Blood Culture - Preliminary No growth in 48 hours. 07/27/18 16:38 Mucosa - Nasopharyngeal Respiratory Panel (PCR) - Final Laboratory Results 07/28/18 15:33: APTT 49.9 H 07/28/18 22:40: APTT 90.5 H* 07/29/18 05:35: WBC 11.6 H, RBC 3.75 L, Hgb 11.1 L, Hct 34.5 L, MCV 92.0, MCH 29.6, MCHC 32.2, RDW 13.6, RDW Differential 44.7 H, Plt Count 185, MPV 11.2, Immature Gran % (Auto) 0.100, Neut % (Auto) 95.2 H, Lymph % (Auto) 2.4 L, [place] % (Auto) 2.3, Eos % (Auto) 0.0, Baso % (Auto) 0.0, Absolute Neuts (auto) 11.0 H, Absolute Lymphs (auto) 0.28 L, Total Counted Not Reportable, Differential Comment SCANNED 07/29/18 05:35: Sodium 146 H, Potassium 3.6, Chloride 112 H, Carbon Dioxide 29.0, Anion Gap 5, BUN 3 L, Creatinine 0.41 L, Estim Creat Clear Calc 103.44, Est GFR (MDRD) Af Amer 208, Est GFR (MDRD) Non-Af 172, BUN/Creatinine Ratio 7.2 L, Glucose 136 H, Calcium 8.1 L 07/29/18 07:10: APTT 54.5 H Current Medications Acetaminophen (Tylenol) 650 mg PO Q6H PRN PRN PRN Reason: Mild Pain (scale 0-3)/T>100.7 Last Admin: 07/28/18 14:39 Dose: 650 mg Hydrocodone Bitart/Acetaminophen ([place] 5mg-325mg) 1 tablet PO TID PRN PRN Reason: PAIN Albuterol Sulfate (Ventolin Aerosols) 2.5 mg INHALATION Q2H PRN PRN PRN Reason: SHORTNESS OF BREATH Last Admin: 07/28/18 23:59 Dose: 2.5 mg Albuterol/Ipratropium (Duoneb) 3 ml INHALATION Q4H.RT [facility] Last Admin: 07/29/18 10:45 Dose: 3 ml Aspirin (Ecotrin) 81 mg PO DAILY@0800 [facility] Last Admin: 07/29/18 09:39 Dose: 81 mg Atorvastatin Calcium (Lipitor) 40 mg PO QHS [facility] Last Admin: 07/28/18 21:56 Dose: 40 mg Benzonatate (Tessalon Perle) 100 mg PO TID PRN PRN PRN Reason: COUGH Buspirone HCl (Buspar) 5 mg PO BID [facility] Last Admin: 07/29/18 09:40 Dose: 5 mg Calcium/Vitamin D (Os-Phillip 500mg + D) [facility] Last Admin: 07/29/18 09:39 Dose: 1 tablet Diltiazem HCl (Cardizem Cd) 120 mg PO DAILY [facility] Last Admin: 07/29/18 09:40 Dose: 120 mg Diphenhydramine HCl (Benadryl) 50 mg PO X1 ONE Stop: 07/30/18 07:01 Doxycycline Monohydrate (Doxycycline) 100 mg PO BID [facility] Stop: 08/01/18 22:01 Last Admin: 07/29/18 09:39 Dose: 100 mg Fluticasone Propionate (Flonase Nasal [place]) 1 spray NASAL BID [facility] Last Admin: 07/29/18 09:41 Dose: 1 spray Guaifenesin (Mucinex) 600 mg PO BID [facility] Last Admin: 07/29/18 09:39 Dose: 600 mg Heparin Sodium (Porcine) (Heparin Na) 0 unit IV UD PRN; Protocol Last Admin: 07/28/18 16:31 Dose: 1,000 unit Heparin Sodium/Dextrose () 25,000 units in 250 mls @ 10 mls/hr IV .Q25H [facility]; Protocol Last Admin: 07/29/18 02:23 Dose: Not Given Sodium Chloride () 1,000 mls @ 15 mls/hr IV .Q48H [facility] Loratadine (Claritin) 10 mg PO DAILY PRN PRN Reason: NASAL CONGESTATION Lorazepam (Ativan) 1 mg PO BID PRN PRN PRN Reason: ANXIETY Last Admin: 07/29/18 02:01 Dose: 1 mg Lorazepam (Ativan) 1 mg PO BID [facility] Last Admin: 07/29/18 09:44 Dose: 1 mg Melatonin (Melatonin) 10 mg PO QHS [facility] Last Admin: 07/28/18 21:56 Dose: 10 mg Methylprednisolone (Solu-Medrol) 40 mg IV Q8 [facility] Last Admin: 07/29/18 05:45 Dose: 40 mg Multivitamins (Multivitamin) 1 tablet PO DAILY@0800 [facility] Last Admin: 07/29/18 09:40 Dose: 1 tablet Nitroglycerin (Nitrostat) 0.4 mg SUBLINGUAL Q5M PRN PRN Reason: CHEST PAIN Nutritional Formula (Lactose Free) (Ensure Enlive) 120 ml PO 4X/DAY [facility] Last Admin: 07/29/18 09:42 Dose: Not Given Oxycodone HCl (Oxyir) 5 mg PO Q4H PRN PRN PRN Reason: Moderate Pain (pain scale 4-5) Last Admin: 07/27/18 19:06 Dose: 5 mg Pantoprazole Sodium (Protonix) 40 mg PO DAILY [facility] Last Admin: 07/29/18 09:39 Dose: 40 mg Paroxetine HCl (Paxil) 20 mg PO DAILY [facility] Last Admin: 07/29/18 09:39 Dose: 20 mg Polyethylene Glycol (Miralax) 17 gm PO DAILY PRN PRN Reason: Constipation Senna (Senokot) 1 tablet PO DAILY [facility] Last Admin: 07/29/18 09:39 Dose: 1 tablet Sodium Chloride () 5 - 15 ml IV UD PRN PRN Reason: SALINE FLUSH Last Admin: 07/28/18 22:08 Dose: 10 ml Throat Lozenges (Cepacol Sore Throat Lozenge) 2 lozenge MUCOUS MEM Q2H PRN PRN PRN Reason: SORE THROAT Last Admin: 07/29/18 10:37 Dose: 1 lozenge Ticagrelor (Brilinta) 90 mg PO BID [facility] Last Admin: 07/29/18 10:03 Dose: 90 mg Trazodone HCl (Desyrel) 25 mg PO QHS [facility] Last Admin: 07/28/18 21:57 Dose: 25 mg Medical Necessity - Tobacco Use Smoking Status: Current every day smoker Assessment/Plan All Active Problems Chest pain (Acute) Abnormal EKG (Acute) Non-STEMI (non-ST elevated myocardial infarction) (Acute) Shortness of breath (Acute) Thrush (Acute) Hyponatremia (Resolved) 1. NSTEMI * chest pain didnt recur overnight * CKG showed T wave inversions in leads V3-6 and inferior leads. * troponin trended 0.103->0.123->0.094 * on heparin drip, and received a loading dose of brilinta. currently on asprin, heparin and brilinta. * to have cardiac cath Monday per cardiology * 2D echo: EF of 65%, normal diastology for age, no regionl wall motion abnormalities. RVSp is 34mmhg * on cardizem for tachycardia; no beta adamaris o/a of COPD. * 2. COPD exacerbation: * SOB has improved. on her baseline 3L of oxygen. * Breathing treatments. On PO doxycycline. * ABG done showed pH of 7.41 with PCO2 of 41 and PO2 of 44. * on her baseline 3L of oxygen. * 3. Nicotine dependence * Still continues to smoke initially on oxygen. States she is now smokes about 10 cigarettes a day but smoked 3 packs a day up to 2067. * States she is allergic to nicotine patch and nicotine gum. Counseled to stop smoking. * counselled to quit * 4. severe anxiety: On Ativan 1 mg twice daily, paroxetine and trazodone as well as buspirone. 5. Severe protein calorie malnutrition: BMI is only 14. Nutrition consulted. DVT prophylaxis: On heparin drip. Code Visit Inpatient E&M: 67030 [facility] Hosp L3
[2018-07-29] MEDS: 0.9% NaCl Peripheral Flush Adult/Peds IV ×2 (12:54→21:16)
[2018-07-29] MEDS: Albuterol 2.5 MG/3 ML VIAL.NEB. INHALATION (12:57)
[2018-07-29 14:52] LABS: Partial Thromboplast Time 50.9 Seconds (24.1-36.2)
[2018-07-29] MEDS: Heparin Injection (Vial) 5,000 UNIT/ML VIAL IV (15:10)
[2018-07-29] MEDS: HEPARIN/D5w 25,000 UNITS 25,000 UNITS/250 ML IV.SOLN. 10 UNITS IV (15:16)
[2018-07-29 16:05] LABS: Magnesium 2.2 mg/dL (1.6-2.6); Potassium 3.4 mmol/L (3.5-5.1)
[2018-07-29] MEDS: Acetaminophen 325 MG Tablet 650 MG PO (16:40)
[2018-07-29] MEDS: Calcium Carbonate 500 MG Tablet 1000 MG PO (21:05)
[2018-07-29] MEDS: MELATONIN 10 MG TABLET PO (21:07)
[2018-07-29] MEDS: Atorvastatin Calcium 40 MG Tablet PO (21:07)
[2018-07-29] MEDS: traZODone 50 MG Tablet 25 MG PO (21:07)
[2018-07-29 22:30] LABS: Partial Thromboplast Time 95.6 Seconds (24.1-36.2)
[2018-07-29 22:36] LABS: Bacteria 0 SEEN /hpf (None Seen); Mucous, Urine 0 SEEN /hpf (<or=2+); Red Blood Cells-Urine 0 SEEN /hpf (0-5); Squamous Epithelial Cells - UA 0 SEEN /hpf (5-10); White Blood Cells 0 SEEN /hpf (0-5)
[2018-07-29 22:41] LABS: Internal QC Validated? YES +Cl - CLEAR BKGD
[2018-07-29 22:42] LABS: Pregnancy, Urine Negative Negative
[2018-07-29 22:50] LABS: Color, Urine Yellow (Yellow); Glucose, Dipstick Normal (Normal); Ketone-Dipstick Negative (Negative); Leukocyte Esterase-Dipstick 25 /ul (Negative); Nitrite-Dipstick Negative (Negative); Occult Blood-Urine Negative /ul (Negative); Protein-Dipstick Negative (Negative); Urine Bilirubin Dipstick Negative (Negative); Urine Clarity Clear (Clear); Urine Urobilinogen Normal (Normal)
[2018-07-30] VITALS (30 sets, daily range): BP systolic 102–151; BP diastolic 64–94; PULSE 90–140; RESP 16–28; TEMP 35.8–37; O2SAT 92–98
[2018-07-30] MEDS: Ipratropium/Albuterol Sulfate 3 ML AMPUL.NEB INHALATION ×5 (03:21→23:49)
[2018-07-30 04:46] LABS: Anion Gap 5 (5-15); BUN 7 mg/dL (7-18); BUN/Creat Ratio 14.4 RATIO (10-20); Calcium,Total 8.3 mg/dL (8.5-10.1); Chloride 109 mmol/L (98-107); Creatinine, Serum 0.49 mg/dL (0.55-1.02); EST Glomerular Filtration Rate 143 mL/min (>60); Est Glom Filt Rate - Afr Amer 173 mL/min (>60); Estimated Creatinine Clearance 86.55 ml/min; Glucose 164 mg/dL (74-106); Potassium 3.7 mmol/L (3.5-5.1); Sodium Level 145 mmol/L (136-145)
[2018-07-30] MEDS: LORazepam 1 MG Tablet PO ×5 (05:08→21:49)
[2018-07-30 05:17] LABS: Partial Thromboplast Time 45.7 Seconds (24.1-36.2)
--- NOTE | 2018-07-30 05:55 | EKG12_ITS ---
Test Reason : AM EKG Blood Pressure : / mmHG Vent. Rate : 086 BPM Atrial Rate : 086 BPM P-R Int : 130 ms QRS Dur : 082 ms QT Int : 414 ms P-R-T Axes : 084 077 245 degrees QTc Int : 495 ms Poor data quality, interpretation may be adversely affected Normal sinus rhythm ST & Marked T wave abnormality, consider anterolateral ischemia Prolonged QT Abnormal ECG When compared with ECG of 27-JUL-2018 16:17, MANUAL COMPARISON REQUIRED, DATA IS UNCONFIRMED Confirmed by RONEN WASHINGTON, JUNG ([id number]), legal editor MICHEL KINNEY ([id number] on 08/01/2018 10:01:56 AM Referred By: Juan Skaggs Confirmed By:JUNG HARDWICK MD
[2018-07-30] MEDS: dilTIAZem CD 120 MG Capsule PO (05:57)
[2018-07-30] MEDS: Aspirin E.C. 81 MG Tablet PO (05:57)
[2018-07-30] MEDS: TICAGRELOR 90 MG TABLET PO (05:57)
[2018-07-30] MEDS: 0.9% Normal Saline 1,000 ML 15 ML IV (05:58)
[2018-07-30 06:02] LABS: Absolute Lymphocyte Count 0.39 X10^3/ul (0.83-4.51); Absolute Neutrophil Count 13.7 X10^3/uL (2.0-7.7); Hematocrit 34.1 % (37-47); Hemoglobin 10.9 g/dl (12.0-15.0); Lymphocyte # 0.39 X10^3/ul (4.0); Lymphocyte % 2.7 % (19-41); Mean Corpuscular Hgb 29.5 pg (27.0-32.0); Mean Corpuscular Volume 92.4 fL (81-99); Monocyte# 0.19 X10^3/uL; Monocyte% 1.3 % (0-10); Neutrophil # 13.66 X10^3/uL (2.7-7.7); Neutrophil % 95.9 % (47-70); Platelet Count 187 K/mm3 (150-450); RBC Distribution Width CV 13.9 % (11.6-14.6); RBC Distribution Width SD 47.1 fl (35.1-43.9); Red Blood Count 3.69 M/mm3 (4.2-5.4); White Blood Count 14.3 K/mm3 (4.4-11.0)
[2018-07-30 06:03] LABS: Differential Indicated SCAN CRITERIA MET; International Normalized Ratio 1.2; POSITIVE COUNT NO; POSITIVE DIFFERENTIAL YES; POSITIVE MORPHOLOGY NO
[2018-07-30 06:49] LABS: Differential Comment SCANNED
[2018-07-30] MEDS: DiphenhydrAMINE 25 MG Capsule 50 MG PO (07:57)
[2018-07-30] MEDS: Albuterol 2.5 MG/3 ML VIAL.NEB. INHALATION ×2 (09:58→16:12)
[2018-07-30] MEDS: Fluticasone 0.05% 1 SPRAY NASAL.SRY NASAL ×2 (11:32→21:51)
[2018-07-30] MEDS: busPIRone 5 MG Tablet PO ×2 (11:32→21:50)
--- NOTE | 2018-07-30 12:09 | NURSING ---
Pt taken to lab animal technician, report called to Jackelyn WALLACE.
[2018-07-30 13:05] LABS: Blood Gas Specimen Type VEN; VBG BASE EXCESS 10 mmol/L (-1.0-3.5); VBG Bicarbonate 36 mmol/L (22-26); VBG Oxygen Content 38 mmol/L (23-33); VBG PO2 26 mmHg (25-40); VBG SO2 41 % (50-70); VBG pCO2 67.1 mmHg (41-51); VBG pH 7.33 (7.32-7.42)
[2018-07-30 13:05] LABS: Blood Gas Specimen Type VEN; VBG BASE EXCESS 9 mmol/L (-1.0-3.5); VBG Bicarbonate 35 mmol/L (22-26); VBG Oxygen Content 37 mmol/L (23-33); VBG PO2 24 mmHg (25-40); VBG SO2 37 % (50-70); VBG pCO2 66.9 mmHg (41-51); VBG pH 7.33 (7.32-7.42)
--- NOTE | 2018-07-30 13:05 | CL.D_ITS ---
Patient Name: ANDI GOODWIN Study Date: 07/30/2018 Performing: Jace English MD Ht: 66.14 inches 168 cm : 1970 Wt: 88.18 lbs 40 kg Age: 48 Gender: female BSA: 1.41 PROCEDURE(S) PERFORMED LL32-USV/LHC/COR/LV CLINICAL PROFILE AND INDICATIONS Indications: New Onset Angina <= 2 months, Suspected CAD Heart Failure: None Stress/Imaging Stress/Image Study Performed: No Angina Classification Anginal Classification w/in 2 Weeks: CCS IV CAD Presentations: Unstable angina. Comorbidities/Risk Factors: Current/Recent Smoker (< 1year) Hypertension Chronic Lung Disease CONCLUSIONS Normal coronary arteries Perserved Left Ventricular systolic function with normal EDP Normal coronary arteries The patient has pulmonary hypertension which is moderate to severe. RECOMMENDATIONS Management as per referring Market Manager D/c brparvizta, continue asa. Consider halfway anti-coagulation for moderate to severe pulmonary HTN . DESCRIPTION OF PROCEDURE The patient arrived to the procedure lab. The risks and benefits of the procedure as well as a full d escription of our services here and current unavailability of surgical backup were fully explained to the patient and/or their significant other prior to the catheterization. The Timeout was completed, verifying the correct patient and procedure. The patient's procedural site was prepped and draped in the usual fashion. Local anesthetic was given subcutaneously to right groin region with Lidocaine 2%. Using a modified Seldinger technique, arterial access was obtained via the right femoral artery, a 4 Fr sheath was inserted Venous access was obtained via the right femoral vein, a 7Fr sheath was insert ed. A 7Fr thermal dilution catheter was inserted and right heart pressures were recorded, it was then advanced to PA position for cardiac outputs. Thermal dilution cardiac outputs were then recorded. O2 saturations were then obtained. The Thermal dilution catheter was then removed. Left Ventriculography was performed in TORREZ projection using a 4 Fr. Pigtail catheter. Simultaneous pressur es were then recorded. LV to AO pullback pressures were then recorded. Left Coronary Artery selective angiography was performed in multiple views using a 4 Fr. JL5 catheter. Right Coronary Artery select doni angiography was then performed in multiple views using a 4 Fr. 3DRC catheter.The arterial sheath was pulled and manual compression applied until hemostasis is achieved.. The venous sheath was then p ulled and manual compression applied until hemostasis achieved CORONARY ANGIOGRAPHY DOMINANCE: Right Dominant LEFT HEART ASSESSMENT Left Ventricular Ejection Fraction: by LV Gram 75 % Normal LV wall motion Normal Left Ventricular systolic function Left Ventricular Hypertrophy RIGHT HEART ASSESSMENT Thermal CO: 4.46 Thermal CI: 3.16 Jason CO: 2.26 Jason CI: 1.6 PW: 52/56 41 PA: 65/23 48 RV: 61/10 16 RA: 06/18 -5 PVR: 126 LEFT MAIN: Angiographically normal LEFT ANTERIOR DECENDING ARTERY: Angiographically normal CIRCUMFLEX ARTERY: Angiographically normal RIGHT CORONARY ARTERY: Angiographically normal COMPLICATIONS No Complications PROCEDURE MEDICATIONS Oxygen: 3 L/min via nasal cannula Cardizem 10 mg IV 07/30/2018 12:55:34 SUMMARY OF HEMODYNAMIC DATA Time AIR REST RA 06/18 (-5) 12:25:56 RA 18/ (13) 12:26:20 RV 61/10, 16 12:26:36 PW 52/56 (41) PV 12:28:02 PA 65/23 (48) PA 12:28:23 PW 47/56 (34) 12:30:13 LV 127/14, 29 12:34:24 LV 31/-22, -7 12:34:30 LV 132/12, 28 12:34:52 LV 112/13, 30 12:34:58 LV 134/17, 32 12:35:26 PW 41/42 (31) 12:35:26 LV 116/21, 34 12:35:33 PW 45/48 (34) 12:35:33 LV 111/20, 28 12:35:49 RV 54/6, 16 12:35:49 LV 123/22, 36 12:36:03 RV 39/0, 7 12:36:03 LV 125/15, 28 12:36:21 RV 48/2, 13 12:36:21 LV 125/3, 27 12:37:19 AO 111/88 (98) SA 12:39:56 ECG 12:57:29 Type SV CO (l/m) CI (l/m/ HR Time AIR REST Thermal 44.20 4.46 3.15 101 12:15:58 Jason 22.40 2.27 1.60 101 12:15:58 Label % O2 Pres/Loc Time AIR REST AO 95 PV 12:46:25 PA 39 PA 12:47:04 Signed By Jace English MD On 07/30/2018 13:04:51 Jace English MD
[2018-07-30 13:06] LABS: Base Excess 6 mmol/L (-2 to +2); Bicarbonate 32.4 mmol/L (22-26); Blood Gas Specimen Type ART; PO2 83 mmHG (75-100); SO2 95 % (95-99); Total Carbon Dioxide 34 mmol/L; pH 7.32 (7.35-7.45)
--- NOTE | 2018-07-30 15:23 | CASEMGMT ---
Addendum entered by Lu Coy 07/30/18 15:27: Giancarlo Parkinson out of the office. Spoke with Rob Arthur who is aware that patient is currently an inpatient. SIDRA Wong Original Note: Social Work: Patient lives at [facility] under the [place] waiver. Patient's renal case manager is Giancarlo Parkinson. TC to Giancarlo Parkinson. Voice mail message left. Will follow to assist as needed with D/C planning. SIDRA Wong
--- NOTE | 2018-07-30 15:55 | PCM.PN.HOSP ---
Patient Problems: Active and Suspected Problems Chest pain (Acute) Abnormal EKG (Acute) Non-STEMI (non-ST elevated myocardial infarction) (Acute) Subjective: no further chest pain. Vitals/I&O's: Vital Signs Temp Pulse Resp BP Pulse Ox 36.0 C L 108 H 22 H 102/94 H 95 07/30/18 14:35 07/30/18 14:35 07/30/18 14:35 07/30/18 14:35 07/30/18 14:35 Oxygen Flow Rate (L/min) 4 Oxygen Delivery Method Nasal Cannula Weight: 39.916 kg Body Mass Index (BMI) 14.1 Intake and Output for Last 24 Hours 07/28/18 07/29/18 07/30/18 23:59 23:59 23:59 Intake Total 3939.4 / 3939.4 1751.4 / 1751.4 286.8 / 286.8 Output Total 2225 / 2225 3025 / 3025 1125 / 1125 Balance 1714.4 / 1714.4 -1273.6 / -1273.6 -838.2 / -838.2 General: Alert, No apparent distress HEENT: Atraumatic, Normocephalic Oral: Moist Mucosa, No Gingival or Mucosal Lesions/ Ulcerations Neck: No Nodes, Thyroid Normal Size and Texture Lungs: Clear to auscultation, Normal air movement, No rhonchi, No wheeze Cardiovascular: Regular rate, Regular Rhythm, Normal S1, Normal S2, No murmurs Abdomen: Bowel Sounds Present, Soft, Non Tender, Non-Distended, No Hepato-splenomegaly Extremities: No edema, No Calf Tenderness Skin: No rashes, No breakdown Musculoskeletal: Cachexia, Muscle Wasting Psych/Mental Status: Appropriate, Flat Affect Microbiology Past 72 Hours 07/27/18 13:45 Blood Culture (Wb) #2 - Right Forearm Blood Culture - Preliminary No growth in 48 hours. 07/27/18 13:40 Blood Culture (Wb) #2 - Anticubital Left Blood Culture - Preliminary No growth in 48 hours. 07/27/18 16:38 Mucosa - Nasopharyngeal Respiratory Panel (PCR) - Final Laboratory Results 07/29/18 15:30: Potassium 3.4 L, Magnesium 2.2 07/29/18 21:00: Urine Color Yellow, Urine Clarity Clear, Urine pH 7.0, Ur Specific [place] 1.010, Urine Protein Negative, Urine Glucose (UA) Normal, Urine Ketones Negative, Urine Occult Blood Negative, Urine Nitrite Negative, Urine Bilirubin Negative, Urine Urobilinogen Normal, Ur Leukocyte Esterase 25 H, Urine RBC 0 SEEN, Urine WBC 0 SEEN, Ur Squamous Epith Cells 0 SEEN, Urine Bacteria 0 SEEN, Urine Mucus 0 SEEN, Urine Test Negative 07/29/18 21:20: APTT 95.6 H* 07/30/18 03:46: WBC 14.3 H, RBC 3.69 L, Hgb 10.9 L, Hct 34.1 L, MCV 92.4, MCH 29.5, MCHC 32.0, RDW 13.9, RDW Differential 47.1 H, Plt Count 187, MPV 11.0, Immature Gran % (Auto) 0.100, Neut % (Auto) 95.9 H, Lymph % (Auto) 2.7 L, Barren % (Auto) 1.3, Eos % (Auto) 0.0, Baso % (Auto) 0.0, Absolute Neuts (auto) 13.7 H, Absolute Lymphs (auto) 0.39 L, Total Counted Not Reportable, Differential Comment SCANNED 07/30/18 03:46: Sodium 145, Potassium 3.7, Chloride 109 H, Carbon Dioxide 31.0, Anion Gap 5, BUN 7, Creatinine 0.49 L, Estim Creat Clear Calc 86.55, Est GFR (MDRD) Af Amer 173, Est GFR (MDRD) Non-Af 143, BUN/Creatinine Ratio 14.4, Glucose 164 H, Calcium 8.3 L 07/30/18 03:46: PT 15.0 H, INR 1.2 07/30/18 03:46: APTT 45.7 H 07/30/18 12:32: Specimen Type JUNE, VBG pH 7.33, VBG pO2 24 L, VBG O2 Sat (Calc) 37 L, VBG O2 Content 37 H, VBG Base Excess 9 H, POC Mix VBG pCO2 Pt Tmp 66.9 H 07/30/18 12:35: Specimen Type JUNE, VBG pH 7.33, VBG pO2 26, VBG O2 Sat (Calc) 41 L, VBG O2 Content 38 H, VBG Base Excess 10 H, POC Mix VBG pCO2 Pt Tmp 67.1 H 07/30/18 12:45: Specimen Type ART, pH 7.32 L, Bicarbonate Actual 32.4 H, POC Total CO2 34, Base Excess 6 H, O2 Saturation 95, ABG pCO2 63.0 H, ABG pO2 83 Current Medications Acetaminophen (Tylenol) 650 mg PO Q6H PRN PRN PRN Reason: Mild Pain (scale 0-3)/T>100.7 Last Admin: 07/29/18 16:40 Dose: 650 mg Hydrocodone Bitart/Acetaminophen ([place] 5mg-325mg) 1 tablet PO TID PRN PRN Reason: PAIN Albuterol Sulfate (Ventolin Aerosols) 2.5 mg INHALATION Q2H PRN PRN PRN Reason: SHORTNESS OF BREATH Last Admin: 07/30/18 09:58 Dose: 2.5 mg Albuterol/Ipratropium (Duoneb) 3 ml INHALATION Q4H.RT [facility] Last Admin: 07/30/18 13:51 Dose: 3 ml Aspirin (Ecotrin) 81 mg PO DAILY@0800 [facility] Last Admin: 07/30/18 05:57 Dose: 81 mg Atorvastatin Calcium (Lipitor) 40 mg PO QHS [facility] Last Admin: 07/29/18 21:07 Dose: 40 mg Benzonatate (Tessalon Perle) 100 mg PO TID PRN PRN PRN Reason: COUGH Buspirone HCl (Buspar) 5 mg PO BID [facility] Last Admin: 07/30/18 11:32 Dose: 5 mg Calcium Carbonate (Tums) 1,000 mg PO Q4H PRN PRN PRN Reason: dyspepsia, indigestion Last Admin: 07/29/18 21:05 Dose: 1,000 mg Calcium/Vitamin D (Os-Phillip 500mg + D) [facility] Last Admin: 07/29/18 16:40 Dose: 1 tablet Diltiazem HCl (Cardizem Cd) 120 mg PO DAILY [facility] Last Admin: 07/30/18 05:57 Dose: 120 mg Doxycycline Monohydrate (Doxycycline) 100 mg PO BID [facility] Stop: 08/01/18 22:01 Last Admin: 07/29/18 21:07 Dose: 100 mg Fluticasone Propionate (Flonase Nasal [place]) 1 spray NASAL BID [facility] Last Admin: 07/30/18 11:32 Dose: 1 spray Guaifenesin (Mucinex) 600 mg PO BID [facility] Last Admin: 07/29/18 21:08 Dose: 600 mg Heparin Sodium (Beef Lung) (Heparin 500 Unit/5 Ml (100/Ml)) 500 unit IV UD PRN PRN Reason: HEPARIN FLUSH Heparin Sodium (Porcine) (Heparin Na) 0 unit IV UD PRN; Protocol Last Admin: 07/29/18 15:10 Dose: 1,000 unit Heparin Sodium/Dextrose () 25,000 units in 250 mls @ 10 mls/hr IV .Q25H [facility]; Protocol Last Admin: 07/29/18 15:16 Dose: 10 mls/hr Sodium Chloride () 1,000 mls @ 15 mls/hr IV .Q48H [facility] Last Admin: 07/30/18 05:58 Dose: 15 mls/hr Labetalol HCl (Trandate) 5 mg IV X1 PRN PRN Reason: SBP > 160 prior to sheath pull Stop: 08/01/18 12:44 Loratadine (Claritin) 10 mg PO DAILY PRN PRN Reason: NASAL CONGESTATION Lorazepam (Ativan) 1 mg PO BID PRN PRN PRN Reason: ANXIETY Last Admin: 07/30/18 13:59 Dose: 1 mg Lorazepam (Ativan) 1 mg PO BID [facility] Last Admin: 07/30/18 11:32 Dose: 1 mg Melatonin (Melatonin) 10 mg PO QHS [facility] Last Admin: 07/29/18 21:07 Dose: 10 mg Methylprednisolone (Solu-Medrol) 40 mg IV Q8 [facility] Last Admin: 07/30/18 05:57 Dose: 40 mg Multivitamins (Multivitamin) 1 tablet PO DAILY@0800 [facility] Last Admin: 07/29/18 09:40 Dose: 1 tablet Nitroglycerin (Nitrostat) 0.4 mg SUBLINGUAL Q5M PRN PRN Reason: CHEST PAIN Nutritional Formula (Lactose Free) (Ensure Enlive) 120 ml PO 4X/DAY [facility] Last Admin: 07/30/18 11:33 Dose: Not Given Oxycodone HCl (Oxyir) 5 mg PO Q4H PRN PRN PRN Reason: Moderate Pain (pain scale 4-5) Last Admin: 07/27/18 19:06 Dose: 5 mg Pantoprazole Sodium (Protonix) 40 mg PO DAILY [facility] Last Admin: 07/29/18 09:39 Dose: 40 mg Paroxetine HCl (Paxil) 20 mg PO DAILY [facility] Last Admin: 07/29/18 09:39 Dose: 20 mg Polyethylene Glycol (Miralax) 17 gm PO DAILY PRN PRN Reason: Constipation Senna (Senokot) 1 tablet PO DAILY [facility] Last Admin: 07/29/18 09:39 Dose: 1 tablet Sodium Chloride () 5 - 15 ml IV UD PRN PRN Reason: SALINE FLUSH Last Admin: 07/29/18 21:16 Dose: 10 ml Throat Lozenges (Cepacol Sore Throat Lozenge) 2 lozenge MUCOUS MEM Q2H PRN PRN PRN Reason: SORE THROAT Last Admin: 07/29/18 20:06 Dose: 2 lozenge Trazodone HCl (Desyrel) 25 mg PO QHS [facility] Last Admin: 07/29/18 21:07 Dose: 25 mg Medical Necessity - Tobacco Use Smoking Status: Current every day smoker Assessment/Plan All Active Problems Chest pain (Acute) Abnormal EKG (Acute) Non-STEMI (non-ST elevated myocardial infarction) (Acute) Shortness of breath (Acute) Thrush (Acute) Hyponatremia (Resolved) 1. Unstable angina slightly elevated troponins [facility] today showed normal coronaries continue ASA follow up with cardiology as outpt 2. Moderate-severe pulmonary HTN group 3 d/t COPD DW Dr. English, who request pulm consult for anticoagulation recommendations Dr. You to see. Code Visit Inpatient E&M: 07333 Subs Hosp L2
--- NOTE | 2018-07-30 16:01 | PN_ITS ---
Patient Problems: Active and Suspected Problems Chest pain (Acute) Abnormal EKG (Acute) Non-STEMI (non-ST elevated myocardial infarction) (Acute) Subjective: no further chest pain. Vitals/I&O's: Vital Signs Temp Pulse Resp BP Pulse Ox 36.0 C L 108 H 22 H 102/94 H 95 07/30/18 14:35 07/30/18 14:35 07/30/18 14:35 07/30/18 14:35 07/30/18 14:35 Oxygen Flow Rate (L/min) 4 Oxygen Delivery Method Nasal Cannula Weight: 39.916 kg Body Mass Index (BMI) 14.1 Intake and Output for Last 24 Hours 07/28/18 07/29/18 07/30/18 23:59 23:59 23:59 Intake Total 3939.4 / 3939.4 1751.4 / 1751.4 286.8 / 286.8 Output Total 2225 / 2225 3025 / 3025 1125 / 1125 Balance 1714.4 / 1714.4 -1273.6 / -1273.6 -838.2 / -838.2 General: Alert, No apparent distress HEENT: Atraumatic, Normocephalic Oral: Moist Mucosa, No Gingival or Mucosal Lesions/ Ulcerations Neck: No Nodes, Thyroid Normal Size and Texture Lungs: Clear to auscultation, Normal air movement, No rhonchi, No wheeze Cardiovascular: Regular rate, Regular Rhythm, Normal S1, Normal S2, No murmurs Abdomen: Bowel Sounds Present, Soft, Non Tender, Non-Distended, No Hepato- splenomegaly Extremities: No edema, No Calf Tenderness Skin: No rashes, No breakdown Musculoskeletal: Cachexia, Muscle Wasting Psych/Mental Status: Appropriate, Flat Affect Microbiology Past 72 Hours 07/27/18 13:45 Blood Culture (Wb) #2 - Right Forearm Blood Culture - Preliminary No growth in 48 hours. 07/27/18 13:40 Blood Culture (Wb) #2 - Anticubital Left Blood Culture - Preliminary No growth in 48 hours. 07/27/18 16:38 Mucosa - Nasopharyngeal Respiratory Panel (PCR) - Final Laboratory Results 07/29/18 15:30: Potassium 3.4 L, Magnesium 2.2 07/29/18 21:00: Urine Color Yellow, Urine Clarity Clear, Urine pH 7.0, Ur Specific [place] 1.010, Urine Protein Negative, Urine Glucose (UA) Normal, Urine Ketones Negative, Urine Occult Blood Negative, Urine Nitrite Negative, Urine Bilirubin Negative, Urine Urobilinogen Normal, Ur Leukocyte Esterase 25 H, Urine RBC 0 SEEN, Urine WBC 0 SEEN, Ur Squamous Epith Cells 0 SEEN, Urine Bacteria 0 SEEN, Urine Mucus 0 SEEN, Urine Test Negative 07/29/18 21:20: APTT 95.6 H* 07/30/18 03:46: WBC 14.3 H, RBC 3.69 L, Hgb 10.9 L, Hct 34.1 L, MCV 92.4, MCH 29.5, MCHC 32.0, RDW 13.9, RDW Differential 47.1 H, Plt Count 187, MPV 11.0, Immature Gran % (Auto) 0.100, Neut % (Auto) 95.9 H, Lymph % (Auto) 2.7 L, [place] % (Auto) 1.3, Eos % (Auto) 0.0, Baso % (Auto) 0.0, Absolute Neuts (auto) 13.7 H, Absolute Lymphs (auto) 0.39 L, Total Counted Not Reportable, Differential Comment SCANNED 07/30/18 03:46: Sodium 145, Potassium 3.7, Chloride 109 H, Carbon Dioxide 31.0, Anion Gap 5, BUN 7, Creatinine 0.49 L, Estim Creat Clear Calc 86.55, Est GFR (MDRD) Af Amer 173, Est GFR (MDRD) Non-Af 143, BUN/Creatinine Ratio 14.4, Glucose 164 H, Calcium 8.3 L 07/30/18 03:46: PT 15.0 H, INR 1.2 07/30/18 03:46: APTT 45.7 H 07/30/18 12:32: Specimen Type JUNE, VBG pH 7.33, VBG pO2 24 L, VBG O2 Sat (Calc) 37 L, VBG O2 Content 37 H, VBG Base Excess 9 H, POC Mix VBG pCO2 Pt Tmp 66.9 H 07/30/18 12:35: Specimen Type JUNE, VBG pH 7.33, VBG pO2 26, VBG O2 Sat (Calc) 41 L, VBG O2 Content 38 H, VBG Base Excess 10 H, POC Mix VBG pCO2 Pt Tmp 67.1 H 07/30/18 12:45: Specimen Type ART, pH 7.32 L, Bicarbonate Actual 32.4 H, POC Total CO2 34, Base Excess 6 H, O2 Saturation 95, ABG pCO2 63.0 H, ABG pO2 83 Current Medications Acetaminophen (Tylenol) 650 mg PO Q6H PRN PRN PRN Reason: Mild Pain (scale 0-3)/T>100.7 Last Admin: 07/29/18 16:40 Dose: 650 mg Hydrocodone Bitart/Acetaminophen ([place] 5mg-325mg) 1 tablet PO TID PRN PRN Reason: PAIN Albuterol Sulfate (Ventolin Aerosols) 2.5 mg INHALATION Q2H PRN PRN PRN Reason: SHORTNESS OF BREATH Last Admin: 07/30/18 09:58 Dose: 2.5 mg Albuterol/Ipratropium (Duoneb) 3 ml INHALATION Q4H.RT [facility] Last Admin: 07/30/18 13:51 Dose: 3 ml Aspirin (Ecotrin) 81 mg PO DAILY@0800 [facility] Last Admin: 07/30/18 05:57 Dose: 81 mg Atorvastatin Calcium (Lipitor) 40 mg PO QHS [facility] Last Admin: 07/29/18 21:07 Dose: 40 mg Benzonatate (Tessalon Perle) 100 mg PO TID PRN PRN PRN Reason: COUGH Buspirone HCl (Buspar) 5 mg PO BID [facility] Last Admin: 07/30/18 11:32 Dose: 5 mg Calcium Carbonate (Tums) 1,000 mg PO Q4H PRN PRN PRN Reason: dyspepsia, indigestion Last Admin: 07/29/18 21:05 Dose: 1,000 mg Calcium/Vitamin D (Os-Phillip 500mg + D) [address] [facility] Last Admin: 07/29/18 16:40 Dose: 1 tablet Diltiazem HCl (Cardizem Cd) 120 mg PO DAILY [facility] Last Admin: 07/30/18 05:57 Dose: 120 mg Doxycycline Monohydrate (Doxycycline) 100 mg PO BID [facility] Stop: 08/01/18 22:01 Last Admin: 07/29/18 21:07 Dose: 100 mg Fluticasone Propionate (Flonase Nasal [place]) 1 spray NASAL BID [facility] Last Admin: 07/30/18 11:32 Dose: 1 spray Guaifenesin (Mucinex) 600 mg PO BID [facility] Last Admin: 07/29/18 21:08 Dose: 600 mg Heparin Sodium (Beef Lung) (Heparin 500 Unit/5 Ml (100/Ml)) 500 unit IV UD PRN PRN Reason: HEPARIN FLUSH Heparin Sodium (Porcine) (Heparin Na) 0 unit IV UD PRN; Protocol Last Admin: 07/29/18 15:10 Dose: 1,000 unit Heparin Sodium/Dextrose () 25,000 units in 250 mls @ 10 mls/hr IV .Q25H [facility]; Protocol Last Admin: 07/29/18 15:16 Dose: 10 mls/hr Sodium Chloride () 1,000 mls @ 15 mls/hr IV .Q48H [facility] Last Admin: 07/30/18 05:58 Dose: 15 mls/hr Labetalol HCl (Trandate) 5 mg IV X1 PRN PRN Reason: SBP > 160 prior to sheath pull Stop: 08/01/18 12:44 Loratadine (Claritin) 10 mg PO DAILY PRN PRN Reason: NASAL CONGESTATION Lorazepam (Ativan) 1 mg PO BID PRN PRN PRN Reason: ANXIETY Last Admin: 07/30/18 13:59 Dose: 1 mg Lorazepam (Ativan) 1 mg PO BID [facility] Last Admin: 07/30/18 11:32 Dose: 1 mg Melatonin (Melatonin) 10 mg PO QHS [facility] Last Admin: 07/29/18 21:07 Dose: 10 mg Methylprednisolone (Solu-Medrol) 40 mg IV Q8 [facility] Last Admin: 07/30/18 05:57 Dose: 40 mg Multivitamins (Multivitamin) 1 tablet PO DAILY@0800 [facility] Last Admin: 07/29/18 09:40 Dose: 1 tablet Nitroglycerin (Nitrostat) 0.4 mg SUBLINGUAL Q5M PRN PRN Reason: CHEST PAIN Nutritional Formula (Lactose Free) (Ensure Enlive) 120 ml PO 4X/DAY [facility] Last Admin: 07/30/18 11:33 Dose: Not Given Oxycodone HCl (Oxyir) 5 mg PO Q4H PRN PRN PRN Reason: Moderate Pain (pain scale 4-5) Last Admin: 07/27/18 19:06 Dose: 5 mg Pantoprazole Sodium (Protonix) 40 mg PO DAILY [facility] Last Admin: 07/29/18 09:39 Dose: 40 mg Paroxetine HCl (Paxil) 20 mg PO DAILY [facility] Last Admin: 07/29/18 09:39 Dose: 20 mg Polyethylene Glycol (Miralax) 17 gm PO DAILY PRN PRN Reason: Constipation Senna (Senokot) 1 tablet PO DAILY [facility] Last Admin: 07/29/18 09:39 Dose: 1 tablet Sodium Chloride () 5 - 15 ml IV UD PRN PRN Reason: SALINE FLUSH Last Admin: 07/29/18 21:16 Dose: 10 ml Throat Lozenges (Cepacol Sore Throat Lozenge) 2 lozenge MUCOUS MEM Q2H PRN PRN PRN Reason: SORE THROAT Last Admin: 07/29/18 20:06 Dose: 2 lozenge Trazodone HCl (Desyrel) 25 mg PO QHS [facility] Last Admin: 07/29/18 21:07 Dose: 25 mg Medical Necessity - Tobacco Use Smoking Status: Current every day smoker Assessment/Plan All Active Problems Chest pain (Acute) Abnormal EKG (Acute) Non-STEMI (non-ST elevated myocardial infarction) (Acute) Shortness of breath (Acute) Thrush (Acute) Hyponatremia (Resolved) 1. Unstable angina * slightly elevated troponins * [facility] today showed normal coronaries * continue ASA * follow up with cardiology as outpt 2. Moderate-severe pulmonary HTN * group 3 d/t COPD * DW Dr. English, who request pulm consult for anticoagulation recommendations * Dr. You to see. Code Visit Inpatient E&M: [id number] Subs Hosp L2
--- NOTE | 2018-07-30 17:19 | CPS ---
Received call from Lisa DURAND in regards to pt asking for a breathing rx. Lisa was informed that it wasn't time that she had a PRN rx just after 4:00. I informed Lisa to let nurse know and isaias overton call this therapist if pt needed me. This therapist called pt's Nurse Latasha to also let her know that the call was made from [employer] per pt request for an aerosol rx. The nurse was asked by this therapist if pt's status had changed and if this therapist was needed to come to pt's room. Latasha stated no that nothing had changed that she order pt's dinner tray, had given pt ativan and pt was now able to sit up post cath requirements of laying flat.Nurse also stated pt's saturation was in the 90's.The nurse was asked on several occasions per conversation if this therapist was needed and this therapist was informed by nurse that the therapist was not needed. Nurse was also informed to call if anything changed in pt's status and respiratory needed.
[2018-07-30] MEDS: Paroxetine 20 MG Tablet PO (17:56)
[2018-07-30] MEDS: Multivitamins,Therapeutic Tablet 1 TABLET PO (17:56)
[2018-07-30] MEDS: Calcium Carb/Vitamin D 1 TABLET Tablet PO ×2 (17:56→21:50)
[2018-07-30] MEDS: Pantoprazole Sodium 40 MG Tablet PO (17:56)
[2018-07-30] MEDS: Doxycycline 100 MG CAPSULE PO ×2 (17:56→21:51)
[2018-07-30] MEDS: guaiFENesin 600 MG Tablet PO ×2 (17:56→21:51)
[2018-07-30] MEDS: Senna Tablet 1 TABLET PO (17:57)
[2018-07-30] MEDS: oxyCODONE 5 MG Tablet PO (19:50)
[2018-07-30] MEDS: 0.9% NaCl Peripheral Flush Adult/Peds IV (21:49)
[2018-07-30] MEDS: MELATONIN 10 MG TABLET PO (21:49)
[2018-07-30] MEDS: Atorvastatin Calcium 40 MG Tablet PO (21:50)
[2018-07-30] MEDS: traZODone 50 MG Tablet 25 MG PO (21:50)
[2018-07-31] VITALS (11 sets, daily range): BP systolic 107–131; BP diastolic 72–91; PULSE 72–106; RESP 18–24; TEMP 36.6–37; O2SAT 96–99
[2018-07-31] MEDS: Albuterol 2.5 MG/3 ML VIAL.NEB. INHALATION (01:43)
[2018-07-31] MEDS: LORazepam 1 MG Tablet PO ×3 (03:45→13:24)
[2018-07-31] MEDS: Ipratropium/Albuterol Sulfate 3 ML AMPUL.NEB INHALATION ×4 (03:55→14:43)
[2018-07-31] MEDS: 0.9% NaCl Peripheral Flush Adult/Peds IV (06:54)
[2018-07-31] MEDS: Aspirin E.C. 81 MG Tablet PO (08:04)
[2018-07-31] MEDS: Multivitamins,Therapeutic Tablet 1 TABLET PO (08:04)
[2018-07-31] MEDS: Calcium Carb/Vitamin D 1 TABLET Tablet PO (08:04)
[2018-07-31] MEDS: busPIRone 5 MG Tablet PO (08:05)
[2018-07-31] MEDS: dilTIAZem CD 120 MG Capsule PO (08:05)
[2018-07-31] MEDS: guaiFENesin 600 MG Tablet PO (08:06)
[2018-07-31] MEDS: Doxycycline 100 MG CAPSULE PO (08:06)
[2018-07-31] MEDS: Fluticasone 0.05% 1 SPRAY NASAL.SRY NASAL (08:07)
[2018-07-31] MEDS: Senna Tablet 1 TABLET PO (08:07)
[2018-07-31] MEDS: Paroxetine 20 MG Tablet PO (08:07)
[2018-07-31] MEDS: Pantoprazole Sodium 40 MG Tablet PO (08:07)
[2018-07-31] MEDS: BENZOCAINE/MENTHOL 1 LOZENGE 2 LOZENGE MUCOUS MEM (08:07)
[2018-07-31] MEDS: Heparin Injection (Vial) 5,000 UNIT/ML VIAL 5000 UNIT SC (08:13)
--- NOTE | 2018-07-31 11:17 | PCM.CONS.PUL ---
Problem List (1) Pulmonary hypertension Status: Chronic Comment: Severe per LHC done 07/30/2018 (2) History of left heart catheterization Status: Chronic Comment: Normal coronary arteries; Preserved Left Ventricular systolic function with normal EDP; The patient has pulmonary hypertension which is moderate to severe per LHC done by ARNEL @ [facility] 07/30/18 (3) Chest pain Status: Acute (4) Abnormal EKG Status: Acute (5) Non-STEMI (non-ST elevated myocardial infarction) Status: Acute (6) Osteoporosis Status: Chronic (7) Neuropathy Status: Chronic (8) Restless leg syndrome Status: Chronic (9) Moderate malnutrition Status: Chronic (10) Panic attacks Status: Chronic (11) Generalized anxiety disorder Status: Chronic (12) COPD emphysema severe Status: Chronic (13) Tobacco abuse Status: Chronic (14) PTSD (post-traumatic stress disorder) Status: Chronic (15) Obsessive compulsive disorder Status: Chronic (16) Noncompliance Status: Chronic Reason for Consult Date of Consultation: 07/31/18 Reason for Consultation: Pulmonary hypertension History of Present Illness: The patient is a 48 year old F, with past medical history listed below, who presented to [facility] on 07/27/2018 secondary to chest pain. Patient does have a complex past medical history including a history of tracheostomy in 2018 and a current smoker who currently follows with Dr. Tilley as an outpatient. Patient reportedly was living in an assisted living center. Patient has had multiple COPD exacerbations in the past and had developed severe shortness of breath that was not relieved with typical measures, so patient came to the ER. Initial EKG showed new anterior and inferior T wave inversions with a initial troponin of 0.10. Patient was admitted to the floor for further evaluation. On 07/30/2018, the patient underwent a cardiac catheterization consistent with pulmonary arterial hypertension. A consult has been requested to give recommendations as to possible anticoagulation. Right heart catheterization results were reviewed and patient does have findings consistent with type I pulmonary hypertension. Patient reportedly has had an extensive workup as an outpatient at [facility]. Patient reports that she does have a history of a possible autoimmune disease. Patient reportedly has talked with her primary food assembler kitchen about lung transplantation and it was determined that she would not survive. Patient does report a long history of scoliosis since adolescence that she believes is relatively stable. Patient does report 2 miscarriages in the first trimester previously. Patient does not report any history of pulmonary embolism or DVT. Patient is unaware if she is ever had a VQ scan. Patient reports she is nonambulatory at baseline. Patient does wear 3 L nasal cannula at all times. Patient states that she has a wheelchair at home. Patient also has a pulse oximeter. Patient states that her saturations are typically in the mid 90s. Past Medical History Past Medical History (Chronic Problems): Chronic Problems (Last Updated 07/30/18 @ 21:15 by Nichole Akbar) Pulmonary hypertension (Chronic) Severe per C done 07/30/2018 History of left heart catheterization (Chronic 07/30/18) Normal coronary arteries; Preserved Left Ventricular systolic function with normal EDP; The patient has pulmonary hypertension which is moderate to severe per [facility] done by DJN @ [facility] 07/30/18 COPD exacerbation (Chronic) Osteoporosis (Chronic) Neuropathy (Chronic) Restless leg syndrome (Chronic) Moderate malnutrition (Chronic) Panic attacks (Chronic) Generalized anxiety disorder (Chronic) COPD emphysema severe (Chronic) Tobacco abuse (Chronic) Underweight (Chronic) PTSD (post-traumatic stress disorder) (Chronic) Obsessive compulsive disorder (Chronic) Noncompliance (Chronic) Medical History: Medical History (Last Updated 07/30/18 @ 21:15 by Nichole Akbar) Pulmonary hypertension (Chronic) I27.20 Severe per [facility] done 07/30/2018 Allergies sulfasalazine Allergy (Verified 07/27/18 12:15) Hives aspartame [From Nutrasweet Aspartame] Adverse Reaction (Verified 07/27/18 12:15) light headedness and nausea light headedness and nausea citric acid Adverse Reaction (Verified 07/27/18 12:15) Mucosal lesions docusate sodium [From Colace] Adverse Reaction (Verified 07/27/18 12:15) dizzy, lightheaded, hallucinations dizzy, light headed, hallucinations fluoxetine Adverse Reaction (Verified 07/27/18 12:15) made me mean made me mean nicotine polacrilex [From Nicorette] Adverse Reaction (Verified 07/27/18 12:15) dizzy spells, light headedness dizzy spells, light headedness phenytoin sodium [From Dilantin] Adverse Reaction (Verified 07/27/18 12:15) made me feel drugged up used for scleroderma, made me feel drugged up phenytoin sodium extended [From Dilantin] Adverse Reaction (Verified 07/27/18 12:15) made me feel drugged up Home Medications: Ambulatory Orders Medication Instructions Recorded Ipratropium/Albuterol Sulfate 3 ml INHALATION 4X/DAY 03/28/16 [Duoneb] Budesonide Aerosol [Pulmicort 0.5 mg INHALATION BID 07/27/18 Aerosol] Calcium Carbonate [Calcium] 500 mg PO TID 07/27/18 Calcium Carbonate/Vitamin D3 1 tab PO BID 07/27/18 [Calcium 600-Vit D3 200 Tablet] Guaifenesin [Mucus Relief ER] 600 mg PO BID 07/27/18 Lactobacillus Acidophilus 1 each PO BID 07/27/18 [Acidophilus] Loratadine 10 mg PO DAILY 07/27/18 Lorazepam [Ativan] 1 mg PO BID 07/27/18 Melatonin 10 mg PO QHS 07/27/18 Multivitamins,Therapeutic 1 tablet PO DAILY 07/27/18 [Multivitamin] Omeprazole 40 mg PO DAILY 07/27/18 Paroxetine HCl 20 mg PO DAILY 07/27/18 Polyvinyl Alcohol [Artificial 15 ml OP 4X/DAY 07/27/18 Tears] Prednisone 10 mg PO DAILY 07/27/18 Senna [Senokot] 2 tablet PO BID 07/27/18 Trazodone HCl 25 mg PO QHS 07/27/18 busPIRone [Buspar] 7.5 mg PO BID 07/27/18 Fluticasone 0.05% [Flonase Nasal 1 spray NASAL BID PRN 07/28/18 [place]] Surgical History: Surgical History (Last Updated 07/30/18 @ 21:15 by Nichole Akbar) History of left heart catheterization (Chronic) Onset Date: 07/30/18 Z98.890 Normal coronary arteries; Preserved Left Ventricular systolic function with normal EDP; The patient has pulmonary hypertension which is moderate to severe per C done by ARNEL @ [facility] 07/30/18 Surgical History: noncontributory Smoking Status: Current every day smoker - *Family History Maternal History Items: - - Scoliosis and possible bipolar disorder Paternal History Items: Asthma, COPD, Diabetes, Dementia, Heart Disease, Hypertension Sibling History Items: Asthma Offspring History Items: Asthma Review of Systems Comment: See HPI, otherwise negative x10 systems. Patient Problems: Active and Suspected Problems (Last Updated 07/30/18 @ 21:15 by Nichole Akbar) Chest pain (Acute) Abnormal EKG (Acute) Non-STEMI (non-ST elevated myocardial infarction) (Acute) Objective: Echocardiogram shows an EF of 65% with no significant valvular abnormalities. Patient does have a reported right ventricular systolic pressure of 34 mmHg. However, right heart catheterization showed a pulmonary artery pressure of 65/23 and a PVR of 126. No pulmonary function tests are available for review. Chest x-ray does show decreased markings consistent with emphysematous changes. - Physical Exam General: Alert, Oriented x3, Cooperative, - - Mild conversational dyspnea. Appears older than stated age HEENT: Atraumatic, PERRLA, EOMI, Normocephalic, - - No scleral icterus or injection noted. Oral: Moist Mucosa, No Gingival or Mucosal Lesions/ Ulcerations Neck: Supple, No Nodes, Trachea Midline, JVD, Right Lungs: No rhonchi, No rales, Diminished, Wheezes - Sporadic Cardiovascular: Normal S1, Normal S2, No murmurs, No rub noted, No Gallop, Tachycardic Abdomen: Bowel Sounds Present, Soft, Non Tender, Non-Distended Extremities: No cyanosis, No edema, Capillary Refill Less than 3 Seconds, Clubbing Skin: No rashes Musculoskeletal: No Tenderness to Palpation of Joints or Extremities Lymphatic: No Cervical, Supraclavicular, or Inguinal Adenopathy Neurological: Cranial nerves II-XII grossly intact, Neuro grossly intact Psych/Mental Status: Anxious, Flat Affect Vital Signs Temp Pulse Resp BP Pulse Ox 37.0 C 106 H 24 H 107/73 97 07/31/18 09:30 07/31/18 11:01 07/31/18 10:37 07/31/18 09:30 07/31/18 10:37 Oxygen Flow Rate (L/min) 3 Oxygen Delivery Method Nasal Cannula Weight: 39.916 kg Body Mass Index (BMI) 14.1 Intake and Output for Last 24 Hours 07/29/18 07/30/18 07/31/18 23:59 23:59 23:59 Intake Total 1751.4 / 1751.4 406.8 / 406.8 200 / 200 Output Total 3025 / 3025 1125 / 1125 200 / 200 Balance -1273.6 / -1273.6 -718.2 / -718.2 0 / 0 Microbiology Past 72 Hours 07/27/18 13:45 Blood Culture - Preliminary Blood Culture (Wb) #2 - Right Forearm No growth in 48 hours. 07/27/18 13:40 Blood Culture - Preliminary Blood Culture (Wb) #2 - Anticubital Left No growth in 48 hours. 07/27/18 16:38 Respiratory Panel (PCR) - Final Mucosa - Nasopharyngeal Laboratory Tests Past 24 Hrs 07/30/18 07/30/18 07/30/18 12:32 12:35 12:45 Specimen Type JUNE JUNE ART pH 7.32 L Bicarbonate Actual 32.4 H POC Total CO2 34 Base Excess 6 H O2 Saturation 95 ABG pCO2 63.0 H ABG pO2 83 VBG pH 7.33 7.33 VBG pO2 24 L 26 VBG O2 Sat (Calc) 37 L 41 L VBG O2 Content 37 H 38 H VBG Base Excess 9 H 10 H POC Mix VBG pCO2 Pt Tmp 66.9 H 67.1 H Assessment/Plan All Active Problems (Last Updated 07/30/18 @ 21:15 by Nichole Akbar) Chest pain (Acute) Abnormal EKG (Acute) Non-STEMI (non-ST elevated myocardial infarction) (Acute) Shortness of breath (Acute) Thrush (Acute) Hyponatremia (Resolved) RECOMMENDATIONS: 1. Oxygen to keep saturations greater than 90% at all times 2. Initiate systemic anticoagulation with a 10 a inhibitor 3. Outpatient follow-up with primary food assembler kitchen 4. No diuretic therapy at this time 5. Likely okay to transition to prednisone therapy and wean over 12-14 days from my perspective IMPRESSIONS: 1. Pulmonary arterial hypertension, type I versus type III She likely has multifactorial etiology. Patient does have a history of advanced COPD by her report and emphysematous changes on chest imaging. Patient also has a report of previous miscarriages. Patient is already on supplemental oxygen. Patient is reportedly questionable on previous autoimmune workup. Reasonable to initiate patient on therapy for COPD exacerbation. Patient can likely be transition to prednisone therapy and weaned over 12-14 days from my perspective. Anticoagulation empirically would be recommended. Patient should follow-up with pulmonary arterial hypertension specialist as an outpatient. However, given patient's history of noncompliance, vasoactive medications are likely not indicated. Would not recommend initiation of sildenafil at this time given incomplete workup. 2. Advanced COPD/anxiety/severe protein calorie malnutrition/coronary artery disease status post non-ST elevation [place] Complicates care, management, recovery and prognosis. Patient can likely be transitioned over to prednisone therapy and wean over the next 12-14 days. Code Visit Inpatient E&M: 28277 Init Hosp L3
--- NOTE | 2018-07-31 11:28 | CON.PCM_ITS ---
Problem List (1) Pulmonary hypertension Status: Chronic Comment: Severe per [facility] done 07/30/2018 (2) History of left heart catheterization Status: Chronic Comment: Normal coronary arteries; Preserved Left Ventricular systolic function with normal EDP; The patient has pulmonary hypertension which is moderate to severe per LHC done by ARNEL @ [facility] 07/30/18 (3) Chest pain Status: Acute (4) Abnormal EKG Status: Acute (5) Non-STEMI (non-ST elevated myocardial infarction) Status: Acute (6) Osteoporosis Status: Chronic (7) Neuropathy Status: Chronic (8) Restless leg syndrome Status: Chronic (9) Moderate malnutrition Status: Chronic (10) Panic attacks Status: Chronic (11) Generalized anxiety disorder Status: Chronic (12) COPD emphysema severe Status: Chronic (13) Tobacco abuse Status: Chronic (14) PTSD (post-traumatic stress disorder) Status: Chronic (15) Obsessive compulsive disorder Status: Chronic (16) Noncompliance Status: Chronic Reason for Consult Date of Consultation: 07/31/18 Reason for Consultation: Pulmonary hypertension History of Present Illness: The patient is a 48 year old F, with past medical history listed below, who presented to [facility] on 07/27/2018 secondary to chest pain. Patient does have a complex past medical history including a history of tracheostomy in 2018 and a current smoker who currently follows with Dr. Tilley as an outpatient. Patient reportedly was living in an assisted living center. Patient has had multiple COPD exacerbations in the past and had developed severe shortness of breath that was not relieved with typical measures, so patient came to the ER. Initial EKG showed new anterior and inferior T wave inversions with a initial troponin of 0.10. Patient was admitted to the floor for further evaluation. On 07/30/2018, the patient underwent a cardiac catheterization consistent with pulmonary arterial hypertension. A consult has been requested to give recommendations as to possible anticoagulation. Right heart catheterization results were reviewed and patient does have findings consistent with type I pulmonary hypertension. Patient reportedly has had an extensive workup as an outpatient at [facility]. Patient reports that she does have a history of a possible autoimmune disease. Patient reportedly has talked with her primary imaging technologist about lung transplantation and it was determined that she would not survive. Patient does report a long history of scoliosis since adolescence that she believes is relatively stable. Patient does report 2 miscarriages in the first trimester previously. Patient does not report any history of pulmonary embolism or DVT. Patient is unaware if she is ever had a VQ scan. Patient reports she is nonambulatory at baseline. Patient does wear 3 L nasal cannula at all times. Patient states that she has a wheelchair at home. Patient also has a pulse oximeter. Patient states that her saturations are typically in the mid 90s. Past Medical History Past Medical History (Chronic Problems): Chronic Problems (Last Updated 07/30/18 @ 21:15 by Nichole Akbar) Pulmonary hypertension (Chronic) Severe per C done 07/30/2018 History of left heart catheterization (Chronic 07/30/18) Normal coronary arteries; Preserved Left Ventricular systolic function with normal EDP; The patient has pulmonary hypertension which is moderate to severe per [facility] done by DJN @ [facility] 07/30/18 COPD exacerbation (Chronic) Osteoporosis (Chronic) Neuropathy (Chronic) Restless leg syndrome (Chronic) Moderate malnutrition (Chronic) Panic attacks (Chronic) Generalized anxiety disorder (Chronic) COPD emphysema severe (Chronic) Tobacco abuse (Chronic) Underweight (Chronic) PTSD (post-traumatic stress disorder) (Chronic) Obsessive compulsive disorder (Chronic) Noncompliance (Chronic) Medical History: Medical History (Last Updated 07/30/18 @ 21:15 by Nichole Akbar) Pulmonary hypertension (Chronic) I27.20 Severe per [facility] done 07/30/2018 Allergies sulfasalazine Allergy (Verified 07/27/18 12:15) Hives aspartame [From Nutrasweet Aspartame] Adverse Reaction (Verified 07/27/18 12:15) light headedness and nausea light headedness and nausea citric acid Adverse Reaction (Verified 07/27/18 12:15) Mucosal lesions docusate sodium [From Colace] Adverse Reaction (Verified 07/27/18 12:15) dizzy, lightheaded, hallucinations dizzy, light headed, hallucinations fluoxetine Adverse Reaction (Verified 07/27/18 12:15) made me mean made me mean nicotine polacrilex [From Nicorette] Adverse Reaction (Verified 07/27/18 12:15) dizzy spells, light headedness dizzy spells, light headedness phenytoin sodium [From Dilantin] Adverse Reaction (Verified 07/27/18 12:15) made me feel drugged up used for scleroderma, made me feel drugged up phenytoin sodium extended [From Dilantin] Adverse Reaction (Verified 07/27/18 12:15) made me feel drugged up Home Medications: Ambulatory Orders Medication Instructions Recorded Ipratropium/Albuterol Sulfate 3 ml INHALATION 4X/DAY 03/28/16 [Duoneb] Budesonide Aerosol [Pulmicort 0.5 mg INHALATION BID 07/27/18 Aerosol] Calcium Carbonate [Calcium] 500 mg PO TID 07/27/18 Calcium Carbonate/Vitamin D3 1 tab PO BID 07/27/18 [Calcium 600-Vit D3 200 Tablet] Guaifenesin [Mucus Relief ER] 600 mg PO BID 07/27/18 Lactobacillus Acidophilus 1 each PO BID 07/27/18 [Acidophilus] Loratadine 10 mg PO DAILY 07/27/18 Lorazepam [Ativan] 1 mg PO BID 07/27/18 Melatonin 10 mg PO QHS 07/27/18 Multivitamins,Therapeutic 1 tablet PO DAILY 07/27/18 [Multivitamin] Omeprazole 40 mg PO DAILY 07/27/18 Paroxetine HCl 20 mg PO DAILY 07/27/18 Polyvinyl Alcohol [Artificial 15 ml OP 4X/DAY 07/27/18 Tears] Prednisone 10 mg PO DAILY 07/27/18 Senna [Senokot] 2 tablet PO BID 07/27/18 Trazodone HCl 25 mg PO QHS 07/27/18 busPIRone [Buspar] 7.5 mg PO BID 07/27/18 Fluticasone 0.05% [Flonase Nasal 1 spray NASAL BID PRN 07/28/18 [place]] Surgical History: Surgical History (Last Updated 07/30/18 @ 21:15 by Nichole Akbar) History of left heart catheterization (Chronic) Onset Date: 07/30/18 Z98.890 Normal coronary arteries; Preserved Left Ventricular systolic function with normal EDP; The patient has pulmonary hypertension which is moderate to severe per C done by ARNEL @ [facility] 07/30/18 Surgical History: noncontributory Smoking Status: Current every day smoker - *Family History Maternal History Items: - - Scoliosis and possible bipolar disorder Paternal History Items: Asthma, COPD, Diabetes, Dementia, Heart Disease, Hypertension Sibling History Items: Asthma Offspring History Items: Asthma Review of Systems Comment: See HPI, otherwise negative x10 systems. Patient Problems: Active and Suspected Problems (Last Updated 07/30/18 @ 21:15 by Nichole Akbar) Chest pain (Acute) Abnormal EKG (Acute) Non-STEMI (non-ST elevated myocardial infarction) (Acute) Objective: Echocardiogram shows an EF of 65% with no significant valvular abnormalities. Patient does have a reported right ventricular systolic pressure of 34 mmHg. However, right heart catheterization showed a pulmonary artery pressure of 65/23 and a PVR of 126. No pulmonary function tests are available for review. Chest x-ray does show decreased markings consistent with emphysematous changes. - Physical Exam General: Alert, Oriented x3, Cooperative, - - Mild conversational dyspnea. Appears older than stated age HEENT: Atraumatic, PERRLA, EOMI, Normocephalic, - - No scleral icterus or injection noted. Oral: Moist Mucosa, No Gingival or Mucosal Lesions/ Ulcerations Neck: Supple, No Nodes, Trachea Midline, JVD, Right Lungs: No rhonchi, No rales, Diminished, Wheezes - Sporadic Cardiovascular: Normal S1, Normal S2, No murmurs, No rub noted, No Gallop, Tachycardic Abdomen: Bowel Sounds Present, Soft, Non Tender, Non-Distended Extremities: No cyanosis, No edema, Capillary Refill Less than 3 Seconds, Clubbing Skin: No rashes Musculoskeletal: No Tenderness to Palpation of Joints or Extremities Lymphatic: No Cervical, Supraclavicular, or Inguinal Adenopathy Neurological: Cranial nerves II-XII grossly intact, Neuro grossly intact Psych/Mental Status: Anxious, Flat Affect Vital Signs Temp Pulse Resp BP Pulse Ox 37.0 C 106 H 24 H 107/73 97 07/31/18 09:30 07/31/18 11:01 07/31/18 10:37 07/31/18 09:30 07/31/18 10:37 Oxygen Flow Rate (L/min) 3 Oxygen Delivery Method Nasal Cannula Weight: 39.916 kg Body Mass Index (BMI) 14.1 Intake and Output for Last 24 Hours 07/29/18 07/30/18 07/31/18 23:59 23:59 23:59 Intake Total 1751.4 / 1751.4 406.8 / 406.8 200 / 200 Output Total 3025 / 3025 1125 / 1125 200 / 200 Balance -1273.6 / -1273.6 -718.2 / -718.2 0 / 0 Microbiology Past 72 Hours 07/27/18 13:45 Blood Culture - Preliminary Blood Culture (Wb) #2 - Right Forearm No growth in 48 hours. 07/27/18 13:40 Blood Culture - Preliminary Blood Culture (Wb) #2 - Anticubital Left No growth in 48 hours. 07/27/18 16:38 Respiratory Panel (PCR) - Final Mucosa - Nasopharyngeal Laboratory Tests Past 24 Hrs 07/30/18 07/30/18 07/30/18 12:32 12:35 12:45 Specimen Type JUNE JUNE ART pH 7.32 L Bicarbonate Actual 32.4 H POC Total CO2 34 Base Excess 6 H O2 Saturation 95 ABG pCO2 63.0 H ABG pO2 83 VBG pH 7.33 7.33 VBG pO2 24 L 26 VBG O2 Sat (Calc) 37 L 41 L VBG O2 Content 37 H 38 H VBG Base Excess 9 H 10 H POC Mix VBG pCO2 Pt Tmp 66.9 H 67.1 H Assessment/Plan All Active Problems (Last Updated 07/30/18 @ 21:15 by Nichole Akbar) Chest pain (Acute) Abnormal EKG (Acute) Non-STEMI (non-ST elevated myocardial infarction) (Acute) Shortness of breath (Acute) Thrush (Acute) Hyponatremia (Resolved) RECOMMENDATIONS: 1. Oxygen to keep saturations greater than 90% at all times 2. Initiate systemic anticoagulation with a 10 a inhibitor 3. Outpatient follow-up with primary imaging technologist 4. No diuretic therapy at this time 5. Likely okay to transition to prednisone therapy and wean over 12-14 days from my perspective IMPRESSIONS: 1. Pulmonary arterial hypertension, type I versus type III She likely has multifactorial etiology. Patient does have a history of advanced COPD by her report and emphysematous changes on chest imaging. Patient also has a report of previous miscarriages. Patient is already on supplemental oxygen. Patient is reportedly questionable on previous autoimmune workup. Reasonable to initiate patient on therapy for COPD exacerbation. Patient can likely be transition to prednisone therapy and weaned over 12-14 days from my perspective. Anticoagulation empirically would be recommended. Patient should follow-up with pulmonary arterial hypertension specialist as an outpatient. However, given patient's history of noncompliance, vasoactive medications are likely not indicated. Would not recommend initiation of sildenafil at this time given incomplete workup. 2. Advanced COPD/anxiety/severe protein calorie malnutrition/coronary artery disease status post non-ST elevation [place] Complicates care, management, recovery and prognosis. Patient can likely be transitioned over to prednisone therapy and wean over the next 12-14 days. Code Visit Inpatient E&M: 04673 Init Hosp L3
--- NOTE | 2018-07-31 12:06 | DCINST_ITS ---
- Discharge Diagnoses Current Active Problems: Current Active and Chronic Problems (Last Updated 07/30/18 @ 21:15 by Nichole Akbar) Pulmonary hypertension (Chronic) Severe per LHC done 07/30/2018 History of left heart catheterization (Chronic 07/30/18) Normal coronary arteries; Preserved Left Ventricular systolic function with normal EDP; The patient has pulmonary hypertension which is moderate to severe per LHC done by ARNEL @ [facility] 07/30/18 Chest pain (Acute) Abnormal EKG (Acute) Non-STEMI (non-ST elevated myocardial infarction) (Acute) COPD exacerbation (Chronic) You will use the following diet at home:: Cardiac Your food should be the consistency of: Regular Your liquids should be the consistency of: Regular/Thin Discharge Activity: - - activity as tolerated Call your doctor if you observe: Fever of 101 or Higher, Shortness of breath Allergies/Adverse Reactions: Allergies sulfasalazine Allergy (Verified 07/27/18 12:15) Hives aspartame [From Nutrasweet Aspartame] Adverse Reaction (Verified 07/27/18 12:15) light headedness and nausea light headedness and nausea citric acid Adverse Reaction (Verified 07/27/18 12:15) Mucosal lesions docusate sodium [From Colace] Adverse Reaction (Verified 07/27/18 12:15) dizzy, lightheaded, hallucinations dizzy, light headed, hallucinations fluoxetine Adverse Reaction (Verified 07/27/18 12:15) made me mean made me mean nicotine polacrilex [From Nicorette] Adverse Reaction (Verified 07/27/18 12:15) dizzy spells, light headedness dizzy spells, light headedness phenytoin sodium [From Dilantin] Adverse Reaction (Verified 07/27/18 12:15) made me feel drugged up used for scleroderma, made me feel drugged up phenytoin sodium extended [From Dilantin] Adverse Reaction (Verified 07/27/18 12:15) made me feel drugged up Medications to take at Discharge Ipratropium/Albuterol Sulfate [Duoneb] 3 ml INHALATION 4X/DAY 03/28/16 Budesonide Aerosol [Pulmicort Respules] 0.5 mg INHALATION BID 07/27/18 Calcium Carbonate [Calcium] 500 mg PO TID 07/27/18 Calcium Carbonate/Vitamin D3 [Calcium 600-Vit D3 200 Tablet] 1 tab PO BID 07/27/18 Guaifenesin [Mucus Relief ER] 600 mg PO BID 07/27/18 Lactobacillus Acidophilus [Acidophilus] 1 each PO BID 07/27/18 Loratadine 10 mg PO DAILY 07/27/18 Lorazepam [Ativan] 1 mg PO BID 07/27/18 Melatonin 10 mg PO QHS 07/27/18 Multivitamins,Therapeutic [Multivitamin] 1 tablet PO DAILY 07/27/18 Omeprazole 40 mg PO DAILY 07/27/18 Paroxetine HCl 20 mg PO DAILY 07/27/18 Polyvinyl Alcohol [Artificial Tears] 15 ml OP 4X/DAY 07/27/18 Prednisone 10 mg PO DAILY 07/27/18 Senna [Senokot] 2 tablet PO BID 07/27/18 Trazodone HCl 25 mg PO QHS 07/27/18 busPIRone [Buspar] 7.5 mg PO BID 07/27/18 Fluticasone 0.05% [Flonase Nasal [place]] 1 spray NASAL BID PRN 07/28/18 Acetaminophen [Tylenol Tablet] 500 mg PO Q6H PRN PRN tablet 07/31/18 Apixaban [Eliquis] 5 mg PO BID #75 tablet 07/31/18 Aspirin E.C. [Ecotrin] 81 mg PO DAILY@0800 tablet 07/31/18 Atorvastatin Calcium [Lipitor] 40 mg PO QHS #30 tablet 07/31/18 Diltiazem CD [Cardizem CD] 120 mg PO DAILY #30 capsule 07/31/18 Ensure Enlive 120 ml PO 4X/DAY #30 liquid 07/31/18 Guaifenesin [Mucinex] 600 mg PO BID #10 tablet 07/31/18 Prednisone 10 mg PO DAILY #30 tablet 07/31/18 The following prescriptions were given: Atorvastatin Calcium [Lipitor] 40 mg PO QHS #30 tablet Diltiazem CD [Cardizem CD] 120 mg PO DAILY #30 capsule Prednisone 10 mg PO DAILY #30 tablet Apixaban [Eliquis] 5 mg PO BID #75 tablet Guaifenesin [Mucinex] 600 mg PO BID #10 tablet Ensure Enlive 120 ml PO 4X/DAY #30 liquid Primary Care Physician: Rdudy Mari DO [Primary Care Provider] - Within 2 Weeks Test Results: Test results from this visit will be discussed in further detail at your follow- up appointment, if applicable. Please Follow Up With: Christiano Tilley MD When: 4-6 weeks Proposed Discharge Date: 07/31/18
--- NOTE | 2018-07-31 12:06 | PCM.DC.SUM ---
Discharge Date and Diagnosis - Problem List Patient Problems: Active and Suspected Problems (Last Updated 07/30/18 @ 21:15 by Nichole Akbar) COPD exacerbation (Acute) Chest pain (Acute) Abnormal EKG (Acute) Non-STEMI (non-ST elevated myocardial infarction) (Acute) Date of Admission: 07/27/18 Date of Discharge: 07/31/18 - Primary Discharge Diagnosis Active and Suspected Problems (Last Updated 07/30/18 @ 21:15 by Nichole Akbar) Chest pain (Acute) Abnormal EKG (Acute) Non-STEMI (non-ST elevated myocardial infarction) (Acute) - Secondary Discharge Diagnosis Chronic Problems (Last Updated 07/30/18 @ 21:15 by Nichole Akbar) Pulmonary hypertension (Chronic) Severe per LHC done 07/30/2018 History of left heart catheterization (Chronic 07/30/18) Normal coronary arteries; Preserved Left Ventricular systolic function with normal EDP; The patient has pulmonary hypertension which is moderate to severe per LHC done by ARNEL @ [facility] 07/30/18 COPD exacerbation (Chronic) Osteoporosis (Chronic) Neuropathy (Chronic) Restless leg syndrome (Chronic) Moderate malnutrition (Chronic) Panic attacks (Chronic) Generalized anxiety disorder (Chronic) COPD emphysema severe (Chronic) Tobacco abuse (Chronic) Underweight (Chronic) PTSD (post-traumatic stress disorder) (Chronic) Obsessive compulsive disorder (Chronic) Noncompliance (Chronic) Hospital Course and Treatment Imaging Results: Clinical Impression(s) from Imaging Studies Chest X-Ray 07/27/18 12:33 IMPRESSION: Stable examination. Marked degree of hyperinflation as well as decreased bilateral bronchovascular markings suggestive of severe emphysema with possible bullous formation in both lungs. Electronically Signed: Jameson Navarro, at 12:51 EDT , Service support , [facility], Pulmonology. Operations: None Procedures: 2-D Echocardiogram, Cardiac catheterization Summary of Care Provided: The patient is a 48 year old F resents with shortness of breath and chest pain. Patient was diagnosed with COPD exacerbation and started on bronchodilators, steroids and antibiotics. Patient also had elevated troponins and cardiology was consulted. Patient underwent a left heart catheterization on the that showed normal coronaries but did show moderate to severe pulmonary hypertension. Pulmonary was consulted to inquire about anticoagulation. Pulmonary recommended Eliquis and follow-up with her normal chief psychologist, Dr. Tilley, for further evaluation and potential transfer to a pulmonary hypertension clinic. Patient will complete taper of prednisone as outpatient and will be on Eliquis. [] Patient Problems: Active and Suspected Problems (Last Updated 07/30/18 @ 21:15 by Nichole Akbar) COPD exacerbation (Acute) Chest pain (Acute) Abnormal EKG (Acute) Non-STEMI (non-ST elevated myocardial infarction) (Acute) - Physical Exam General: Alert, No apparent distress, - - Appears much older than stated age HEENT: Atraumatic, Normocephalic Oral: Moist Mucosa, No Gingival or Mucosal Lesions/ Ulcerations Neck: No Nodes, Thyroid Normal Size and Texture Lungs: Clear to auscultation, Diminished Cardiovascular: Regular rate, Regular Rhythm, Normal S1, Normal S2 Abdomen: Bowel Sounds Present, Soft, Non Tender, Non-Distended, No Hepato-splenomegaly Extremities: No edema, No Calf Tenderness Vital Signs Temp Pulse Resp BP Pulse Ox 37.0 C 106 H 24 H 107/73 97 07/31/18 09:30 07/31/18 11:01 07/31/18 10:37 07/31/18 09:30 07/31/18 10:37 Oxygen Flow Rate (L/min) 3 Oxygen Delivery Method Nasal Cannula Weight: 39.916 kg Body Mass Index (BMI) 14.1 Intake and Output for Last 24 Hours 07/29/18 07/30/18 07/31/18 23:59 23:59 23:59 Intake Total 1751.4 / 1751.4 406.8 / 406.8 440 / 440 Output Total 3025 / 3025 1125 / 1125 900 / 900 Balance -1273.6 / -1273.6 -718.2 / -718.2 -460 / -460 Microbiology Past 72 Hours 07/27/18 13:45 Blood Culture - Preliminary Blood Culture (Wb) #2 - Right Forearm No growth in 48 hours. 07/27/18 13:40 Blood Culture - Preliminary Blood Culture (Wb) #2 - Anticubital Left No growth in 48 hours. 07/27/18 16:38 Respiratory Panel (PCR) - Final Mucosa - Nasopharyngeal Laboratory Tests Past 24 Hrs 07/30/18 07/30/18 07/30/18 12:32 12:35 12:45 Specimen Type JUNE JUNE ART pH 7.32 L Bicarbonate Actual 32.4 H POC Total CO2 34 Base Excess 6 H O2 Saturation 95 ABG pCO2 63.0 H ABG pO2 83 VBG pH 7.33 7.33 VBG pO2 24 L 26 VBG O2 Sat (Calc) 37 L 41 L VBG O2 Content 37 H 38 H VBG Base Excess 9 H 10 H POC Mix VBG pCO2 Pt Tmp 66.9 H 67.1 H Discharge Diet: Low fat/ Low Cholesterol Discharge Activity: - - activity as tolerated Call your doctor if you observe: Fever of 101 or Higher, Shortness of breath Home Medications: Medications to take at Discharge Ipratropium/Albuterol Sulfate [Duoneb] 3 ml INHALATION 4X/DAY 03/28/16 Budesonide Aerosol [Pulmicort Respules] 0.5 mg INHALATION BID 07/27/18 Calcium Carbonate [Calcium] 500 mg PO TID 07/27/18 Calcium Carbonate/Vitamin D3 [Calcium 600-Vit D3 200 Tablet] 1 tab PO BID 07/27/18 Guaifenesin [Mucus Relief ER] 600 mg PO BID 07/27/18 Lactobacillus Acidophilus [Acidophilus] 1 each PO BID 07/27/18 Loratadine 10 mg PO DAILY 07/27/18 Lorazepam [Ativan] 1 mg PO BID 07/27/18 Melatonin 10 mg PO QHS 07/27/18 Multivitamins,Therapeutic [Multivitamin] 1 tablet PO DAILY 07/27/18 Omeprazole 40 mg PO DAILY 07/27/18 Paroxetine HCl 20 mg PO DAILY 07/27/18 Polyvinyl Alcohol [Artificial Tears] 15 ml OP 4X/DAY 07/27/18 Prednisone 10 mg PO DAILY 07/27/18 Senna [Senokot] 2 tablet PO BID 07/27/18 Trazodone HCl 25 mg PO QHS 07/27/18 busPIRone [Buspar] 7.5 mg PO BID 07/27/18 Fluticasone 0.05% [Flonase Nasal [place]] 1 spray NASAL BID PRN 07/28/18 Acetaminophen [Tylenol Tablet] 500 mg PO Q6H PRN PRN tablet 07/31/18 Apixaban [Eliquis] 5 mg PO BID #75 tablet 07/31/18 Aspirin E.C. [Ecotrin] 81 mg PO DAILY@0800 tablet 07/31/18 Atorvastatin Calcium [Lipitor] 40 mg PO QHS #30 tablet 07/31/18 Diltiazem CD [Cardizem CD] 120 mg PO DAILY #30 capsule 07/31/18 Ensure Enlive 120 ml PO 4X/DAY #30 liquid 07/31/18 Guaifenesin [Mucinex] 600 mg PO BID #10 tablet 07/31/18 Prednisone 10 mg PO DAILY #30 tablet 07/31/18 Following Prescrptions Were Given to Patient: Atorvastatin Calcium [Lipitor] 40 mg PO QHS #30 tablet Diltiazem CD [Cardizem CD] 120 mg PO DAILY #30 capsule Prednisone 10 mg PO DAILY #30 tablet Apixaban [Eliquis] 5 mg PO BID #75 tablet Guaifenesin [Mucinex] 600 mg PO BID #10 tablet Ensure Enlive 120 ml PO 4X/DAY #30 liquid Primary Care Physician: Ruddy Mari DO [Primary Care Provider] - Within 2 Weeks Please Follow Up With: Christiano Tilley MD When: 4-6 weeks Disposition: Asstd Living/Non-Skill [place] Minutes spent on discharge:: 35 Patient Condition:: Fair Medical Necessity - Tobacco Use Smoking Status: Current every day smoker Meaningful Use Info Meaningful Use Diagnoses (Choose all that apply): None applicable Code Visit Inpatient E&M: 36368 Disch Hosp
--- NOTE | 2018-07-31 12:10 | DS.PCM_ITS ---
Discharge Date and Diagnosis - Problem List Patient Problems: Active and Suspected Problems (Last Updated 07/30/18 @ 21:15 by Nichole Akbar) COPD exacerbation (Acute) Chest pain (Acute) Abnormal EKG (Acute) Non-STEMI (non-ST elevated myocardial infarction) (Acute) Date of Admission: 07/27/18 Date of Discharge: 07/31/18 - Primary Discharge Diagnosis Active and Suspected Problems (Last Updated 07/30/18 @ 21:15 by Nichole Akbar) Chest pain (Acute) Abnormal EKG (Acute) Non-STEMI (non-ST elevated myocardial infarction) (Acute) - Secondary Discharge Diagnosis Chronic Problems (Last Updated 07/30/18 @ 21:15 by Nichole Akbar) Pulmonary hypertension (Chronic) Severe per LHC done 07/30/2018 History of left heart catheterization (Chronic 07/30/18) Normal coronary arteries; Preserved Left Ventricular systolic function with normal EDP; The patient has pulmonary hypertension which is moderate to severe per LHC done by ARNEL @ [facility] 07/30/18 COPD exacerbation (Chronic) Osteoporosis (Chronic) Neuropathy (Chronic) Restless leg syndrome (Chronic) Moderate malnutrition (Chronic) Panic attacks (Chronic) Generalized anxiety disorder (Chronic) COPD emphysema severe (Chronic) Tobacco abuse (Chronic) Underweight (Chronic) PTSD (post-traumatic stress disorder) (Chronic) Obsessive compulsive disorder (Chronic) Noncompliance (Chronic) Hospital Course and Treatment Imaging Results: Clinical Impression(s) from Imaging Studies Chest X-Ray 07/27/18 12:33 IMPRESSION: Stable examination. Marked degree of hyperinflation as well as decreased bilateral bronchovascular markings suggestive of severe emphysema with possible bullous formation in both lungs. Electronically Signed: Jameson Navarro, at 12:51 EDT , Service support , [facility], Pulmonology. Operations: None Procedures: 2-D Echocardiogram, Cardiac catheterization Summary of Care Provided: The patient is a 48 year old F resents with shortness of breath and chest pain. Patient was diagnosed with COPD exacerbation and started on bronchodilators, steroids and antibiotics. Patient also had elevated troponins and cardiology was consulted. Patient underwent a left heart catheterization on the that showed normal coronaries but did show moderate to severe pulmonary hypertension. Pulmonary was consulted to inquire about anticoagulation. Pulmonary recommended Eliquis and follow-up with her normal beam builder, Dr. Tilley, for further evaluation and potential transfer to a pulmonary hypertension clinic. Patient will complete taper of prednisone as outpatient and will be on Eliquis. [] Patient Problems: Active and Suspected Problems (Last Updated 07/30/18 @ 21:15 by Nichole Akbar) COPD exacerbation (Acute) Chest pain (Acute) Abnormal EKG (Acute) Non-STEMI (non-ST elevated myocardial infarction) (Acute) - Physical Exam General: Alert, No apparent distress, - - Appears much older than stated age HEENT: Atraumatic, Normocephalic Oral: Moist Mucosa, No Gingival or Mucosal Lesions/ Ulcerations Neck: No Nodes, Thyroid Normal Size and Texture Lungs: Clear to auscultation, Diminished Cardiovascular: Regular rate, Regular Rhythm, Normal S1, Normal S2 Abdomen: Bowel Sounds Present, Soft, Non Tender, Non-Distended, No Hepato- splenomegaly Extremities: No edema, No Calf Tenderness Vital Signs Temp Pulse Resp BP Pulse Ox 37.0 C 106 H 24 H 107/73 97 07/31/18 09:30 07/31/18 11:01 07/31/18 10:37 07/31/18 09:30 07/31/18 10:37 Oxygen Flow Rate (L/min) 3 Oxygen Delivery Method Nasal Cannula Weight: 39.916 kg Body Mass Index (BMI) 14.1 Intake and Output for Last 24 Hours 07/29/18 07/30/18 07/31/18 23:59 23:59 23:59 Intake Total 1751.4 / 1751.4 406.8 / 406.8 440 / 440 Output Total 3025 / 3025 1125 / 1125 900 / 900 Balance -1273.6 / -1273.6 -718.2 / -718.2 -460 / -460 Microbiology Past 72 Hours 07/27/18 13:45 Blood Culture - Preliminary Blood Culture (Wb) #2 - Right Forearm No growth in 48 hours. 07/27/18 13:40 Blood Culture - Preliminary Blood Culture (Wb) #2 - Anticubital Left No growth in 48 hours. 07/27/18 16:38 Respiratory Panel (PCR) - Final Mucosa - Nasopharyngeal Laboratory Tests Past 24 Hrs 07/30/18 07/30/18 07/30/18 12:32 12:35 12:45 Specimen Type JUNE JUNE ART pH 7.32 L Bicarbonate Actual 32.4 H POC Total CO2 34 Base Excess 6 H O2 Saturation 95 ABG pCO2 63.0 H ABG pO2 83 VBG pH 7.33 7.33 VBG pO2 24 L 26 VBG O2 Sat (Calc) 37 L 41 L VBG O2 Content 37 H 38 H VBG Base Excess 9 H 10 H POC Mix VBG pCO2 Pt Tmp 66.9 H 67.1 H Discharge Diet: Low fat/ Low Cholesterol Discharge Activity: - - activity as tolerated Call your doctor if you observe: Fever of 101 or Higher, Shortness of breath Home Medications: Medications to take at Discharge Ipratropium/Albuterol Sulfate [Duoneb] 3 ml INHALATION 4X/DAY 03/28/16 Budesonide Aerosol [Pulmicort Respules] 0.5 mg INHALATION BID 07/27/18 Calcium Carbonate [Calcium] 500 mg PO TID 07/27/18 Calcium Carbonate/Vitamin D3 [Calcium 600-Vit D3 200 Tablet] 1 tab PO BID 07/27/18 Guaifenesin [Mucus Relief ER] 600 mg PO BID 07/27/18 Lactobacillus Acidophilus [Acidophilus] 1 each PO BID 07/27/18 Loratadine 10 mg PO DAILY 07/27/18 Lorazepam [Ativan] 1 mg PO BID 07/27/18 Melatonin 10 mg PO QHS 07/27/18 Multivitamins,Therapeutic [Multivitamin] 1 tablet PO DAILY 07/27/18 Omeprazole 40 mg PO DAILY 07/27/18 Paroxetine HCl 20 mg PO DAILY 07/27/18 Polyvinyl Alcohol [Artificial Tears] 15 ml OP 4X/DAY 07/27/18 Prednisone 10 mg PO DAILY 07/27/18 Senna [Senokot] 2 tablet PO BID 07/27/18 Trazodone HCl 25 mg PO QHS 07/27/18 busPIRone [Buspar] 7.5 mg PO BID 07/27/18 Fluticasone 0.05% [Flonase Nasal [place]] 1 spray NASAL BID PRN 07/28/18 Acetaminophen [Tylenol Tablet] 500 mg PO Q6H PRN PRN tablet 07/31/18 Apixaban [Eliquis] 5 mg PO BID #75 tablet 07/31/18 Aspirin E.C. [Ecotrin] 81 mg PO DAILY@0800 tablet 07/31/18 Atorvastatin Calcium [Lipitor] 40 mg PO QHS #30 tablet 07/31/18 Diltiazem CD [Cardizem CD] 120 mg PO DAILY #30 capsule 07/31/18 Ensure Enlive 120 ml PO 4X/DAY #30 liquid 07/31/18 Guaifenesin [Mucinex] 600 mg PO BID #10 tablet 07/31/18 Prednisone 10 mg PO DAILY #30 tablet 07/31/18 Following Prescrptions Were Given to Patient: Atorvastatin Calcium [Lipitor] 40 mg PO QHS #30 tablet Diltiazem CD [Cardizem CD] 120 mg PO DAILY #30 capsule Prednisone 10 mg PO DAILY #30 tablet Apixaban [Eliquis] 5 mg PO BID #75 tablet Guaifenesin [Mucinex] 600 mg PO BID #10 tablet Ensure Enlive 120 ml PO 4X/DAY #30 liquid Primary Care Physician: Ruddy Mari DO [Primary Care Provider] - Within 2 Weeks Please Follow Up With: Christiano Tilley MD When: 4-6 weeks Disposition: Asstd Living/Non-Skill [place] Minutes spent on discharge:: 35 Patient Condition:: Fair Medical Necessity - Tobacco Use Smoking Status: Current every day smoker Meaningful Use Info Meaningful Use Diagnoses (Choose all that apply): None applicable Code Visit Inpatient E&M: 04745 Disch Hosp
--- NOTE | 2018-07-31 12:22 | CASEMGMT ---
Call to Talisha at [facility] retail pharmacy and she states that pt's co-pay for Eliquis is $2.00 as well as the Mucinex is $2.00. Jah SILVER aware, voices understanding. Norah WALLACE CM
--- NOTE | 2018-07-31 14:13 | CASEMGMT ---
Social Work: Patient to be discharged back to [facility] today. Patient is aware and does not have a preference for transportation. TC to [facility]. Spoke with Mayra who is asking for D/C instructions to be faxed. D/C summary and D/C instructions faxed to [facility]. TC to [facility]. Wheelchair van transport scheduled for 3:30pm. Spoke with patient who is aware that [facility] will be picking her up at 3:30pm. TC to [facility]. Spoke with caser in garbage person (Mary Anne) as Giancarlo Parkinson (patient's caser in) is out of the office. PLAN: Patient to return to [facility] today. SIDRA Wong
--- NOTE | 2018-07-31 15:12 | NURSING ---
report called to [facility] at this time.
== END 2018-07-31 15:42 | disposition home or self-care (01) | DRG 190 ==
LOC: ED 13:21 → PCU 15:33
PROVIDERS: Internal Medicine Cardiovascular Disease; Student in an Organized Health Care Education/Training Program; Admitting Provider Internal Medicine; Emergency Provider Emergency Medicine; Family Provider Student in an Organized Health Care Education/Training Program; PCP Student in an Organized Health Care Education/Training Program; Referring Provider Internal Medicine
DX: I21.4 Non-ST elevation (NSTEMI) myocardial infarction (principal); I27.23 Pulmonary hypertension due to lung diseases and hypoxia; E43 Unspecified severe protein-calorie malnutrition; Z99.81 Dependence on supplemental oxygen; J44.1 Chronic obstructive pulmonary disease with (acute) exacerbation; Z68.1 Body mass index [BMI] 19.9 or less, adult; F17.210 Nicotine dependence, cigarettes, uncomplicated; J44.9 Chronic obstructive pulmonary disease, unspecified; M81.0 Age-related osteoporosis without current pathological fracture; G25.81 Restless legs syndrome; F41.0 Panic disorder [episodic paroxysmal anxiety]; G62.9 Polyneuropathy, unspecified; F43.10 Post-traumatic stress disorder, unspecified; F42.8 Other obsessive-compulsive disorder; F41.1 Generalized anxiety disorder
CPT/HCPCS: 36415; 36600; 71045; 80048; 80053; 80061; 81001; 81025; 82803; 83605; 83735; 84132; 84439; 84443; 84481; 84484; 85025; 85027; 85610; 85730; 87040; 87633; 93005; 93306; 93460; 94640; 94667; 94668; 97110; 97162; 97165; 97802; 99285; 99406; J7030; J7040; Q9967; A4216; C1751; C1769; C1894

== ENCOUNTER 2018-08-01 05:39 | Emergency (ER) | payer MEDICAID, SELFPAY ==
[2018-07-27 16:08] VITALS: BMI 14.1
[2018-08-01] VITALS (12 sets, daily range): BP systolic 113–134; BP diastolic 57–81; PULSE 98–107; RESP 12–24; TEMP 36.2–36.5; O2SAT 90–97; BMI 14.2
--- NOTE | 2018-08-01 05:45 | EKG12_ITS ---
Test Reason : CP Blood Pressure : / mmHG Vent. Rate : 102 BPM Atrial Rate : 102 BPM P-R Int : 118 ms QRS Dur : 072 ms QT Int : 380 ms P-R-T Axes : 081 077 268 degrees QTc Int : 495 ms Sinus tachycardia Biatrial enlargement ST & T wave abnormality, consider inferior ischemia ST & T wave abnormality, consider anterolateral ischemia Abnormal ECG Confirmed by MIGUEL WASHINGTON, GOLD ([id number]), research editor MICHEL KINNEY ([id number]) on 08/07/2018 2:18:01 PM Referred By: Juan Skaggs Confirmed By:GOLD RIVERA MD
--- NOTE | 2018-08-01 06:17 | ED.RN ---
ex contacted and notified patient is in the er [phone]
[2018-08-01 06:20] LABS: Absolute Lymphocyte Count 1.12 X10^3/ul (0.83-4.51); Absolute Neutrophil Count 14.6 X10^3/uL (2.0-7.7); Basophil# 0.01 X10^3/uL; Basophil% 0.1 % (0-1); Eosinophil# 0.01 X10^3/uL; Eosinophils% 0.1 % (0-5); Hematocrit 33.3 % (37-47); Hemoglobin 10.4 g/dl (12.0-15.0); Lymphocyte # 1.12 X10^3/ul (4.0); Lymphocyte % 6.3 % (19-41); Mean Corp Hgb Conc 31.2 g/gl (32-36); Mean Corpuscular Hgb 29.2 pg (27.0-32.0); Mean Corpuscular Volume 93.5 fL (81-99); Mean Platelet Vol. 11.3 fl (6.2-12.0); Monocyte# 1.86 X10^3/uL; Monocyte% 10.5 % (0-10); Neutrophil # 14.63 X10^3/uL (2.7-7.7); Neutrophil % 82.7 % (47-70); Platelet Count 182 K/mm3 (150-450); RBC Distribution Width CV 13.5 % (11.6-14.6); RBC Distribution Width SD 44.3 fl (35.1-43.9); Red Blood Count 3.56 M/mm3 (4.2-5.4); White Blood Count 17.7 K/mm3 (4.4-11.0)
[2018-08-01 06:21] LABS: Differential Indicated SCAN CRITERIA MET; POSITIVE COUNT NO; POSITIVE DIFFERENTIAL YES; POSITIVE MORPHOLOGY NO
[2018-08-01 06:25] LABS: Anion Gap 0 (5-15); BUN 17 mg/dL (7-18); BUN/Creat Ratio 35.3 RATIO (10-20); Chloride 99 mmol/L (98-107); Creatinine, Serum 0.48 mg/dL (0.55-1.02); EST Glomerular Filtration Rate 145 mL/min (>60); Est Glom Filt Rate - Afr Amer 175 mL/min (>60); Estimated Creatinine Clearance 88.36 ml/min; Glucose 152 mg/dL (74-106); Potassium 3.8 mmol/L (3.5-5.1); Sodium Level 138 mmol/L (136-145)
[2018-08-01] MEDS: LORazepam 2 MG/ML Syringe 1 MG IV (06:37)
--- NOTE | 2018-08-01 06:40 | RAD_ITS ---
HISTORY: shortness of breath, Hx COPD, smoker, recent heart attack EXAM:XR Chest 2 Views COMPARISON: 07/27/2018 FINDINGS: EKG leads in place. Left lower lobe infiltrate, new compared to previous, compatible with pneumonia. Chronic lung disease with severe upper lobe emphysema, worse on the left. Secondary hyperinflation and hyperlucency of the lungs. No pneumothorax seen. Normal heart size. Dorsal kyphosis. RAD/Chest PA and Lateral IMPRESSION: 1. Left lower lobe infiltrate, new compared to recent exam, compatible with pneumonia. 2. Severe emphysema. at 0717 Reported and signed by: Nemesio Peters MD Electronically Signed: Nemesio Peters, at 7:16 EDT Tel , Service support ,
[2018-08-01] MEDS: Ipratropium/Albuterol Sulfate 3 ML AMPUL.NEB INHALATION ×2 (06:43→09:58)
[2018-08-01] MEDS: Albuterol 2.5 MG/3 ML VIAL.NEB. INHALATION ×2 (06:43→11:01)
[2018-08-01 06:59] LABS: Differential Comment SCANNED
--- NOTE | 2018-08-01 07:05 | ED.VISSUMM ---
- ER Visit Summary Date of Service: 08/01/18 Chief Complaint: Shortness of breath History of Present Illness: The patient is a 48 F who presents with shortness of breath. She has a history of COPD and pulmonary hypertension. She was recently admitted for elevated troponins and diagnosed with an NSTEMI. She underwent cardiac catheterization which was angiographically normal. She was started on anticoagulation for moderate to severe pulmonary hypertension. She was also treated for a COPD exacerbation. She was discharged yesterday. She states she became more short of breath yesterday. She does complain of some congestion rhinorrhea and cough. She is also had some diarrhea. She states that she had 2 episodes of chest pain but is currently pain-free. No fever. No vomiting. Physical Examination: Afebrile heart rate 107 respiratory rate 19 pulse ox 93% on 4 L Very thin female in moderate respiratory distress Tachypnea with diminished sounds decreased air exchange and wheezing Heart regular tachycardia Abdomen soft Alert Test Results: EKG shows sinus rhythm at a rate of [address] depression in the inferior leads and V3 through V6 as well as T wave inversions. This is overall similar to prior. Labs are notable for white blood cell count 17.7. Troponin is 0.116 which is near what she was while she was in hospital. Chest x-ray on my review is consistent with a left lower infiltrate. Emergency Department Course and Treatment: Patient was given albuterol and Atrovent aerosols. She was also given IV Ativan for anxiety. On reevaluation she is still tachypneic with increased work of breathing. She was treated for healthcare associated pneumonia with IV Zosyn and vancomycin. Lactic acid pending at the time of this dictation and blood cultures ordered. I spoke to the hospitalist for admission. Treatment Plan: [] Disposition: Admit Impression: Healthcare associated pneumonia This note was generated with [employer] dictation software. It may contain incorrect words, spelling, and punctuation that were not noted in review of the chart prior to signing ED Disposition - Plan for ED Patient: Referrals: Ruddy Mari DO [Primary Care Provider] -
--- NOTE | 2018-08-01 07:08 | NURSING ---
DR MACARIO FOR DR MORA
--- NOTE | 2018-08-01 07:20 | NURSING ---
[facility]IR[facility]
--- NOTE | 2018-08-01 07:23 | NURSING ---
CALLING [facility] MAIN
--- NOTE | 2018-08-01 07:39 | NURSING ---
[facility] FOR DR MORA
[2018-08-01 07:44] LABS: Lactic Acid 0.9 mmol/L (0.4-2.0)
[2018-08-01] MEDS: 0.9% Normal Saline 1,000 ML 999 ML IV (07:53)
--- NOTE | 2018-08-01 08:44 | NURSING ---
CALLED [facility] ABOUT PULMONALOGIST CALLING BACK. THEY ARE WAITING AGRICULTURAL EDUCATION TEACHER.
[2018-08-01] MEDS: Vancomycin IV 500 MG/100 ML BAG 100 MG IV (09:15)
--- NOTE | 2018-08-01 09:49 | NURSING ---
[facility] 3W 317 NURSE TO NURSE [phone]
--- NOTE | 2018-08-01 10:36 | NURSING ---
CALLED [facility]. TALKED TO ELANA. ETA IS ABOUT 1.5 HRS
[2018-08-01 11:40] LABS: Base Excess 11 mmol/L (-2 to +2); Bicarbonate 39.2 mmol/L (22-26); Blood Gas Specimen Type ART; O2 Delivery Device Nasal Can; PO2 67 mmHG (75-100); SITE R Radial; SO2 87 % (95-99); Time Given 1131; Total Carbon Dioxide 42 mmol/L; pCO2 96.8 mmHg (35-45); pH 7.22 (7.35-7.45)
--- NOTE | 2018-08-01 11:50 | CPS ---
Patient tolerated 3 minutes of BiPAP.
--- NOTE | 2018-08-01 12:06 | CPS ---
Critical ABG results handed to Dr. Bishop at 1137.
--- NOTE | 2018-08-01 12:35 | PCM.CONS.GEN ---
Problem List (1) COPD exacerbation Status: Acute (2) Pulmonary hypertension Status: Chronic Comment: Severe per [facility] done 07/30/2018 Reason for Consult Date of Consultation: 08/01/18 Reason for Consultation: admssion for COPD and possible pneumonia History of Present Illness: The patient is a 48 year old F who was admitted 07/27 through 07/31 for COPD exacerbation, and non-STEMI. Patient had a left heart catheterization showed normal coronaries but moderate to severe pulmonary hypertension. Pulmonary was consulted at that time to evaluate for appropriateness for anticoagulation. Patient did not have a VQ scan but was barely put on Eliquis and encouraged to have follow-up with her chemical equipment sales engineer for further studies, such as VQ scan for chronic venous thromboembolic disease. Patient was overall doing better when she was discharged and discharged with prednisone. At home, patient was not feeling any better and progressively got more short of breath. Presented to the emergency room and was felt to have possible left lower lobe infiltrate and recommended admission. I discussed with Dr. You, and feel that given her pulmonary hypertension that she would be best suited at a facility that has a pulmonary hypertension staff that can evaluate her and potentially start her on medications to help alleviate that. It is unclear what type part of her pulmonary hypertension as she does have [] Past Medical History Past Medical History (Chronic Problems): Chronic Problems (Last Updated 07/30/18 @ 21:15 by Nichole Akbar) Pulmonary hypertension (Chronic) Severe per [facility] done 07/30/2018 History of left heart catheterization (Chronic 07/30/18) Normal coronary arteries; Preserved Left Ventricular systolic function with normal EDP; The patient has pulmonary hypertension which is moderate to severe per C done by ARNEL @ [facility] 07/30/18 COPD exacerbation (Chronic) Osteoporosis (Chronic) Neuropathy (Chronic) Restless leg syndrome (Chronic) Moderate malnutrition (Chronic) Panic attacks (Chronic) Generalized anxiety disorder (Chronic) COPD emphysema severe (Chronic) Tobacco abuse (Chronic) Underweight (Chronic) PTSD (post-traumatic stress disorder) (Chronic) Obsessive compulsive disorder (Chronic) Noncompliance (Chronic) Medical History: Medical History (Last Updated 07/30/18 @ 21:15 by Nichole Akbar) Pulmonary hypertension (Chronic) I27.20 Severe per [facility] done 07/30/2018 Allergies sulfasalazine Allergy (Verified 08/01/18 05:41) Hives aspartame [From Nutrasweet Aspartame] Adverse Reaction (Verified 08/01/18 05:41) light headedness and nausea light headedness and nausea citric acid Adverse Reaction (Verified 08/01/18 05:41) Mucosal lesions docusate sodium [From Colace] Adverse Reaction (Verified 08/01/18 05:41) dizzy, lightheaded, hallucinations dizzy, light headed, hallucinations fluoxetine Adverse Reaction (Verified 08/01/18 05:41) made me mean made me mean nicotine polacrilex [From Nicorette] Adverse Reaction (Verified 08/01/18 05:41) dizzy spells, light headedness dizzy spells, light headedness phenytoin sodium [From Dilantin] Adverse Reaction (Verified 08/01/18 05:41) made me feel drugged up used for scleroderma, made me feel drugged up phenytoin sodium extended [From Dilantin] Adverse Reaction (Verified 08/01/18 05:41) made me feel drugged up Home Medications: Ambulatory Orders Medication Instructions Recorded Ipratropium/Albuterol Sulfate 3 ml INHALATION 4X/DAY 03/28/16 [Duoneb] Budesonide Aerosol [Pulmicort 0.5 mg INHALATION BID 07/27/18 Respules] Calcium Carbonate [Calcium] 500 mg PO TID 07/27/18 Calcium Carbonate/Vitamin D3 1 tab PO BID 07/27/18 [Calcium 600-Vit D3 200 Tablet] Guaifenesin [Mucus Relief ER] 600 mg PO BID 07/27/18 Lactobacillus Acidophilus 1 each PO BID 07/27/18 [Acidophilus] Loratadine 10 mg PO DAILY 07/27/18 Lorazepam [Ativan] 1 mg PO BID 07/27/18 Melatonin 10 mg PO QHS 07/27/18 Multivitamins,Therapeutic 1 tablet PO DAILY 07/27/18 [Multivitamin] Omeprazole 40 mg PO DAILY 07/27/18 Paroxetine HCl 20 mg PO DAILY 07/27/18 Polyvinyl Alcohol [Artificial 15 ml OP 4X/DAY 07/27/18 Tears] Prednisone 10 mg PO DAILY 07/27/18 Senna [Senokot] 2 tablet PO BID 07/27/18 Trazodone HCl 25 mg PO QHS 07/27/18 busPIRone [Buspar] 7.5 mg PO BID 07/27/18 Fluticasone 0.05% [Flonase Nasal 1 spray NASAL BID PRN 07/28/18 [place]] Acetaminophen [Tylenol Tablet] 500 mg PO Q6H PRN PRN tablet 07/31/18 Apixaban [Eliquis] 5 mg PO BID #75 tablet 07/31/18 Aspirin E.C. [Ecotrin] 81 mg PO DAILY@0800 tablet 07/31/18 Atorvastatin Calcium [Lipitor] 40 mg PO QHS #30 tablet 07/31/18 Diltiazem CD [Cardizem CD] 120 mg PO DAILY #30 capsule 07/31/18 Ensure Enlive 120 ml PO 4X/DAY #30 liquid 07/31/18 Guaifenesin [Mucinex] 600 mg PO BID #10 tablet 07/31/18 Surgical History: Surgical History (Last Reviewed 08/01/18 @ 12:38 by Shaun Reynolds DO) History of left heart catheterization (Chronic) Onset Date: 07/30/18 Z98.890 Normal coronary arteries; Preserved Left Ventricular systolic function with normal EDP; The patient has pulmonary hypertension which is moderate to severe per LHC done by ARNEL @ [facility] 07/30/18 Surgical History: noncontributory Smoking Status: Current every day smoker - *Family History Maternal History Items: - - Scoliosis and possible bipolar disorder Paternal History Items: Asthma, COPD, Diabetes, Dementia, Heart Disease, Hypertension Sibling History Items: Asthma Offspring History Items: Asthma Review of Systems Constitutional: Reports: Malaise, Weakness. Denies: Anorexia, Chills, Fever Eyes: Denies: Blurred vision, Double vision HEENT: Denies: Head Aches, Sinus Congestion, Sinus Drainage Cardiovascular: Denies: Chest Pain, Edema Respiratory: Reports: Cough, Shortness of Breath, Shortness of breath upon exertion Gastrointestinal: Denies: Abdominal Pain, Nausea, Vomiting Genitourinary: Denies: Dysuria Musculoskeletal: Denies: Joint Pain, Joint Tenderness Skin: Reports: - - brusing. Denies: Rash, Wounds Neurological: Denies: Numbness, Tingling, Focal weakness Psychiatric: Reports: Anxiety Hematologic/ Lymphatic: Reports: Easy Bruising. Denies: Easy Bleeding, Hx of blood clot Comment: A 10 point review of systems were negative except as mentioned in the history of present illness and the other review of systems. - Physical Exam General: Alert, - - Up in bed. Cachectic. Afebrile. No conversational dyspnea. HEENT: Atraumatic, Normocephalic, - - No scleral icterus Oral: Moist Mucosa, No Gingival or Mucosal Lesions/ Ulcerations Neck: No Nodes, Thyroid Normal Size and Texture Lungs: Diminished, Wheezes - Faint bilaterally Cardiovascular: Regular rate, Regular Rhythm, Normal S1, Normal S2, No murmurs Abdomen: Bowel Sounds Present, Soft, Non Tender, Non-Distended, No Hepato-splenomegaly Extremities: No edema, No Calf Tenderness Skin: No rashes, No breakdown, - - Some bruising on upper extremities Musculoskeletal: No Tenderness to Palpation of Joints or Extremities, No Muscle Wasting Neurological: - - No clonus. No hyperreflexia. Psych/Mental Status: Appropriate, Flat Affect Vital Signs Temp Pulse Resp BP Pulse Ox 36.3 C L 98 21 H 117/75 94 08/01/18 10:25 08/01/18 12:07 08/01/18 12:07 08/01/18 12:07 08/01/18 12:07 Oxygen Flow Rate (L/min) 4 Oxygen Delivery Method Nasal Cannula Weight: 39.916 kg Body Mass Index (BMI) 14.2 Laboratory Tests Past 24 Hrs 08/01/18 08/01/18 08/01/18 05:45 05:45 07:10 WBC 17.7 H RBC 3.56 L Hgb 10.4 L Hct 33.3 L MCV 93.5 MCH 29.2 MCHC 31.2 L RDW 13.5 RDW Differential 44.3 H Plt Count 182 MPV 11.3 Immature Gran % (Auto) 0.300 Neut % (Auto) 82.7 H Lymph % (Auto) 6.3 L [place] % (Auto) 10.5 H Eos % (Auto) 0.1 Baso % (Auto) 0.1 Absolute Neuts (auto) 14.6 H Absolute Lymphs (auto) 1.12 Total Counted Not Reportable Differential Comment SCANNED Diff Path Review May foll Specimen Type Sample Site pH Bicarbonate Actual POC Total CO2 Base Excess O2 Saturation ABG pCO2 ABG pO2 O2 Delivery Device Liter Flow Blood Gas Notified Whom Blood Gas Notified Time Sodium 138 Potassium 3.8 Chloride 99 Carbon Dioxide 39.0 H Anion Gap 0 L BUN 17 Creatinine 0.48 L Estim Creat Clear Calc 88.36 Est GFR (MDRD) Af Amer 175 Est GFR (MDRD) Non-Af 145 BUN/Creatinine Ratio 35.3 H Glucose 152 H Lactic Acid 0.9 Calcium 8.0 L Troponin I 0.116 H 08/01/18 11:32 WBC RBC Hgb Hct MCV MCH MCHC RDW RDW Differential Plt Count MPV Immature Gran % (Auto) Neut % (Auto) Lymph % (Auto) [place] % (Auto) Eos % (Auto) Baso % (Auto) Absolute Neuts (auto) Absolute Lymphs (auto) Total Counted Differential Comment Diff Path Review Specimen Type ART Sample Site R Radial pH 7.22 L Bicarbonate Actual 39.2 H POC Total CO2 42 Base Excess 11 H O2 Saturation 87 L ABG pCO2 96.8 H* ABG pO2 67 L O2 Delivery Device Nasal Can Liter Flow 4.0 Blood Gas Notified Whom ED MD Blood Gas Notified Time 1131 Sodium Potassium Chloride Carbon Dioxide Anion Gap BUN Creatinine Estim Creat Clear Calc Est GFR (MDRD) Af Amer Est GFR (MDRD) Non-Af BUN/Creatinine Ratio Glucose Lactic Acid Calcium Troponin I Chest x-ray reviewed and showed hyperinflated airways with flattening of the diaphragm. Some chronic changes noted in the left lower lobe. Assessment/Plan All Active Problems (Last Updated 07/30/18 @ 21:15 by Nichole Akbar) COPD exacerbation (Acute) Chest pain (Acute) Abnormal EKG (Acute) Non-STEMI (non-ST elevated myocardial infarction) (Acute) Shortness of breath (Acute) Thrush (Acute) Hyponatremia (Resolved) 1. Acute exacerbation of COPD: This is on top of the patient's known moderate to severe pulmonary hypertension. Recommend IV steroids, bronchodilators. 2. Pulmonary hypertension: Unclear if primary pulmonary hypertension or related with chronic venous thrombi embolic disease with pulmonology. Discussed with Dr. You who advised transfer to facility with pulmonary hypertension program where she be evaluated and started on further workup. Discussed with Dr. Arredondo about the recommendations. Code Visit Office Visits / Consults: [id number] OP Consult L4
--- NOTE | 2018-08-01 12:39 | CON.PCM_ITS ---
Problem List (1) COPD exacerbation Status: Acute (2) Pulmonary hypertension Status: Chronic Comment: Severe per [facility] done 07/30/2018 Reason for Consult Date of Consultation: 08/01/18 Reason for Consultation: admssion for COPD and possible pneumonia History of Present Illness: The patient is a 48 year old F who was admitted 07/27 through 07/31 for COPD exacerbation, and non-STEMI. Patient had a left heart catheterization showed normal coronaries but moderate to severe pulmonary hypertension. Pulmonary was consulted at that time to evaluate for appropriateness for anticoagulation. Patient did not have a VQ scan but was barely put on Eliquis and encouraged to have follow-up with her denture laboratory technician for further studies, such as VQ scan for chronic venous thromboembolic disease. Patient was overall doing better when she was discharged and discharged with prednisone. At home, patient was not feeling any better and progressively got more short of breath. Presented to the emergency room and was felt to have possible left lower lobe infiltrate and recommended admission. I discussed with Dr. You, and feel that given her pulmonary hypertension that she would be best suited at a facility that has a pulmonary hypertension staff that can evaluate her and potentially start her on medications to help alleviate that. It is unclear what type part of her pulmonary hypertension as she does have [] Past Medical History Past Medical History (Chronic Problems): Chronic Problems (Last Updated 07/30/18 @ 21:15 by Nichole Akbar) Pulmonary hypertension (Chronic) Severe per [facility] done 07/30/2018 History of left heart catheterization (Chronic 07/30/18) Normal coronary arteries; Preserved Left Ventricular systolic function with normal EDP; The patient has pulmonary hypertension which is moderate to severe per C done by ARNEL @ [facility] 07/30/18 COPD exacerbation (Chronic) Osteoporosis (Chronic) Neuropathy (Chronic) Restless leg syndrome (Chronic) Moderate malnutrition (Chronic) Panic attacks (Chronic) Generalized anxiety disorder (Chronic) COPD emphysema severe (Chronic) Tobacco abuse (Chronic) Underweight (Chronic) PTSD (post-traumatic stress disorder) (Chronic) Obsessive compulsive disorder (Chronic) Noncompliance (Chronic) Medical History: Medical History (Last Updated 07/30/18 @ 21:15 by Nichole Akbar) Pulmonary hypertension (Chronic) I27.20 Severe per [facility] done 07/30/2018 Allergies sulfasalazine Allergy (Verified 08/01/18 05:41) Hives aspartame [From Nutrasweet Aspartame] Adverse Reaction (Verified 08/01/18 05:41) light headedness and nausea light headedness and nausea citric acid Adverse Reaction (Verified 08/01/18 05:41) Mucosal lesions docusate sodium [From Colace] Adverse Reaction (Verified 08/01/18 05:41) dizzy, lightheaded, hallucinations dizzy, light headed, hallucinations fluoxetine Adverse Reaction (Verified 08/01/18 05:41) made me mean made me mean nicotine polacrilex [From Nicorette] Adverse Reaction (Verified 08/01/18 05:41) dizzy spells, light headedness dizzy spells, light headedness phenytoin sodium [From Dilantin] Adverse Reaction (Verified 08/01/18 05:41) made me feel drugged up used for scleroderma, made me feel drugged up phenytoin sodium extended [From Dilantin] Adverse Reaction (Verified 08/01/18 05:41) made me feel drugged up Home Medications: Ambulatory Orders Medication Instructions Recorded Ipratropium/Albuterol Sulfate 3 ml INHALATION 4X/DAY 03/28/16 [Duoneb] Budesonide Aerosol [Pulmicort 0.5 mg INHALATION BID 07/27/18 Respules] Calcium Carbonate [Calcium] 500 mg PO TID 07/27/18 Calcium Carbonate/Vitamin D3 1 tab PO BID 07/27/18 [Calcium 600-Vit D3 200 Tablet] Guaifenesin [Mucus Relief ER] 600 mg PO BID 07/27/18 Lactobacillus Acidophilus 1 each PO BID 07/27/18 [Acidophilus] Loratadine 10 mg PO DAILY 07/27/18 Lorazepam [Ativan] 1 mg PO BID 07/27/18 Melatonin 10 mg PO QHS 07/27/18 Multivitamins,Therapeutic 1 tablet PO DAILY 07/27/18 [Multivitamin] Omeprazole 40 mg PO DAILY 07/27/18 Paroxetine HCl 20 mg PO DAILY 07/27/18 Polyvinyl Alcohol [Artificial 15 ml OP 4X/DAY 07/27/18 Tears] Prednisone 10 mg PO DAILY 07/27/18 Senna [Senokot] 2 tablet PO BID 07/27/18 Trazodone HCl 25 mg PO QHS 07/27/18 busPIRone [Buspar] 7.5 mg PO BID 07/27/18 Fluticasone 0.05% [Flonase Nasal 1 spray NASAL BID PRN 07/28/18 [place]] Acetaminophen [Tylenol Tablet] 500 mg PO Q6H PRN PRN tablet 07/31/18 Apixaban [Eliquis] 5 mg PO BID #75 tablet 07/31/18 Aspirin E.C. [Ecotrin] 81 mg PO DAILY@0800 tablet 07/31/18 Atorvastatin Calcium [Lipitor] 40 mg PO QHS #30 tablet 07/31/18 Diltiazem CD [Cardizem CD] 120 mg PO DAILY #30 capsule 07/31/18 Ensure Enlive 120 ml PO 4X/DAY #30 liquid 07/31/18 Guaifenesin [Mucinex] 600 mg PO BID #10 tablet 07/31/18 Surgical History: Surgical History (Last Reviewed 08/01/18 @ 12:38 by Shaun Reynolds DO) History of left heart catheterization (Chronic) Onset Date: 07/30/18 Z98.890 Normal coronary arteries; Preserved Left Ventricular systolic function with normal EDP; The patient has pulmonary hypertension which is moderate to severe per LHC done by ARNEL @ [facility] 07/30/18 Surgical History: noncontributory Smoking Status: Current every day smoker - *Family History Maternal History Items: - - Scoliosis and possible bipolar disorder Paternal History Items: Asthma, COPD, Diabetes, Dementia, Heart Disease, Hypertension Sibling History Items: Asthma Offspring History Items: Asthma Review of Systems Constitutional: Reports: Malaise, Weakness. Denies: Anorexia, Chills, Fever Eyes: Denies: Blurred vision, Double vision HEENT: Denies: Head Aches, Sinus Congestion, Sinus Drainage Cardiovascular: Denies: Chest Pain, Edema Respiratory: Reports: Cough, Shortness of Breath, Shortness of breath upon exertion Gastrointestinal: Denies: Abdominal Pain, Nausea, Vomiting Genitourinary: Denies: Dysuria Musculoskeletal: Denies: Joint Pain, Joint Tenderness Skin: Reports: - - brusing. Denies: Rash, Wounds Neurological: Denies: Numbness, Tingling, Focal weakness Psychiatric: Reports: Anxiety Hematologic/ Lymphatic: Reports: Easy Bruising. Denies: Easy Bleeding, Hx of blood clot Comment: A 10 point review of systems were negative except as mentioned in the history of present illness and the other review of systems. - Physical Exam General: Alert, - - Up in bed. Cachectic. Afebrile. No conversational dyspnea. HEENT: Atraumatic, Normocephalic, - - No scleral icterus Oral: Moist Mucosa, No Gingival or Mucosal Lesions/ Ulcerations Neck: No Nodes, Thyroid Normal Size and Texture Lungs: Diminished, Wheezes - Faint bilaterally Cardiovascular: Regular rate, Regular Rhythm, Normal S1, Normal S2, No murmurs Abdomen: Bowel Sounds Present, Soft, Non Tender, Non-Distended, No Hepato- splenomegaly Extremities: No edema, No Calf Tenderness Skin: No rashes, No breakdown, - - Some bruising on upper extremities Musculoskeletal: No Tenderness to Palpation of Joints or Extremities, No Muscle Wasting Neurological: - - No clonus. No hyperreflexia. Psych/Mental Status: Appropriate, Flat Affect Vital Signs Temp Pulse Resp BP Pulse Ox 36.3 C L 98 21 H 117/75 94 08/01/18 10:25 08/01/18 12:07 08/01/18 12:07 08/01/18 12:07 08/01/18 12:07 Oxygen Flow Rate (L/min) 4 Oxygen Delivery Method Nasal Cannula Weight: 39.916 kg Body Mass Index (BMI) 14.2 Laboratory Tests Past 24 Hrs 08/01/18 08/01/18 08/01/18 05:45 05:45 07:10 WBC 17.7 H RBC 3.56 L Hgb 10.4 L Hct 33.3 L MCV 93.5 MCH 29.2 MCHC 31.2 L RDW 13.5 RDW Differential 44.3 H Plt Count 182 MPV 11.3 Immature Gran % (Auto) 0.300 Neut % (Auto) 82.7 H Lymph % (Auto) 6.3 L [place] % (Auto) 10.5 H Eos % (Auto) 0.1 Baso % (Auto) 0.1 Absolute Neuts (auto) 14.6 H Absolute Lymphs (auto) 1.12 Total Counted Not Reportable Differential Comment SCANNED Diff Path Review May foll Specimen Type Sample Site pH Bicarbonate Actual POC Total CO2 Base Excess O2 Saturation ABG pCO2 ABG pO2 O2 Delivery Device Liter Flow Blood Gas Notified Whom Blood Gas Notified Time Sodium 138 Potassium 3.8 Chloride 99 Carbon Dioxide 39.0 H Anion Gap 0 L BUN 17 Creatinine 0.48 L Estim Creat Clear Calc 88.36 Est GFR (MDRD) Af Amer 175 Est GFR (MDRD) Non-Af 145 BUN/Creatinine Ratio 35.3 H Glucose 152 H Lactic Acid 0.9 Calcium 8.0 L Troponin I 0.116 H 08/01/18 11:32 WBC RBC Hgb Hct MCV MCH MCHC RDW RDW Differential Plt Count MPV Immature Gran % (Auto) Neut % (Auto) Lymph % (Auto) [place] % (Auto) Eos % (Auto) Baso % (Auto) Absolute Neuts (auto) Absolute Lymphs (auto) Total Counted Differential Comment Diff Path Review Specimen Type ART Sample Site R Radial pH 7.22 L Bicarbonate Actual 39.2 H POC Total CO2 42 Base Excess 11 H O2 Saturation 87 L ABG pCO2 96.8 H* ABG pO2 67 L O2 Delivery Device Nasal Can Liter Flow 4.0 Blood Gas Notified Whom ED MD Blood Gas Notified Time 1131 Sodium Potassium Chloride Carbon Dioxide Anion Gap BUN Creatinine Estim Creat Clear Calc Est GFR (MDRD) Af Amer Est GFR (MDRD) Non-Af BUN/Creatinine Ratio Glucose Lactic Acid Calcium Troponin I Chest x-ray reviewed and showed hyperinflated airways with flattening of the diaphragm. Some chronic changes noted in the left lower lobe. Assessment/Plan All Active Problems (Last Updated 07/30/18 @ 21:15 by Nichole Akbar) COPD exacerbation (Acute) Chest pain (Acute) Abnormal EKG (Acute) Non-STEMI (non-ST elevated myocardial infarction) (Acute) Shortness of breath (Acute) Thrush (Acute) Hyponatremia (Resolved) 1. Acute exacerbation of COPD: This is on top of the patient's known moderate to severe pulmonary hypertension. Recommend IV steroids, bronchodilators. 2. Pulmonary hypertension: Unclear if primary pulmonary hypertension or related with chronic venous thrombi embolic disease with pulmonology. Discussed with Dr. You who advised transfer to facility with pulmonary hypertension program where she be evaluated and started on further workup. Discussed with Dr. Arredondo about the recommendations. Code Visit Office Visits / Consults: [id number] OP Consult L4
[2018-08-01 13:50] LABS: Pathologist Review Reviewed
== END 2018-08-01 12:11 | disposition short-term general hospital (02) ==
LOC: ED 06:07
PROVIDERS: Emergency Provider Emergency Medicine; Family Provider Student in an Organized Health Care Education/Training Program; PCP Student in an Organized Health Care Education/Training Program
DX: J18.9 Pneumonia, unspecified organism (principal); I27.20 Pulmonary hypertension, unspecified; Z79.01 Long term (current) use of anticoagulants; J44.9 Chronic obstructive pulmonary disease, unspecified; I25.10 Atherosclerotic heart disease of native coronary artery without angina pectoris; I25.2 Old myocardial infarction; Z95.5 Presence of coronary angioplasty implant and graft; Z72.0 Tobacco use; F41.9 Anxiety disorder, unspecified; F43.10 Post-traumatic stress disorder, unspecified
CPT/HCPCS: 36600; 71046; 80048; 82803; 83605; 84484; 85025; 87040; 93005; 94002; 94640; 99285; J7030; A4216